=== PATIENT | female | born 1950 | race Caucasian/White ===

== ENCOUNTER → 2016-12-26 | Outpatient (CLI) | payer OTHER, MEDICAID ==
[2016-10-19 11:35] VITALS: BP 131/76
--- NOTE | 2016-12-26 15:43 | VAS ---
HISTORY: Feet skin changing colors Study: Bilateral lower extremity arterial pressure and waveform analysis without exercise Comparison: None Findings: Segmental pressure and waveform analysis of the right and left lower extremity were obtained from th e common femoral artery to tibial vasculature. The right and left lower extremities demonstrate tri phasic waveforms with normal segmental pressures. Normal ABIs are observed. An MISA of 1.19 is obse rved on the right. MISA of 1.13 is observed on the left. IMPRESSION: Normal evaluation of segmental pressure and waveform analysis of the right and left lower extremity. Reported By:
== END ==
LOC: RAD 13:14
PROVIDERS: ATTEND Nurse Practitioner Family
DX: I77.89 Other specified disorders of arteries and arterioles (principal); R23.8 Other skin changes; I73.00 Raynaud's syndrome without gangrene
CPT/HCPCS: 93922

== ENCOUNTER → 2017-01-06 | Outpatient (CLI) | payer OTHER, MEDICAID ==
[2016-10-19 11:35] VITALS: BP 131/76
[2017-01-06 09:03] LABS: ALBUMIN 3.3 g/dL (3.4-5.0); BILIRUBIN,DIRECT 0.08 mg/dL (0-0.2); CHOL/HDL RATIO 2.8 (0.0-5.0); TOTAL PROTEIN 6.8 g/dL (6.4-8.2)
== END ==
LOC: LAB 08:17
PROVIDERS: ATTEND Internal Medicine Cardiovascular Disease
DX: R00.2 Palpitations (principal); E78.2 Mixed hyperlipidemia
CPT/HCPCS: 36415; 80061; 80076

== ENCOUNTER → 2017-02-11 | Outpatient (CLI) | payer OTHER, MEDICAID ==
[2016-10-19 11:35] VITALS: BP 131/76
--- NOTE | 2017-02-11 17:50 | MRI ---
STUDY: MRI OF THE BRAIN WITHOUT GADOLINIUM HISTORY: Amnesia. Blurred vision. Confusion. Unsteady gait. Technique: Multiplanar multi-sequence MRI of the brain was obtained utilizing standard departmental protocol. Sagittal and axial T1, axial T2, FLAIR, diffusion (DWI/ADC) images through the brain were performed. Comparison: Head CT dated October 19, 2016 Findings: The sulci, cisterns and ventricles are prominent consistent with diffuse volume loss. There are conf luent and scattered foci of T2 prolongation in the periventricular and subcortical white matter of b oth hemispheres. This is a nonspecific finding which likely represents microangiopathic change in a patient of this age. There is no evidence of acute territorial infarction, hemorrhage, mass, mass effect, or midline shif t. There are no abnormal intra-axial or extra-axial fluid collections. The major intracranial vascular flow voids appear intact. The vertebral arteries are codominent. The re is bilateral aphakia. IMPRESSION: 1. No evidence of acute intracranial abnormality. 2. Nonspecific white matter change and volume loss. Reported By:
== END ==
LOC: RAD 14:43
PROVIDERS: ATTEND Nurse Practitioner Family
DX: R41.3 Other amnesia (principal)
CPT/HCPCS: 70551

== ENCOUNTER → 2017-03-05 | Outpatient (CLI) | payer OTHER, MEDICAID ==
[2016-10-19 11:35] VITALS: BP 131/76
--- NOTE | 2017-03-05 08:29 | RAD ---
Examination: X-rays of the left hip. Clinical history: Left hip pain, no trauma. Technique: An AP view of the pelvis and an AP view of the left hip were obtained. Comparison: None available. Findings: No acute fracture, dislocation, or destructive bony lesion is noted. No arthropathy is appreciated at the hips bilaterally. Mild degenerative changes are noted in the vi sualized portion of the lumbar spine. Calcific densities are seen overlying the pelvis, likely due to phleboliths. Impression: 1. No acute fracture or dislocation. Reported By:
== END ==
LOC: RAD 08:02
PROVIDERS: ATTEND Nurse Practitioner Family
DX: M25.552 Pain in left hip (principal)
CPT/HCPCS: 73501

== ENCOUNTER 2017-04-21 16:10 | Inpatient (IN) | payer OTHER, MEDICAID ==
[2017-04-21] MEDS ORDERED: SALINE 3% 15 ML NEB TX NEB ONE (18:00)
--- NOTE | 2017-04-21 18:05 | RAD ---
HISTORY: Pneumonia. Study: PA and lateral chest. Comparison: Chest x-ray dated October 19, 2016. Findings: Right chest Port-A-Cath appears unchanged given technique . The cardiac silhouette is unremarkable. No obvious focal consolidation, pleural effusion, or pneumothorax. The bony thorax is unremarkable . IMPRESSION: 1. No acute cardiopulmonary disease. Reported By:
[2017-04-21] MEDS ORDERED: SALINE 3% 15 ML NEB TX ONE (18:23)
[2017-04-21 18:26] LABS: BASOPHILS # (AUTO) 0.1 X10^3/uL (0.0-0.1); BASOPHILS % (AUTO) 1.3 % (0.2-1.0); EOSINOPHILS # (AUTO) 0.2 x10^3/uL (0.0-0.2); EOSINOPHILS % (AUTO) 1.8 % (0.9-2.9); HEMATOCRIT 37.7 % (36.0-47.0); HEMOGLOBIN 12.5 g/dL (12.0-16.0); LYMPHOCYTES # (AUTO) 1.9 X10^3/uL (1.3-2.9); LYMPHOCYTES % (AUTO) 18.5 % (21.0-51.0); MEAN CORPUSCULAR HEMOGLOBIN 28.1 pg (27.0-34.0); MEAN CORPUSCULAR HGB CONC 33.2 g/dL (33.0-35.0); MEAN CORPUSCULAR VOLUME 84.8 fL (80.0-100.0); MEAN PLATELET VOLUME 8.5 fL (7.4-11.0); MONOCYTES # (AUTO) 0.8 x10^3/uL (0.3-0.8); MONOCYTES % (AUTO) 7.7 % (0.0-13.0); NEUTROPHILS # (AUTO) 7.4 x10^3/uL (2.2-4.8); NEUTROPHILS % (AUTO) 70.7 % (42.0-75.0); PLATELET COUNT 248 X10^3/uL (150.0-450.0); RED BLOOD COUNT 4.45 X10^6/uL (3.5-5.4); RED CELL DISTRIBUTION WIDTH 14.6 % (11.6-16.5); WHITE BLOOD COUNT 10.5 X10^3/uL (3.6-10.0)
[2017-04-21 18:37] VITALS: BMI 45.7
[2017-04-21 18:39] LABS: ALANINE AMINOTRANSFERASE 29 Units/L (12-78); ALBUMIN 3.2 g/dL (3.4-5.0); ALKALINE PHOSPHATASE 90 Units/L (46-116); ASPARTATE AMINO TRANSFERASE 22 Units/L (15-37); BLOOD UREA NITROGEN 15 mg/dL (7-18); CALCIUM 9.2 mg/dL (8.5-10.1); CARBON DIOXIDE 30.8 mmol/L (21-32); CHLORIDE 107 mmol/L (98-107); COR CA(FOR HYPOALB) 9.8 mg/dL (8.5-10.1); CREATININE 0.69 mg/dL (0.55-1.02); GLUCOSE 102 mg/dL (65-99); SODIUM 140 mmol/L (136-145); TOTAL PROTEIN 6.4 g/dL (6.4-8.2); eGFR BLACK RACES > 60 (>60); eGFR NON BLACK RACES > 60 (>60)
--- NOTE | 2017-04-21 18:39 | DR.H&P ---
H&P - History & Physical for Day of: H&P Date: 04/21/17 - Chief Complaint Chief Complaint: C/C/C, WHEEZING AND SOB - Allergies Allergies/Adverse Reactions: Allergies Allergy/AdvReac Type Severity Reaction Status Date / Time MS Azithromycin Allergy Intermediate Verified 12/14/15 16:25 [From Zithromax] MS Morphine [Morphine] Allergy Intermediate Verified 12/14/15 16:25 MS Nitrofurantoin Allergy Intermediate Verified 12/14/15 16:25 [From Macrodantin] MS Sulfa Drugs [Sulfa Drugs] Allergy Intermediate Verified 12/14/15 16:25 - History of Present Illness History of Present Illness: mRS. Collazo IS A 67-YEAR-OLD WHITE FEMALE WHO WAS A DIRECT ADMIT FROM dR. Bolaños'S OFFICE AFTER FAILING OUTPATIENT TREATMENT FOR ACUTE BRONCHITIS. pATIENT HAS HAD INCREASED USE SUBJECTIVE MEDS WELL im rOCEPHIN AND STEROIDS WITHOUT IMPROVEMENT. pATIENT HAS A PAST MEDICAL HISTORY OF copd AND IS FOLLOWED BY d[facility]. [facility] LEGAL LIBRARIAN. pLAN TO ADMIT PATIENT FOR iv ANTIBIOTICS, iv STEROIDS, RESPIRATORY THERAPY AND FURTHER EVALUATION OF ACUTE ON CHRONIC ILLNESS. pLAN TO RESUME HOME MEDICATIONS AND REPEAT A.M. LABS - Past Medical History Past Medical History: Angina, Arthritis, Asthma, COPD, Dyslipidemia, Hypertension, Sleep Apnea - Past Surgical History Surgical History: , Cholecystectomy, Ortho Surgery, Other - Family History Family Medical History: Diabetes Mellitus, [place], Hypertension - Social History Does patient currently use any type of tobacco product: No Have you used tobacco products in the last 12 months: No Type of Tobacco Use: None Does any household member use tobacco: No Alcohol Use: None Drug Use: None - Review of Systems Constitutional: Weakness Eyes: No Symptoms Reported ENT: No Symptoms Reported Respiratory: Cough, Shortness of Breath, Pleuritic Pain, Wheezing Cardiovascular: Chest Pain (PLEURITC TYPE CP), Edema Gastrointestinal: Nausea Genitourinary: No Symptoms Reported Musculoskeletal: Back Pain Skin: No Symptoms Reported Neurological: Weakness - Physical Exam Vital Signs: Temperature 97.9 F Pulse Rate [Right Radial] 88 Respiratory Rate 20 Blood Pressure [Left Arm] 142/95 Blood Pressure [Right Arm] 123/59 Blood Pressure 131/76 O2 Sat by Pulse Oximetry 93 Oriented: Normal Eyes: Normal Ear: Normal Nose: Normal Throat: Dry Respiratory: Wheezes Throughout, RLL Diminished, LLL Diminished Cardiovascular: Tachycardia : Normal Auscultation: Bowel Sounds: Normal Palpation: Normal Tenderness: Normal Skin: Normal Musculoskeletal: Back:Thoracic, Back:Lumbar Psychiatric: Anxiety Affect: Anxious Speech Pattern: Clear, Appropriate - Assessment/Plan (1) COPD (chronic obstructive pulmonary disease) Qualifiers: COPD type: COPD with acute exacerbation Chronic bronchitis type: C Emphysema type: E Qualified Code(s): J44.1 - Chronic obstructive pulmonary disease with (acute) exacerbation Status: Chronic Plan: ADMIT, PNEUMONIA PROTOCOL USING iv zOSYN AND lEVAQUIN, GENTLE iv HYDRATION , BLOOD AND SPUTUM CULTURES, RESPIRATORY THERAPY AND SUPPLEMENTAL o2, CHEST X- RAY. pLAN TO REPEAT A.M. LABS, CONTINUE HOME MEDICATION, SUPPORTIVE CARE (2) Acute bronchitis Qualifiers: Bronchitis organism: B Status: Acute Plan: SEE ABOVE (3) Arthritis Status: Chronic (4) Asthma Qualifiers: Asthma severity: A Asthma complication type: A Status: Chronic (5) CAD (coronary artery disease) Qualifiers: Coronary Disease-Associated Artery/Lesion type: C [place] vs. transplanted heart: N Associated angina: A Status: Chronic (6) Hypertension Qualifiers: Hypertension type: H Status: Chronic (7) Raynaud disease Qualifiers: Raynaud?s-associated gangrene presence: R Status: Chronic
[2017-04-21] MEDS ORDERED: ZOFRAN INJ 4 MG VIAL IVP PRN (19:02)
[2017-04-21] MEDS ORDERED: NS 1/2 1000 ML IV 1,000 ML IV ONE (19:26)
[2017-04-21] MEDS: NS 1/2 1000 ML IV 1,000 ML IV SCH (19:34)
[2017-04-21] MEDS: ZOSYN VIAL 4.5 GM 4.5 GM in NS 100 ML IV + SPIKE MINIBAG* 100 ML IV SCH ×2 (19:34→23:57)
[2017-04-21] MEDS: SOLU-Medrol 125 MG VIAL IVP SCH ×2 (19:35→23:57)
[2017-04-21 20:06] LABS: ABG BASE EXCESS 6.3 mmol/L (-2.0-2.0); ABG HCO3 30.6 mmol/L (22-26)
[2017-04-21] MEDS ORDERED: DUONEB 0.5 MG/3 MG ONE (20:56)
[2017-04-21] MEDS: DUONEB 0.5 MG/3 MG NEB SCH (21:11)
[2017-04-21] MEDS: TUSSIONEX PENNKINETIC SUSP PO PRN (21:25)
[2017-04-21] MEDS: ROBITUSSIN DM PO SCH (21:26)
[2017-04-22] MEDS ORDERED: DUONEB 0.5 MG/3 MG ONE (00:47)
[2017-04-22] MEDS: DUONEB 0.5 MG/3 MG NEB SCH ×3 (01:03→07:48)
[2017-04-22] MEDS: SOLU-Medrol 125 MG VIAL IVP SCH ×3 (05:43→22:16)
[2017-04-22] MEDS: ZOSYN VIAL 4.5 GM 4.5 GM in NS 100 ML IV + SPIKE MINIBAG* 100 ML IV SCH ×3 (05:43→22:16)
[2017-04-22] MEDS: ROBITUSSIN DM PO SCH ×4 (09:14→22:15)
[2017-04-22] MEDS: NORCO 5/325 MG TAB PO PRN ×2 (09:14→22:24)
[2017-04-22] MEDS: LEVAQUIN PREMIX IV 750 MG 750 MG/150 ML BAG IV SCH (10:18)
[2017-04-22] MEDS: XOPENEX 1.25 MG/3 ML NEBULE NEB SCH ×2 (11:47→17:02)
[2017-04-22] MEDS ORDERED: MOTRIN TAB 800 MG PO PRN (18:01)
[2017-04-22] MEDS: TUSSIONEX PENNKINETIC SUSP PO PRN (18:16)
[2017-04-22] MEDS: NEURONTIN CAP 100 MG PO SCH (22:14)
[2017-04-22] MEDS: ZOCOR TAB 40 MG PO SCH (22:15)
[2017-04-22] MEDS: VISTARIL PO PRN (22:24)
[2017-04-23] MEDS: XOPENEX 1.25 MG/3 ML NEBULE NEB SCH ×4 (00:58→17:03)
[2017-04-23] MEDS: ZOSYN VIAL 4.5 GM 4.5 GM in NS 100 ML IV + SPIKE MINIBAG* 100 ML IV SCH ×3 (06:27→21:03)
[2017-04-23] MEDS: SOLU-Medrol 125 MG VIAL IVP SCH (06:28)
--- NOTE | 2017-04-23 06:28 | RAD ---
HISTORY: Shortness of breath Study: Chest one view Comparison: April 21, 2017 Findings: There is a port present on the right. The heart is within normal limits in size. The lior are normal . The lungs are free of acute alveolar infiltrates. No pleural effusions are identified. There is a focus of subsegmental atelectasis in the left lung base. The bony thorax is unremarkable. IMPRESSION: Minimal subsegmental atelectasis left lung base Reported By:
[2017-04-23 06:30] LABS: BASOPHILS % (AUTO) 0.1 % (0.2-1.0); HEMATOCRIT 36.4 % (36.0-47.0); LYMPHOCYTES # (AUTO) 0.6 X10^3/uL (1.3-2.9); LYMPHOCYTES % (AUTO) 5.8 % (21.0-51.0); MEAN CORPUSCULAR HEMOGLOBIN 28.1 pg (27.0-34.0); MEAN CORPUSCULAR VOLUME 85.1 fL (80.0-100.0); MONOCYTES # (AUTO) 0.2 x10^3/uL (0.3-0.8); MONOCYTES % (AUTO) 1.7 % (0.0-13.0); NEUTROPHILS # (AUTO) 9.4 x10^3/uL (2.2-4.8); NEUTROPHILS % (AUTO) 92.4 % (42.0-75.0); PLATELET COUNT 252 X10^3/uL (150.0-450.0); RED BLOOD COUNT 4.28 X10^6/uL (3.5-5.4); RED CELL DISTRIBUTION WIDTH 14.5 % (11.6-16.5); WHITE BLOOD COUNT 10.2 X10^3/uL (3.6-10.0)
[2017-04-23 06:33] LABS: ALANINE AMINOTRANSFERASE 49 Units/L (12-78); ALBUMIN 2.7 g/dL (3.4-5.0); ALKALINE PHOSPHATASE 72 Units/L (46-116); ASPARTATE AMINO TRANSFERASE 27 Units/L (15-37); BLOOD UREA NITROGEN 13 mg/dL (7-18); CALCIUM 9.1 mg/dL (8.5-10.1); CARBON DIOXIDE 30.5 mmol/L (21-32); CHLORIDE 107 mmol/L (98-107); COR CA(FOR HYPOALB) 10.1 mg/dL (8.5-10.1); COR NA(FOR HYPERGLY) 144 mmol/L (136-145); CREATININE 0.82 mg/dL (0.55-1.02); GLUCOSE 160 mg/dL (65-99); SODIUM 143 mmol/L (136-145); TOTAL PROTEIN 5.9 g/dL (6.4-8.2); eGFR BLACK RACES > 60 (>60); eGFR NON BLACK RACES > 60 (>60)
[2017-04-23] MEDS: VISTARIL PO PRN (06:35)
[2017-04-23 07:23] LABS: BAND NEUTROPHILS % 1 % (0-10)
[2017-04-23 07:24] LABS: PLATELET MORPHOLOGY COMMENT NORMAL (NORMAL)
[2017-04-23] MEDS ORDERED: DILTIAZEM HCL PO SCH (09:00)
[2017-04-23] MEDS ORDERED: PATIENT'S HOME MEDICATION (Multiple Vitamins W/ Minerals [Multiple Vitamins W/ Minerals] 1 PO SCH (09:00)
[2017-04-23] MEDS ORDERED: PATIENT'S HOME MEDICATION (Lisinopril [Lisinopril] 20 MG) PO SCH (09:00)
[2017-04-23] MEDS ORDERED: SIMVASTATIN 80 MG PO SCH (09:00)
[2017-04-23] MEDS ORDERED: ZESTRIL TAB 20 MG ONE (09:12)
[2017-04-23] MEDS: ROBITUSSIN DM PO SCH ×4 (10:04→20:27)
[2017-04-23] MEDS: LEVAQUIN PREMIX IV 750 MG 750 MG/150 ML BAG IV SCH (10:04)
[2017-04-23] MEDS: ASPIRIN PO SCH (10:05)
[2017-04-23] MEDS: K-DUR TAB 20 MEQ PO SCH (10:05)
[2017-04-23] MEDS: ZESTRIL TAB 20 MG PO SCH (10:05)
[2017-04-23] MEDS: CARDIZEM SR 120 MG PO SCH (10:05)
[2017-04-23] MEDS: COLACE CAP 100 MG PO SCH (10:05)
[2017-04-23] MEDS: TAB-A-VITE PO SCH (10:05)
[2017-04-23] MEDS: LASIX PO SCH (10:06)
[2017-04-23] MEDS: TOPROL XL PO SCH (10:06)
[2017-04-23] MEDS: NS 1/2 1000 ML IV 1,000 ML IV SCH (10:08)
[2017-04-23] MEDS ORDERED: NS 1/2 1000 ML IV 1,000 ML IV ONE (10:50)
[2017-04-23] MEDS: ZOCOR TAB 40 MG PO SCH (20:27)
[2017-04-23] MEDS: NEURONTIN CAP 100 MG PO SCH (20:27)
[2017-04-23] MEDS: NORCO 5/325 MG TAB PO PRN (20:31)
[2017-04-24] MEDS: XOPENEX 1.25 MG/3 ML NEBULE NEB SCH ×4 (00:58→17:12)
[2017-04-24] MEDS: ZOSYN VIAL 4.5 GM 4.5 GM in NS 100 ML IV + SPIKE MINIBAG* 100 ML IV SCH ×3 (05:15→21:11)
[2017-04-24 06:34] LABS: BASOPHILS % (AUTO) 0.1 % (0.2-1.0); HEMATOCRIT 36.4 % (36.0-47.0); HEMOGLOBIN 11.9 g/dL (12.0-16.0); LYMPHOCYTES # (AUTO) 1.5 X10^3/uL (1.3-2.9); LYMPHOCYTES % (AUTO) 16.3 % (21.0-51.0); MEAN CORPUSCULAR HEMOGLOBIN 28.1 pg (27.0-34.0); MEAN CORPUSCULAR HGB CONC 32.7 g/dL (33.0-35.0); MEAN CORPUSCULAR VOLUME 85.9 fL (80.0-100.0); MONOCYTES # (AUTO) 0.6 x10^3/uL (0.3-0.8); MONOCYTES % (AUTO) 6.7 % (0.0-13.0); NEUTROPHILS # (AUTO) 7.2 x10^3/uL (2.2-4.8); NEUTROPHILS % (AUTO) 76.9 % (42.0-75.0); PLATELET COUNT 251 X10^3/uL (150.0-450.0); RED BLOOD COUNT 4.24 X10^6/uL (3.5-5.4); RED CELL DISTRIBUTION WIDTH 14.7 % (11.6-16.5); WHITE BLOOD COUNT 9.4 X10^3/uL (3.6-10.0)
[2017-04-24 06:37] LABS: ALANINE AMINOTRANSFERASE 47 Units/L (12-78); ALBUMIN 2.6 g/dL (3.4-5.0); ALKALINE PHOSPHATASE 65 Units/L (46-116); ASPARTATE AMINO TRANSFERASE 19 Units/L (15-37); BLOOD UREA NITROGEN 18 mg/dL (7-18); CARBON DIOXIDE 32.5 mmol/L (21-32); CHLORIDE 109 mmol/L (98-107); COR CA(FOR HYPOALB) 10.1 mg/dL (8.5-10.1); CREATININE 0.89 mg/dL (0.55-1.02); GLUCOSE 105 mg/dL (65-99); SODIUM 145 mmol/L (136-145); TOTAL PROTEIN 5.7 g/dL (6.4-8.2); eGFR BLACK RACES > 60 (>60); eGFR NON BLACK RACES > 60 (>60)
[2017-04-24] MEDS ORDERED: PATIENT'S HOME MEDICATION PO SCH ×2 (09:00)
[2017-04-24] MEDS ORDERED: NS 1/2 1000 ML IV 1,000 ML IV ONE (10:01)
[2017-04-24] MEDS ORDERED: ZESTRIL TAB 20 MG ONE (10:03)
[2017-04-24] MEDS: NS 1/2 1000 ML IV 1,000 ML IV SCH ×2 (10:07→16:19)
[2017-04-24] MEDS: LEVAQUIN PREMIX IV 750 MG 750 MG/150 ML BAG IV SCH (10:07)
[2017-04-24] MEDS: TOPROL XL PO SCH (10:08)
[2017-04-24] MEDS: ROBITUSSIN DM PO SCH ×4 (10:08→21:12)
[2017-04-24] MEDS: TAB-A-VITE PO SCH (10:08)
[2017-04-24] MEDS: ASPIRIN PO SCH (10:08)
[2017-04-24] MEDS: CARDIZEM SR 120 MG PO SCH (10:08)
[2017-04-24] MEDS: ZESTRIL TAB 20 MG PO SCH (10:08)
[2017-04-24] MEDS: COLACE CAP 100 MG PO SCH (10:08)
[2017-04-24] MEDS: LASIX PO SCH (10:08)
[2017-04-24] MEDS: K-DUR TAB 20 MEQ PO SCH (10:42)
[2017-04-24] MEDS: VISTARIL PO PRN (12:01)
[2017-04-24] MEDS: ZOCOR TAB 40 MG PO SCH (21:12)
[2017-04-24] MEDS: NORCO 5/325 MG TAB PO PRN (21:12)
[2017-04-24] MEDS: NEURONTIN CAP 100 MG PO SCH (21:12)
[2017-04-24] MEDS: TUSSIONEX PENNKINETIC SUSP PO PRN (21:12)
[2017-04-25] MEDS: XOPENEX 1.25 MG/3 ML NEBULE NEB SCH ×4 (01:06→17:39)
[2017-04-25 01:17] LABS: CREATINE KINASE 33 Units/L (26-192); CREATINE KINASE MB < 1.0 ng/mL (0-4.0); TROPONIN I < 0.02 ng/mL (0-1.5)
[2017-04-25] MEDS: ZOSYN VIAL 4.5 GM 4.5 GM in NS 100 ML IV + SPIKE MINIBAG* 100 ML IV SCH ×3 (05:47→21:28)
[2017-04-25 06:18] LABS: BASOPHILS % (AUTO) 0.2 % (0.2-1.0); EOSINOPHILS # (AUTO) 0.2 x10^3/uL (0.0-0.2); EOSINOPHILS % (AUTO) 1.9 % (0.9-2.9); HEMATOCRIT 35.3 % (36.0-47.0); HEMOGLOBIN 11.7 g/dL (12.0-16.0); LYMPHOCYTES # (AUTO) 2.7 X10^3/uL (1.3-2.9); LYMPHOCYTES % (AUTO) 31.2 % (21.0-51.0); MEAN CORPUSCULAR HEMOGLOBIN 28.7 pg (27.0-34.0); MEAN CORPUSCULAR HGB CONC 33.1 g/dL (33.0-35.0); MEAN CORPUSCULAR VOLUME 86.7 fL (80.0-100.0); MEAN PLATELET VOLUME 8.7 fL (7.4-11.0); MONOCYTES # (AUTO) 0.8 x10^3/uL (0.3-0.8); MONOCYTES % (AUTO) 9.5 % (0.0-13.0); NEUTROPHILS # (AUTO) 4.9 x10^3/uL (2.2-4.8); NEUTROPHILS % (AUTO) 57.2 % (42.0-75.0); PLATELET COUNT 224 X10^3/uL (150.0-450.0); RED BLOOD COUNT 4.07 X10^6/uL (3.5-5.4); RED CELL DISTRIBUTION WIDTH 14.8 % (11.6-16.5); WHITE BLOOD COUNT 8.6 X10^3/uL (3.6-10.0)
[2017-04-25 06:31] LABS: ALANINE AMINOTRANSFERASE 38 Units/L (12-78); ALBUMIN 2.4 g/dL (3.4-5.0); ALKALINE PHOSPHATASE 61 Units/L (46-116); ASPARTATE AMINO TRANSFERASE 20 Units/L (15-37); BLOOD UREA NITROGEN 22 mg/dL (7-18); CALCIUM 8.4 mg/dL (8.5-10.1); CARBON DIOXIDE 35.2 mmol/L (21-32); CHLORIDE 107 mmol/L (98-107); COR CA(FOR HYPOALB) 9.7 mg/dL (8.5-10.1); CREATININE 1.02 mg/dL (0.55-1.02); GLUCOSE 81 mg/dL (65-99); SODIUM 144 mmol/L (136-145); TOTAL PROTEIN 5.4 g/dL (6.4-8.2); eGFR BLACK RACES > 60 (>60); eGFR NON BLACK RACES 58 (>60)
--- NOTE | 2017-04-25 06:41 | RAD ---
HISTORY: Shortness of breath Study: Chest one view Comparison: April 23, 2017 Findings: There is a port present on the right. The heart is within normal limits in size. The lungs are free of acute alveolar infiltrates. No pleural effusions are identified. The bony thorax is unremarkable. IMPRESSION: Lungs clear Reported By:
[2017-04-25] MEDS ORDERED: ZESTRIL TAB 20 MG ONE (09:39)
[2017-04-25] MEDS: LASIX PO SCH (09:50)
[2017-04-25] MEDS: ASPIRIN PO SCH (09:50)
[2017-04-25] MEDS: MICRO K EXTEN CAP 10 MEQ PO SCH (09:51)
[2017-04-25] MEDS: TAB-A-VITE PO SCH (09:51)
[2017-04-25] MEDS: COLACE CAP 100 MG PO SCH (09:51)
[2017-04-25] MEDS: ZESTRIL TAB 20 MG PO SCH (09:52)
[2017-04-25] MEDS: CARDIZEM SR 120 MG PO SCH (09:52)
[2017-04-25] MEDS: TOPROL XL PO SCH (09:52)
[2017-04-25] MEDS: LEVAQUIN PREMIX IV 750 MG 750 MG/150 ML BAG IV SCH (09:52)
[2017-04-25] MEDS: ROBITUSSIN DM PO SCH ×4 (09:53→21:30)
[2017-04-25] MEDS ORDERED: NS 1/2 1000 ML IV 1,000 ML IV ONE (21:26)
[2017-04-25] MEDS: NS 1/2 1000 ML IV 1,000 ML IV SCH (21:28)
[2017-04-25] MEDS: ZOCOR TAB 40 MG PO SCH (21:30)
[2017-04-25] MEDS: TUSSIONEX PENNKINETIC SUSP PO PRN (21:30)
[2017-04-25] MEDS: NEURONTIN CAP 100 MG PO SCH (21:31)
[2017-04-25] MEDS: NORCO 5/325 MG TAB PO PRN (21:31)
[2017-04-26] MEDS: XOPENEX 1.25 MG/3 ML NEBULE NEB SCH ×3 (00:47→12:23)
[2017-04-26] MEDS: ZOSYN VIAL 4.5 GM 4.5 GM in NS 100 ML IV + SPIKE MINIBAG* 100 ML IV SCH ×2 (05:19→13:53)
[2017-04-26 06:12] LABS: BASOPHILS % (AUTO) 0.3 % (0.2-1.0); EOSINOPHILS # (AUTO) 0.4 x10^3/uL (0.0-0.2); EOSINOPHILS % (AUTO) 4.3 % (0.9-2.9); HEMATOCRIT 39.3 % (36.0-47.0); HEMOGLOBIN 12.9 g/dL (12.0-16.0); LYMPHOCYTES # (AUTO) 2.3 X10^3/uL (1.3-2.9); LYMPHOCYTES % (AUTO) 26.5 % (21.0-51.0); MEAN CORPUSCULAR HEMOGLOBIN 28.2 pg (27.0-34.0); MEAN CORPUSCULAR HGB CONC 32.9 g/dL (33.0-35.0); MEAN CORPUSCULAR VOLUME 85.7 fL (80.0-100.0); MEAN PLATELET VOLUME 8.8 fL (7.4-11.0); MONOCYTES # (AUTO) 0.5 x10^3/uL (0.3-0.8); MONOCYTES % (AUTO) 6.1 % (0.0-13.0); NEUTROPHILS # (AUTO) 5.5 x10^3/uL (2.2-4.8); NEUTROPHILS % (AUTO) 62.8 % (42.0-75.0); PLATELET COUNT 241 X10^3/uL (150.0-450.0); RED BLOOD COUNT 4.58 X10^6/uL (3.5-5.4); RED CELL DISTRIBUTION WIDTH 14.9 % (11.6-16.5); WHITE BLOOD COUNT 8.8 X10^3/uL (3.6-10.0)
[2017-04-26 06:23] LABS: ALANINE AMINOTRANSFERASE 45 Units/L (12-78); ALBUMIN 2.6 g/dL (3.4-5.0); ALKALINE PHOSPHATASE 80 Units/L (46-116); ASPARTATE AMINO TRANSFERASE 35 Units/L (15-37); BLOOD UREA NITROGEN 17 mg/dL (7-18); CALCIUM 8.6 mg/dL (8.5-10.1); CARBON DIOXIDE 37.2 mmol/L (21-32); CHLORIDE 106 mmol/L (98-107); COR CA(FOR HYPOALB) 9.7 mg/dL (8.5-10.1); CREATININE 1.01 mg/dL (0.55-1.02); GLUCOSE 105 mg/dL (65-99); SODIUM 143 mmol/L (136-145); TOTAL PROTEIN 5.9 g/dL (6.4-8.2); eGFR BLACK RACES > 60 (>60); eGFR NON BLACK RACES 58 (>60)
[2017-04-26 06:53] LABS: PLATELET MORPHOLOGY COMMENT NORMAL (NORMAL)
[2017-04-26] MEDS ORDERED: ZESTRIL TAB 20 MG ONE (09:42)
[2017-04-26] MEDS: ZESTRIL TAB 20 MG PO SCH (09:45)
[2017-04-26] MEDS: ASPIRIN PO SCH (09:45)
[2017-04-26] MEDS: CARDIZEM SR 120 MG PO SCH (09:46)
[2017-04-26] MEDS: LASIX PO SCH (09:46)
[2017-04-26] MEDS: TAB-A-VITE PO SCH (09:46)
[2017-04-26] MEDS: TOPROL XL PO SCH (09:46)
[2017-04-26] MEDS: ROBITUSSIN DM PO SCH ×2 (09:47→12:14)
[2017-04-26] MEDS: COLACE CAP 100 MG PO SCH (09:47)
[2017-04-26] MEDS: LEVAQUIN PREMIX IV 750 MG 750 MG/150 ML BAG IV SCH (09:47)
[2017-04-26] MEDS: MICRO K EXTEN CAP 10 MEQ PO SCH (09:47)
[2017-04-26 15:36] VITALS: BP 141/62
== END 2017-04-26 16:15 | disposition home or self-care (01) | DRG 202 ==
LOC: MED/SURG 16:10
PROVIDERS: ADMIT Internal Medicine; ATTEND Internal Medicine
DX: J20.8 Acute bronchitis due to other specified organisms (principal); J44.1 Chronic obstructive pulmonary disease with (acute) exacerbation; R06.02 Shortness of breath; E78.2 Mixed hyperlipidemia; I10 Essential (primary) hypertension; M13.89 Other specified arthritis, multiple sites; I25.10 Atherosclerotic heart disease of native coronary artery without angina pectoris; I73.00 Raynaud's syndrome without gangrene; J45.998 Other asthma; R60.0 Localized edema; R53.1 Weakness; R26.89 Other abnormalities of gait and mobility
CPT/HCPCS: 36415; 36600; 71010; 71020; 80053; 82550; 82553; 82803; 84484; 85025; 87040; 87070; 87205; 93005; 93010; 94640; 94760; 99238; A4222; Q0177; J1956; J2543; J2930; J7620

== ENCOUNTER 2017-07-31 14:38 | Inpatient (IN) | payer OTHER, MEDICAID ==
--- NOTE | 2017-07-31 15:01 | DR.H&P ---
H&P - History & Physical for Day of: H&P Date: 07/31/17 - Chief Complaint Chief Complaint: sob, ccc - Allergies Allergies/Adverse Reactions: Allergies Allergy/AdvReac Type Severity Reaction Status Date / Time azithromycin [From Zithromax] Allergy Verified 04/22/17 00:54 morphine Allergy Verified 04/22/17 00:54 nitrofurantoin Allergy Verified 04/22/17 00:54 [From Macrodantin] Sulfa (Sulfonamide Allergy Verified 04/22/17 00:54 Antibiotics) [SULFA] - History of Present Illness History of Present Illness: 67 WF DIRECT ADMIT FROM DR YANEZ OFFICE WTIH CO SOB, WHEEZING CCC FOR 4-5 DAYS. PT WAS SEEN IN 'S OFFICE WITH TREATMENT WITH ROCEPHIN 1GM IM AND IM STEROIDS INJECTIONS. PT USING NEBULIZER TREATMENTS WITHOUT IMPROVEMENT. PT HAS HX OF COPD, CAD, CHF, OA, HTN. PLAN TO ADMIT WITH PNEUMONIA PROTOCOL, IV ATBX, RESP THERAPY SUPPLEMENTAL O2, BLOOD AND SPUTUM CULTURES. - Past Medical History Past Medical History: Angina, Arthritis, Asthma, COPD, Dyslipidemia, Hypertension, Sleep Apnea - Past Surgical History Surgical History: , Cholecystectomy, Ortho Surgery, Other - Family History Family Medical History: Diabetes Mellitus, [place], Hypertension - Social History Does patient currently use any type of tobacco product: No Have you used tobacco products in the last 12 months: No Type of Tobacco Use: None Does any household member use tobacco: No Alcohol Use: None Drug Use: None - Review of Systems Constitutional: Chills, Weakness Eyes: No Symptoms Reported ENT: No Symptoms Reported Respiratory: Cough, Shortness of Breath, Wheezing Cardiovascular: No Symptoms Reported Gastrointestinal: No Symptoms Reported Genitourinary: No Symptoms Reported Musculoskeletal: Back Pain Skin: No Symptoms Reported Neurological: No Symptoms Reported - Physical Exam Vital Signs: Blood Pressure [Left Arm] 141/62 Blood Pressure [Right Arm] 122/64 Blood Pressure 141/62 Oriented: Normal Eyes: Normal Ear: Normal Nose: Normal Throat: Normal Respiratory: RLL Diminished, LLL Diminished Cardiovascular: Normal : Normal Auscultation: Bowel Sounds: Normal Palpation: Normal Tenderness: Normal Skin: Normal Musculoskeletal: Back:Lumbar Psychiatric: Normal Mood Description: Calm Speech Pattern: Clear - Assessment/Plan (1) Acute bronchitis Status: Acute Plan: PLAN TO ADMIT, RESP THERAPY, SUPPLEMENTAL O2. IV ATBX, IV SOLU MEDROL. ADMISSION LABS, CBC CMP UA CHEST XRAY. RESUME HOME MEDS (2) CAD (coronary artery disease) Status: Chronic (3) Hyperlipidemia Status: Chronic (4) Hypertension Status: Chronic
[2017-07-31] MEDS ORDERED: TUSSIONEX PENNKINETIC SUSP PO PRN (15:08)
[2017-07-31] MEDS ORDERED: PERCOCET TAB 5/325 MG PO PRN (15:51)
[2017-07-31] MEDS ORDERED: XOPENEX 1.25 MG/3 ML NEBULE NEB ONE (16:04)
[2017-07-31] MEDS ORDERED: SALINE 3% 15 ML NEB TX NEB ONE (16:19)
[2017-07-31] MEDS ORDERED: NS 1/2 1000 ML IV 1,000 ML IV ONE (16:19)
[2017-07-31] MEDS: BROVANA IN SCH ×2 (16:19→20:49)
[2017-07-31 16:21] LABS: BASOPHILS % (AUTO) 0.2 % (0.2-1.0); HEMOGLOBIN 13.4 g/dL (12.0-16.0); LYMPHOCYTES # (AUTO) 1.2 X10^3/uL (1.3-2.9); LYMPHOCYTES % (AUTO) 10.6 % (21.0-51.0); MEAN CORPUSCULAR HEMOGLOBIN 27.8 pg (27.0-34.0); MEAN CORPUSCULAR HGB CONC 32.7 g/dL (33.0-35.0); MEAN PLATELET VOLUME 8.6 fL (7.4-11.0); MONOCYTES # (AUTO) 0.5 x10^3/uL (0.3-0.8); MONOCYTES % (AUTO) 4.5 % (0.0-13.0); NEUTROPHILS # (AUTO) 9.8 x10^3/uL (2.2-4.8); NEUTROPHILS % (AUTO) 84.7 % (42.0-75.0); PLATELET COUNT 264 X10^3/uL (150.0-450.0); RED BLOOD COUNT 4.82 X10^6/uL (3.5-5.4); RED CELL DISTRIBUTION WIDTH 14.8 % (11.6-16.5); WHITE BLOOD COUNT 11.5 X10^3/uL (3.6-10.0)
[2017-07-31] MEDS: XOPENEX 1.25 MG/3 ML NEBULE NEB SCH ×3 (16:21→20:49)
[2017-07-31] MEDS: SOLU-Medrol 125 MG VIAL IVP SCH ×2 (16:26→22:16)
[2017-07-31] MEDS: NS 1/2 1000 ML IV 1,000 ML IV SCH (16:26)
[2017-07-31 16:37] LABS: ALANINE AMINOTRANSFERASE 28 Units/L (12-78); ALBUMIN 3.6 g/dL (3.4-5.0); ALKALINE PHOSPHATASE 106 Units/L (46-116); ASPARTATE AMINO TRANSFERASE 18 Units/L (15-37); BLOOD UREA NITROGEN 14 mg/dL (7-18); CALCIUM 10.4 mg/dL (8.5-10.1); CARBON DIOXIDE 28.5 mmol/L (21-32); CHLORIDE 105 mmol/L (98-107); COR NA(FOR HYPERGLY) 141 mmol/L (136-145); CREATININE 0.85 mg/dL (0.55-1.02); SODIUM 141 mmol/L (136-145); TOTAL PROTEIN 7.5 g/dL (6.4-8.2); eGFR BLACK RACES > 60 (>60); eGFR NON BLACK RACES > 60 (>60)
--- NOTE | 2017-07-31 16:38 | RAD ---
Examination: Chest, PA and lateral views History: Pneumonia, COPD and hypertension Comparison reference: 04/25/2017 Findings: Continued normal heart size with clear lungs and pleural spaces. A right subclavian injecti on port terminates in the SVC. Impression: No interval change demonstrated; no acute disease. Reported By:
[2017-07-31 17:08] VITALS: BMI 49.9
[2017-07-31] MEDS: ROBITUSSIN DM PO SCH ×2 (18:00→22:16)
[2017-07-31] MEDS ORDERED: MOTRIN TAB 800 MG PO PRN (18:16)
[2017-07-31] MEDS: PULMICORT NEB TX 0.5 MG NEB SCH (20:49)
[2017-07-31] MEDS: ZOCOR TAB 40 MG PO SCH (22:16)
[2017-08-01] MEDS: NS 1/2 1000 ML IV 1,000 ML IV SCH ×2 (05:02→18:24)
[2017-08-01] MEDS: SOLU-Medrol 125 MG VIAL IVP SCH ×3 (05:04→21:00)
[2017-08-01 06:04] LABS: BASOPHILS % (AUTO) 0.1 % (0.2-1.0); HEMATOCRIT 38.7 % (36.0-47.0); HEMOGLOBIN 12.6 g/dL (12.0-16.0); LYMPHOCYTES # (AUTO) 0.7 X10^3/uL (1.3-2.9); LYMPHOCYTES % (AUTO) 7.8 % (21.0-51.0); MEAN CORPUSCULAR HGB CONC 32.5 g/dL (33.0-35.0); MEAN CORPUSCULAR VOLUME 86.2 fL (80.0-100.0); MEAN PLATELET VOLUME 9.3 fL (7.4-11.0); MONOCYTES # (AUTO) 0.1 x10^3/uL (0.3-0.8); MONOCYTES % (AUTO) 1.2 % (0.0-13.0); NEUTROPHILS # (AUTO) 8.5 x10^3/uL (2.2-4.8); NEUTROPHILS % (AUTO) 90.9 % (42.0-75.0); PLATELET COUNT 242 X10^3/uL (150.0-450.0); RED BLOOD COUNT 4.49 X10^6/uL (3.5-5.4); WHITE BLOOD COUNT 9.3 X10^3/uL (3.6-10.0)
[2017-08-01 06:44] LABS: PLATELET MORPHOLOGY COMMENT NORMAL (NORMAL)
[2017-08-01 06:46] LABS: ALANINE AMINOTRANSFERASE 27 Units/L (12-78); ALBUMIN 3.2 g/dL (3.4-5.0); ALKALINE PHOSPHATASE 92 Units/L (46-116); ASPARTATE AMINO TRANSFERASE 13 Units/L (15-37); BLOOD UREA NITROGEN 19 mg/dL (7-18); CALCIUM 10.3 mg/dL (8.5-10.1); CARBON DIOXIDE 27.1 mmol/L (21-32); CHLORIDE 107 mmol/L (98-107); COR CA(FOR HYPOALB) 10.9 mg/dL (8.5-10.1); COR NA(FOR HYPERGLY) 143 mmol/L (136-145); CREATININE 0.94 mg/dL (0.55-1.02); SODIUM 142 mmol/L (136-145); TOTAL PROTEIN 6.8 g/dL (6.4-8.2); eGFR BLACK RACES > 60 (>60); eGFR NON BLACK RACES > 60 (>60)
[2017-08-01] MEDS ORDERED: SALINE 3% 15 ML NEB TX NEB ONE (08:00)
[2017-08-01] MEDS: XOPENEX 1.25 MG/3 ML NEBULE NEB SCH ×4 (08:08→21:53)
[2017-08-01] MEDS: BROVANA IN SCH ×2 (08:09→21:53)
[2017-08-01] MEDS: PULMICORT NEB TX 0.5 MG NEB SCH ×2 (08:10→21:53)
[2017-08-01] MEDS ORDERED: PATIENT'S HOME MEDICATION (Cyanocobalamin (Vitamin B-12) [Vitamin B-12] 1,000 MCG) PO SCH (09:00)
[2017-08-01] MEDS: ASPIRIN PO SCH (09:46)
[2017-08-01] MEDS: LEVAQUIN PREMIX IV 750 MG 750 MG/150 ML BAG IV SCH (09:46)
[2017-08-01] MEDS: ROBITUSSIN DM PO SCH ×4 (09:46→20:54)
[2017-08-01] MEDS: COLACE CAP 100 MG PO SCH (09:46)
[2017-08-01] MEDS: VITAMIN B-12 PO SCH (09:47)
[2017-08-01] MEDS: TOPROL XL PO SCH (09:47)
[2017-08-01] MEDS: CARDIZEM SR 120 MG PO SCH (09:47)
[2017-08-01] MEDS: K-DUR TAB 20 MEQ PO SCH (09:47)
[2017-08-01] MEDS: LASIX PO SCH (09:47)
[2017-08-01] MEDS: ZESTRIL TAB 10 MG PO SCH (09:47)
[2017-08-01] MEDS: PERCOCET TAB 5/325 MG PO PRN (09:48)
[2017-08-01] MEDS: NEURONTIN CAP 100 MG PO SCH (09:48)
[2017-08-01] MEDS ORDERED: VISTARIL PO PRN (14:45)
[2017-08-01] MEDS: ATARAX TAB 25 MG PO PRN (14:59)
[2017-08-01] MEDS ORDERED: NS 1/2 1000 ML IV 1,000 ML IV ONE (17:49)
[2017-08-01] MEDS: ZOCOR TAB 40 MG PO SCH (20:54)
[2017-08-02] MEDS: NS 1/2 1000 ML IV 1,000 ML IV SCH ×2 (00:56→10:44)
[2017-08-02 06:40] LABS: BASOPHILS % (AUTO) 0.1 % (0.2-1.0); HEMATOCRIT 37.8 % (36.0-47.0); HEMOGLOBIN 12.5 g/dL (12.0-16.0); LYMPHOCYTES # (AUTO) 0.8 X10^3/uL (1.3-2.9); LYMPHOCYTES % (AUTO) 7.8 % (21.0-51.0); MEAN CORPUSCULAR HEMOGLOBIN 28.3 pg (27.0-34.0); MEAN CORPUSCULAR HGB CONC 33.1 g/dL (33.0-35.0); MEAN CORPUSCULAR VOLUME 85.4 fL (80.0-100.0); MONOCYTES # (AUTO) 0.2 x10^3/uL (0.3-0.8); MONOCYTES % (AUTO) 2.2 % (0.0-13.0); NEUTROPHILS # (AUTO) 9.6 x10^3/uL (2.2-4.8); NEUTROPHILS % (AUTO) 89.9 % (42.0-75.0); PLATELET COUNT 242 X10^3/uL (150.0-450.0); RED BLOOD COUNT 4.43 X10^6/uL (3.5-5.4); RED CELL DISTRIBUTION WIDTH 14.9 % (11.6-16.5); WHITE BLOOD COUNT 10.6 X10^3/uL (3.6-10.0)
[2017-08-02 06:48] LABS: ALANINE AMINOTRANSFERASE 21 Units/L (12-78); ALKALINE PHOSPHATASE 85 Units/L (46-116); ASPARTATE AMINO TRANSFERASE 12 Units/L (15-37); BLOOD UREA NITROGEN 21 mg/dL (7-18); CALCIUM 10.2 mg/dL (8.5-10.1); CARBON DIOXIDE 29.1 mmol/L (21-32); CHLORIDE 106 mmol/L (98-107); COR NA(FOR HYPERGLY) 143 mmol/L (136-145); CREATININE 1.01 mg/dL (0.55-1.02); SODIUM 142 mmol/L (136-145); TOTAL PROTEIN 6.4 g/dL (6.4-8.2); eGFR BLACK RACES > 60 (>60); eGFR NON BLACK RACES 58 (>60)
[2017-08-02] MEDS: PERCOCET TAB 5/325 MG PO PRN ×2 (06:54→21:02)
[2017-08-02] MEDS: K-DUR TAB 20 MEQ PO SCH (08:24)
[2017-08-02] MEDS: ZESTRIL TAB 10 MG PO SCH (08:24)
[2017-08-02] MEDS: TOPROL XL PO SCH (08:24)
[2017-08-02] MEDS: CARDIZEM SR 120 MG PO SCH (08:24)
[2017-08-02] MEDS: ASPIRIN PO SCH (08:24)
[2017-08-02] MEDS: COLACE CAP 100 MG PO SCH (08:26)
[2017-08-02] MEDS: VITAMIN B-12 PO SCH (08:26)
[2017-08-02] MEDS: NEURONTIN CAP 100 MG PO SCH (08:26)
[2017-08-02] MEDS: LASIX PO SCH (08:26)
[2017-08-02] MEDS: ROBITUSSIN DM PO SCH ×4 (08:27→21:04)
[2017-08-02] MEDS: LEVAQUIN PREMIX IV 750 MG 750 MG/150 ML BAG IV SCH (08:27)
[2017-08-02] MEDS: PULMICORT NEB TX 0.5 MG NEB SCH ×2 (09:17→21:18)
[2017-08-02] MEDS: BROVANA IN SCH ×2 (09:17→21:17)
[2017-08-02] MEDS: XOPENEX 1.25 MG/3 ML NEBULE NEB SCH ×4 (09:17→21:17)
[2017-08-02] MEDS: ATARAX TAB 25 MG PO PRN (10:00)
[2017-08-02] MEDS: ZOCOR TAB 40 MG PO SCH (21:03)
[2017-08-03 06:23] LABS: BASOPHILS % (AUTO) 0.1 % (0.2-1.0); HEMATOCRIT 35.7 % (36.0-47.0); HEMOGLOBIN 11.9 g/dL (12.0-16.0); LYMPHOCYTES # (AUTO) 1.3 X10^3/uL (1.3-2.9); LYMPHOCYTES % (AUTO) 14.1 % (21.0-51.0); MEAN CORPUSCULAR HEMOGLOBIN 28.3 pg (27.0-34.0); MEAN CORPUSCULAR HGB CONC 33.2 g/dL (33.0-35.0); MEAN CORPUSCULAR VOLUME 85.2 fL (80.0-100.0); MEAN PLATELET VOLUME 8.8 fL (7.4-11.0); MONOCYTES # (AUTO) 0.7 x10^3/uL (0.3-0.8); MONOCYTES % (AUTO) 7.2 % (0.0-13.0); NEUTROPHILS # (AUTO) 7.2 x10^3/uL (2.2-4.8); NEUTROPHILS % (AUTO) 78.6 % (42.0-75.0); PLATELET COUNT 224 X10^3/uL (150.0-450.0); RED BLOOD COUNT 4.19 X10^6/uL (3.5-5.4); RED CELL DISTRIBUTION WIDTH 14.9 % (11.6-16.5); WHITE BLOOD COUNT 9.2 X10^3/uL (3.6-10.0)
[2017-08-03 06:39] LABS: ALANINE AMINOTRANSFERASE 16 Units/L (12-78); ALBUMIN 2.6 g/dL (3.4-5.0); ALKALINE PHOSPHATASE 71 Units/L (46-116); ASPARTATE AMINO TRANSFERASE 11 Units/L (15-37); BLOOD UREA NITROGEN 27 mg/dL (7-18); CALCIUM 9.5 mg/dL (8.5-10.1); CARBON DIOXIDE 31.9 mmol/L (21-32); CHLORIDE 109 mmol/L (98-107); COR CA(FOR HYPOALB) 10.6 mg/dL (8.5-10.1); CREATININE 1.01 mg/dL (0.55-1.02); SODIUM 145 mmol/L (136-145); TOTAL PROTEIN 5.6 g/dL (6.4-8.2); eGFR BLACK RACES > 60 (>60); eGFR NON BLACK RACES 58 (>60)
[2017-08-03] MEDS ORDERED: MILK OF MAGNESIA PO SCH (08:00)
[2017-08-03] MEDS: XOPENEX 1.25 MG/3 ML NEBULE NEB SCH ×4 (08:52→20:51)
[2017-08-03] MEDS: BROVANA IN SCH ×2 (08:52→20:51)
[2017-08-03] MEDS: PULMICORT NEB TX 0.5 MG NEB SCH ×2 (08:53→20:51)
[2017-08-03] MEDS: ASPIRIN PO SCH (08:54)
[2017-08-03] MEDS: K-DUR TAB 20 MEQ PO SCH (08:54)
[2017-08-03] MEDS: LEVAQUIN PREMIX IV 750 MG 750 MG/150 ML BAG IV SCH (08:54)
[2017-08-03] MEDS: COLACE CAP 100 MG PO SCH ×2 (08:55→21:21)
[2017-08-03] MEDS: ZESTRIL TAB 10 MG PO SCH (08:55)
[2017-08-03] MEDS: ATARAX TAB 25 MG PO PRN (08:55)
[2017-08-03] MEDS: TOPROL XL PO SCH (08:56)
[2017-08-03] MEDS: NEURONTIN CAP 100 MG PO SCH (08:56)
[2017-08-03] MEDS: CARDIZEM SR 120 MG PO SCH (08:56)
[2017-08-03] MEDS: VITAMIN B-12 PO SCH (08:56)
[2017-08-03] MEDS: LASIX PO SCH (08:56)
[2017-08-03] MEDS: ROBITUSSIN DM PO SCH ×4 (08:56→21:08)
[2017-08-03] MEDS ORDERED: NS 1/2 1000 ML IV 1,000 ML IV ONE (08:58)
[2017-08-03] MEDS: NS 1/2 1000 ML IV 1,000 ML IV SCH ×2 (09:01→13:25)
[2017-08-03] MEDS ORDERED: MILK OF MAGNESIA PO PRN (16:25)
[2017-08-03] MEDS: ZOCOR TAB 40 MG PO SCH (21:19)
[2017-08-04 05:18] LABS: ALANINE AMINOTRANSFERASE 14 Units/L (12-78); ALBUMIN 2.5 g/dL (3.4-5.0); ALKALINE PHOSPHATASE 72 Units/L (46-116); ASPARTATE AMINO TRANSFERASE 9 Units/L (15-37); BLOOD UREA NITROGEN 23 mg/dL (7-18); CALCIUM 8.9 mg/dL (8.5-10.1); CARBON DIOXIDE 32.9 mmol/L (21-32); CHLORIDE 107 mmol/L (98-107); COR CA(FOR HYPOALB) 10.1 mg/dL (8.5-10.1); CREATININE 0.96 mg/dL (0.55-1.02); SODIUM 143 mmol/L (136-145); TOTAL PROTEIN 5.4 g/dL (6.4-8.2); eGFR BLACK RACES > 60 (>60); eGFR NON BLACK RACES > 60 (>60)
[2017-08-04] MEDS: NS 1/2 1000 ML IV 1,000 ML IV SCH ×2 (05:22→18:17)
[2017-08-04 05:26] LABS: BASOPHILS % (AUTO) 0.1 % (0.2-1.0); EOSINOPHILS # (AUTO) 0.1 x10^3/uL (0.0-0.2); HEMATOCRIT 36.4 % (36.0-47.0); LYMPHOCYTES # (AUTO) 2.5 X10^3/uL (1.3-2.9); LYMPHOCYTES % (AUTO) 26.9 % (21.0-51.0); MEAN CORPUSCULAR HEMOGLOBIN 28.2 pg (27.0-34.0); MEAN CORPUSCULAR HGB CONC 32.9 g/dL (33.0-35.0); MEAN CORPUSCULAR VOLUME 85.8 fL (80.0-100.0); MEAN PLATELET VOLUME 9.1 fL (7.4-11.0); MONOCYTES # (AUTO) 0.9 x10^3/uL (0.3-0.8); MONOCYTES % (AUTO) 9.6 % (0.0-13.0); NEUTROPHILS # (AUTO) 5.8 x10^3/uL (2.2-4.8); NEUTROPHILS % (AUTO) 62.4 % (42.0-75.0); PLATELET COUNT 211 X10^3/uL (150.0-450.0); RED BLOOD COUNT 4.24 X10^6/uL (3.5-5.4); WHITE BLOOD COUNT 9.3 X10^3/uL (3.6-10.0)
[2017-08-04] MEDS: COLACE CAP 100 MG PO SCH ×2 (09:01→22:13)
[2017-08-04] MEDS: ASPIRIN PO SCH (09:01)
[2017-08-04] MEDS: CARDIZEM SR 120 MG PO SCH (09:02)
[2017-08-04] MEDS: LASIX PO SCH (09:06)
[2017-08-04] MEDS: NEURONTIN CAP 100 MG PO SCH (09:06)
[2017-08-04] MEDS: LEVAQUIN PREMIX IV 750 MG 750 MG/150 ML BAG IV SCH (09:06)
[2017-08-04] MEDS: K-DUR TAB 20 MEQ PO SCH (09:06)
[2017-08-04] MEDS: TOPROL XL PO SCH (09:07)
[2017-08-04] MEDS: VITAMIN B-12 PO SCH (09:07)
[2017-08-04] MEDS: ZESTRIL TAB 10 MG PO SCH (09:07)
[2017-08-04] MEDS: ROBITUSSIN DM PO SCH ×4 (09:07→20:50)
[2017-08-04] MEDS: PULMICORT NEB TX 0.5 MG NEB SCH ×2 (09:24→20:54)
[2017-08-04] MEDS: BROVANA IN SCH ×2 (09:25→20:55)
[2017-08-04] MEDS: XOPENEX 1.25 MG/3 ML NEBULE NEB SCH ×4 (09:27→20:54)
--- NOTE | 2017-08-04 10:49 | RAD ---
Examination: Portable AP chest History: COPD, asthma and hypertension Comparison reference: July 31, 2017 Findings: Continued normal heart size with essentially clear lungs and pleural spaces. Stable positio n of injection port in the SVC. Impression: No interval change or acute abnormality demonstrated. Reported By:
--- NOTE | 2017-08-04 12:43 | PCM.PROG ---
Progress Note - Progress Note for Day of Date: 08/04/17 - Subjective Subjective: CONTINUED CO COUGH AND WHEEZING - Past Medical Family Social History Past Med/Fam/Surg Hx: No changes since H&P Allergies: Allergies azithromycin [From Zithromax] Allergy (Verified 04/22/17 00:54) morphine Allergy (Verified 04/22/17 00:54) nitrofurantoin [From Macrodantin] Allergy (Verified 04/22/17 00:54) Sulfa (Sulfonamide Antibiotics) [SULFA] Allergy (Verified 04/22/17 00:54) - Review of Systems ROS: No change since H&P - Vital Signs and I&O's Vital Signs: Temperature 97.9 F Pulse Rate [Left Brachial] 79 Pulse Rate [Right Brachial] 70 Pulse Rate 86 Respiratory Rate 20 Blood Pressure [Left Arm] 117/71 Blood Pressure [Right Arm] 109/50 Blood Pressure 141/62 O2 Sat by Pulse Oximetry 100 Intake and Output: Intake & Output 08/02/17 08/03/17 08/04/17 08/05/17 12:59 11:59 11:59 11:59 Intake Total 1670 Balance 1670 - Physical Exam Oriented: Normal Eyes: Normal Ear: Normal Nose: Normal Throat: Normal Respiratory: Wheezes (MILD LOWER EXP WHEEZES) Cardiovascular: Normal : Normal Auscultation: Bowel Sounds: Normal Tenderness: Normal Skin: Normal Musculoskeletal: Back:Lumbar Psychiatric: Normal Mood Description: Calm Speech Pattern: Clear, Appropriate - Laboratory and Diagnostics Result Diagrams: 08/04/17 04:30 08/04/17 04:30 Labs: 07/31/17 16:10 Blood Blood Culture - Preliminary 07/31/17 16:00 Blood Blood Culture - Preliminary Laboratory WBC 9.3 X10^3/uL (3.6-10.0) 08/04/17 04:30 RBC 4.24 X10^6/uL (3.5-5.4) 08/04/17 04:30 Hgb 12.0 g/dL (12.0-16.0) 08/04/17 04:30 Hct 36.4 % (36.0-47.0) 08/04/17 04:30 MCV 85.8 fL (80.0-100.0) 08/04/17 04:30 MCH 28.2 pg (27.0-34.0) 08/04/17 04:30 MCHC 32.9 g/dL (33.0-35.0) L 08/04/17 04:30 RDW 15.0 % (11.6-16.5) 08/04/17 04:30 Plt Count 211 X10^3/uL (150.0-450.0) 08/04/17 04:30 Plt Count Comment Adequate (ADEQUATE) 08/01/17 04:32 MPV 9.1 fL (7.4-11.0) 08/04/17 04:30 Neut % 62.4 % (42.0-75.0) 08/04/17 04:30 Lymph % 26.9 % (21.0-51.0) 08/04/17 04:30 [place] % 9.6 % (0.0-13.0) 08/04/17 04:30 Eos % 1.0 % (0.9-2.9) 08/04/17 04:30 Baso % 0.1 % (0.2-1.0) L 08/04/17 04:30 Neut # 5.8 x10^3/uL (2.2-4.8) H 08/04/17 04:30 Lymph # 2.5 X10^3/uL (1.3-2.9) 08/04/17 04:30 [place] # 0.9 x10^3/uL (0.3-0.8) H 08/04/17 04:30 Eos # 0.1 x10^3/uL (0.0-0.2) 08/04/17 04:30 Baso # 0.0 X10^3/uL (0.0-0.1) 08/04/17 04:30 Absolute Nucleated RBC 0.1 /100WBC 08/04/17 04:30 Total Counted 100 08/01/17 04:32 Neutrophils % (Manual) 94 % (39-76) H 08/01/17 04:32 Lymphocytes % (Manual) 5 % (13-43) L 08/01/17 04:32 Monocytes % (Manual) 1 % (4-9) L 08/01/17 04:32 Plt Morphology Comment Normal (NORMAL) 08/01/17 04:32 RBC Morphology Normal (NORMAL) 08/01/17 04:32 Sodium 143 mmol/L (136-145) 08/04/17 04:30 Corrected Sodium TNP 08/04/17 04:30 Potassium 3.8 mmol/L (3.5-5.1) 08/04/17 04:30 Chloride 107 mmol/L (98-107) 08/04/17 04:30 Carbon Dioxide 32.9 mmol/L (21-32) H 08/04/17 04:30 BUN 23 mg/dL (7-18) H 08/04/17 04:30 Creatinine 0.96 mg/dL (0.55-1.02) 08/04/17 04:30 Est GFR (MDRD) Af Amer > 60 (>60) 08/04/17 04:30 Est GFR (MDRD) Non-Af > 60 (>60) 08/04/17 04:30 Glucose 78 mg/dL (65-99) 08/04/17 04:30 Calcium 8.9 mg/dL (8.5-10.1) 08/04/17 04:30 Corrected Calcium 10.1 mg/dL (8.5-10.1) 08/04/17 04:30 Total Bilirubin 0.30 mg/dL (0.2-1.0) 08/04/17 04:30 AST 9 Units/L (15-37) L 08/04/17 04:30 ALT 14 Units/L (12-78) 08/04/17 04:30 Alkaline Phosphatase 72 Units/L (46-116) 08/04/17 04:30 Total Protein 5.4 g/dL (6.4-8.2) L 08/04/17 04:30 Albumin 2.5 g/dL (3.4-5.0) L 08/04/17 04:30 Globulin 2.9 g/dL (2.5-4.5) 08/04/17 04:30 Albumin/Globulin Ratio 0.9 Ratio (1.1-2.1) L 08/04/17 04:30 - Plan (1) Acute bronchitis Status: Acute Plan: RESP THERAPY, SUPPLEMENTAL O2. IV ATBX, REPEAT IV SOLU MEDROL 40MG IV X 3 DOSES. ADMISSION LABS, CBC CMP UA CHEST XRAY. RESUME HOME MEDS (2) CAD (coronary artery disease) Status: Chronic (3) Hyperlipidemia Status: Chronic (4) Hypertension Status: Chronic
[2017-08-04] MEDS ORDERED: SOLU-Medrol 40 MG VIAL IVP SCH (13:00)
[2017-08-04] MEDS: PERCOCET TAB 5/325 MG PO PRN (14:50)
[2017-08-04] MEDS: ZOCOR TAB 40 MG PO SCH (20:50)
[2017-08-04] MEDS: ATARAX TAB 25 MG PO PRN (20:59)
[2017-08-04] MEDS: SOLU-Medrol 40 MG VIAL IVP SCH (22:13)
[2017-08-05] MEDS: SOLU-Medrol 40 MG VIAL IVP SCH ×3 (05:20→21:14)
[2017-08-05 06:18] LABS: BASOPHILS % (AUTO) 0 % (0.2-1.0); HEMATOCRIT 37.7 % (36.0-47.0); HEMOGLOBIN 12.2 g/dL (12.0-16.0); LYMPHOCYTES # (AUTO) 0.7 X10^3/uL (1.3-2.9); MEAN CORPUSCULAR HEMOGLOBIN 27.7 pg (27.0-34.0); MEAN CORPUSCULAR HGB CONC 32.4 g/dL (33.0-35.0); MEAN CORPUSCULAR VOLUME 85.4 fL (80.0-100.0); MEAN PLATELET VOLUME 9.1 fL (7.4-11.0); MONOCYTES # (AUTO) 0.1 x10^3/uL (0.3-0.8); NEUTROPHILS # (AUTO) 10.3 x10^3/uL (2.2-4.8); PLATELET COUNT 226 X10^3/uL (150.0-450.0); RED BLOOD COUNT 4.42 X10^6/uL (3.5-5.4); RED CELL DISTRIBUTION WIDTH 14.9 % (11.6-16.5)
[2017-08-05 06:22] LABS: ALANINE AMINOTRANSFERASE 16 Units/L (12-78); ALBUMIN 2.6 g/dL (3.4-5.0); ALKALINE PHOSPHATASE 79 Units/L (46-116); ASPARTATE AMINO TRANSFERASE 10 Units/L (15-37); BLOOD UREA NITROGEN 22 mg/dL (7-18); CALCIUM 9.3 mg/dL (8.5-10.1); CARBON DIOXIDE 30.6 mmol/L (21-32); CHLORIDE 104 mmol/L (98-107); COR CA(FOR HYPOALB) 10.4 mg/dL (8.5-10.1); COR NA(FOR HYPERGLY) 143 mmol/L (136-145); CREATININE 0.98 mg/dL (0.55-1.02); SODIUM 141 mmol/L (136-145); eGFR BLACK RACES > 60 (>60); eGFR NON BLACK RACES > 60 (>60)
[2017-08-05 06:58] LABS: BAND NEUTROPHILS % 1 % (0-10); PLATELET MORPHOLOGY COMMENT NORMAL (NORMAL)
[2017-08-05] MEDS: COLACE CAP 100 MG PO SCH ×2 (07:26→21:13)
[2017-08-05] MEDS: NS 1/2 1000 ML IV 1,000 ML IV SCH ×2 (07:27→13:41)
[2017-08-05] MEDS: LASIX PO SCH (08:09)
[2017-08-05] MEDS: K-DUR TAB 20 MEQ PO SCH (08:09)
[2017-08-05] MEDS: ASPIRIN PO SCH (08:09)
[2017-08-05] MEDS: LEVAQUIN PREMIX IV 750 MG 750 MG/150 ML BAG IV SCH (08:09)
[2017-08-05] MEDS: CARDIZEM SR 120 MG PO SCH (08:09)
[2017-08-05] MEDS: VITAMIN B-12 PO SCH (08:10)
[2017-08-05] MEDS: NEURONTIN CAP 100 MG PO SCH (08:10)
[2017-08-05] MEDS: ROBITUSSIN DM PO SCH ×4 (08:10→21:13)
[2017-08-05] MEDS: ZESTRIL TAB 10 MG PO SCH (08:10)
[2017-08-05] MEDS: TOPROL XL PO SCH (08:10)
[2017-08-05] MEDS: PULMICORT NEB TX 0.5 MG NEB SCH ×2 (09:35→20:58)
[2017-08-05] MEDS: XOPENEX 1.25 MG/3 ML NEBULE NEB SCH ×4 (09:36→20:59)
[2017-08-05] MEDS: BROVANA IN SCH ×2 (09:36→21:02)
[2017-08-05] MEDS ORDERED: NS 1/2 1000 ML IV 1,000 ML IV ONE (13:38)
[2017-08-05] MEDS: ZOCOR TAB 40 MG PO SCH (21:14)
[2017-08-06] MEDS: NS 1/2 1000 ML IV 1,000 ML IV SCH (02:09)
[2017-08-06 05:12] LABS: ALANINE AMINOTRANSFERASE 17 Units/L (12-78); ALBUMIN 2.6 g/dL (3.4-5.0); ALKALINE PHOSPHATASE 76 Units/L (46-116); ASPARTATE AMINO TRANSFERASE 10 Units/L (15-37); BLOOD UREA NITROGEN 25 mg/dL (7-18); CALCIUM 9.6 mg/dL (8.5-10.1); CHLORIDE 104 mmol/L (98-107); COR CA(FOR HYPOALB) 10.7 mg/dL (8.5-10.1); COR NA(FOR HYPERGLY) 142 mmol/L (136-145); CREATININE 0.97 mg/dL (0.55-1.02); SODIUM 140 mmol/L (136-145); eGFR BLACK RACES > 60 (>60); eGFR NON BLACK RACES > 60 (>60)
[2017-08-06 05:20] LABS: BASOPHILS % (AUTO) 0.1 % (0.2-1.0); HEMATOCRIT 37.4 % (36.0-47.0); HEMOGLOBIN 12.5 g/dL (12.0-16.0); LYMPHOCYTES # (AUTO) 0.7 X10^3/uL (1.3-2.9); LYMPHOCYTES % (AUTO) 5.9 % (21.0-51.0); MEAN CORPUSCULAR HEMOGLOBIN 28.5 pg (27.0-34.0); MEAN CORPUSCULAR HGB CONC 33.4 g/dL (33.0-35.0); MEAN CORPUSCULAR VOLUME 85.4 fL (80.0-100.0); MONOCYTES # (AUTO) 0.2 x10^3/uL (0.3-0.8); MONOCYTES % (AUTO) 1.6 % (0.0-13.0); NEUTROPHILS # (AUTO) 10.8 x10^3/uL (2.2-4.8); NEUTROPHILS % (AUTO) 92.4 % (42.0-75.0); PLATELET COUNT 240 X10^3/uL (150.0-450.0); RED BLOOD COUNT 4.38 X10^6/uL (3.5-5.4); WHITE BLOOD COUNT 11.6 X10^3/uL (3.6-10.0)
[2017-08-06] MEDS: SOLU-Medrol 40 MG VIAL IVP SCH (05:27)
[2017-08-06 05:49] LABS: PLATELET MORPHOLOGY COMMENT NORMAL (NORMAL)
[2017-08-06] MEDS: LEVAQUIN PREMIX IV 750 MG 750 MG/150 ML BAG IV SCH (08:42)
[2017-08-06] MEDS: ASPIRIN PO SCH (08:43)
[2017-08-06] MEDS: K-DUR TAB 20 MEQ PO SCH (08:43)
[2017-08-06] MEDS: COLACE CAP 100 MG PO SCH (08:44)
[2017-08-06] MEDS: VITAMIN B-12 PO SCH (08:44)
[2017-08-06] MEDS: LASIX PO SCH (08:44)
[2017-08-06] MEDS: TOPROL XL PO SCH (08:44)
[2017-08-06] MEDS: ZESTRIL TAB 10 MG PO SCH (08:44)
[2017-08-06] MEDS: CARDIZEM SR 120 MG PO SCH (08:44)
[2017-08-06] MEDS: NEURONTIN CAP 100 MG PO SCH (08:44)
[2017-08-06] MEDS: ROBITUSSIN DM PO SCH (08:45)
[2017-08-06] MEDS: PULMICORT NEB TX 0.5 MG NEB SCH (08:45)
[2017-08-06] MEDS: BROVANA IN SCH (08:46)
[2017-08-06] MEDS: XOPENEX 1.25 MG/3 ML NEBULE NEB SCH ×2 (08:49→08:50)
[2017-08-06] MEDS: ATARAX TAB 25 MG PO PRN (09:28)
[2017-08-06 12:29] VITALS: BP 149/70
== END 2017-08-06 14:00 | disposition home or self-care (01) | DRG 203 ==
LOC: MED/SURG 14:38
PROVIDERS: ADMIT Internal Medicine; ATTEND Internal Medicine
DX: J20.8 Acute bronchitis due to other specified organisms (principal); J44.9 Chronic obstructive pulmonary disease, unspecified; R06.02 Shortness of breath; I25.10 Atherosclerotic heart disease of native coronary artery without angina pectoris; E78.2 Mixed hyperlipidemia; I10 Essential (primary) hypertension; I50.9 Heart failure, unspecified
CPT/HCPCS: 36415; 71010; 71020; 80053; 85025; 87040; 94640; 94760; A4222; J1956; J2920; J2930; J7626

== ENCOUNTER 2017-08-12 09:38 | Inpatient (IN) | payer OTHER, MEDICAID ==
[2017-08-12] MEDS ORDERED: PULMICORT NEB TX 0.5 MG NEB SCH (10:45)
--- NOTE | 2017-08-12 10:45 | DR.H&P ---
H&P - History & Physical for Day of: H&P Date: 08/12/17 - Chief Complaint Chief Complaint: CHEST PAIN, SOB - Allergies Allergies/Adverse Reactions: Allergies Allergy/AdvReac Type Severity Reaction Status Date / Time azithromycin [From Zithromax] Allergy Verified 08/12/17 10:25 morphine Allergy Verified 08/12/17 10:25 nitrofurantoin Allergy Verified 08/12/17 10:25 [From Macrodantin] Sulfa (Sulfonamide Allergy Verified 08/12/17 10:25 Antibiotics) [SULFA] - History of Present Illness History of Present Illness: the patient is a 67-year-old white female who was a direct admit from Dr. Cochran's office after presenting this morning with complaints of chest pain and shortness of breath. Patient has recently been treated inpatient with acute bronchitis with a follow-up last Friday. Patient continued to complain of cough and denied any fever nausea and vomiting. Patient states this a.m. she is weak patient is shaking all over, low-grade fever and office and O2 saturation around 90. Patient does have a history of coronary artery disease and is under the care at [facility]. Plan to admit patient for further evaluation of chest pain and shortness of breath, will consult respiratory, ABG on admission, serial cardiac enzymes and EKGs. - Past Medical History Past Medical History: Angina, Arthritis, Asthma, COPD, Dyslipidemia, Hypertension, Sleep Apnea - Past Surgical History Surgical History: , Cholecystectomy, Ortho Surgery, Other - Family History Family Medical History: Diabetes Mellitus, [place], Hypertension - Social History Does patient currently use any type of tobacco product: No Have you used tobacco products in the last 12 months: No Type of Tobacco Use: None Does any household member use tobacco: No Alcohol Use: None Drug Use: None - Review of Systems Constitutional: Fever, Chills, Weakness, Malaise Eyes: No Symptoms Reported ENT: No Symptoms Reported Respiratory: Cough, Shortness of Breath, Wheezing Cardiovascular: Chest Pain Gastrointestinal: Nausea Genitourinary: No Symptoms Reported Musculoskeletal: Back Pain, Leg Pain Skin: No Symptoms Reported Neurological: Weakness - Physical Exam Vital Signs: Blood Pressure [Left Arm] 149/70 Blood Pressure [Right Arm] 115/55 Blood Pressure 149/70 Oriented: Normal Eyes: Normal Nose: Normal Throat: Red Respiratory: Wheezes Throughout, RLL Diminished, LLL Diminished Cardiovascular: Tachycardia : Normal Auscultation: Bowel Sounds: Normal Palpation: Normal Tenderness: Normal Skin: Decreased [place] Musculoskeletal: Knee, Back:Thoracic, Back:Lumbar Psychiatric: Anxiety Affect: Anxious Speech Pattern: Clear - Assessment/Plan (1) Chest pain Status: Acute Plan: admit patient, serial cardiac enzymes and EKGs, chest x-ray on admission an ABG, respiratory consult, start on IV steroids as well as IV antibiotics, respiratory therapy and supplemental O2, blood pressure and cardiac monitoring (2) SOB (shortness of breath) Status: Acute (3) Acute bronchitis with chronic obstructive pulmonary disease (COPD) Status: Acute (4) CAD (coronary artery disease) Status: Chronic (5) COPD (chronic obstructive pulmonary disease) Qualifiers: Status: Chronic (6) Hypertension Status: Chronic
--- NOTE | 2017-08-12 11:37 | RAD ---
History: Chest pain Study: Portable upright AP chest Comparison: August 04 Findings: There is new focal subsegmental density at the right lung base. The left lung is grossly cl ear and the heart size is prominent. There is unchanged right subclavian Port-A-Cath. There is no obv ious pleural effusion. Impression: New subsegmental atelectasis or pneumonia at the right lung base Reported By:
[2017-08-12 11:54] LABS: ABG BASE EXCESS 8.5 mmol/L (-2.0-2.0); ABG HCO3 32.8 mmol/L (22-26)
[2017-08-12 12:07] LABS: BASOPHILS # (AUTO) 0.1 X10^3/uL (0.0-0.1); BASOPHILS % (AUTO) 0.3 % (0.2-1.0); EOSINOPHILS % (AUTO) 0.2 % (0.9-2.9); HEMATOCRIT 41.4 % (36.0-47.0); HEMOGLOBIN 13.5 g/dL (12.0-16.0); LYMPHOCYTES # (AUTO) 1.3 X10^3/uL (1.3-2.9); LYMPHOCYTES % (AUTO) 7.1 % (21.0-51.0); MEAN CORPUSCULAR HEMOGLOBIN 27.8 pg (27.0-34.0); MEAN CORPUSCULAR HGB CONC 32.5 g/dL (33.0-35.0); MEAN CORPUSCULAR VOLUME 85.3 fL (80.0-100.0); MEAN PLATELET VOLUME 8.7 fL (7.4-11.0); MONOCYTES # (AUTO) 0.8 x10^3/uL (0.3-0.8); MONOCYTES % (AUTO) 4.2 % (0.0-13.0); NEUTROPHILS # (AUTO) 15.8 x10^3/uL (2.2-4.8); NEUTROPHILS % (AUTO) 88.2 % (42.0-75.0); PLATELET COUNT 210 X10^3/uL (150.0-450.0); RED BLOOD COUNT 4.85 X10^6/uL (3.5-5.4); RED CELL DISTRIBUTION WIDTH 15.4 % (11.6-16.5); WHITE BLOOD COUNT 17.9 X10^3/uL (3.6-10.0)
[2017-08-12 12:20] LABS: ALANINE AMINOTRANSFERASE 20 Units/L (12-78); ALBUMIN 2.9 g/dL (3.4-5.0); ALKALINE PHOSPHATASE 73 Units/L (46-116); ASPARTATE AMINO TRANSFERASE 13 Units/L (15-37); BLOOD UREA NITROGEN 19 mg/dL (7-18); CALCIUM 9.1 mg/dL (8.5-10.1); CARBON DIOXIDE 30.2 mmol/L (21-32); CHLORIDE 101 mmol/L (98-107); CREATININE 0.91 mg/dL (0.55-1.02); MAGNESIUM 1.8 mg/dL (1.7-2.9); SODIUM 139 mmol/L (136-145); TOTAL PROTEIN 6.2 g/dL (6.4-8.2); eGFR BLACK RACES > 60 (>60); eGFR NON BLACK RACES > 60 (>60)
[2017-08-12 12:32] VITALS: BMI 49.4
[2017-08-12 12:38] LABS: CKMB % 3.5 % (<4); CREATINE KINASE 29 Units/L (26-192); CREATINE KINASE MB < 1.0 ng/mL (0-4.0); TROPONIN I < 0.02 ng/mL (0-1.5)
[2017-08-12] MEDS ORDERED: NS 500 ML IV 500 ML IV ONE (14:38)
[2017-08-12] MEDS: ZOSYN VIAL 4.5 GM 4.5 GM in NS 100 ML IV + SPIKE MINIBAG* 100 ML IV SCH ×2 (14:45→21:01)
[2017-08-12] MEDS: ZOFRAN INJ 4 MG VIAL IVP PRN (14:46)
[2017-08-12] MEDS: NS 500 ML IV 500 ML IV PRN (14:47)
[2017-08-12] MEDS: SOLU-Medrol 125 MG VIAL IVP SCH ×2 (14:47→21:02)
[2017-08-12] MEDS: TUSSIONEX PENNKINETIC SUSP PO SCH (14:53)
[2017-08-12] MEDS: PERCOCET TAB 5/325 MG PO PRN (14:55)
[2017-08-12 15:00] LABS: BILIRUBIN,URINE NEGATIVE (NEGATIVE); BLOOD/HEMOGLOBIN,URINE 1+ (NEGATIVE); GLUCOSE, URINE NEGATIVE (NEGATIVE); KETONES,URINE NEGATIVE (NEGATIVE); LEUKOCYTE ESTERASE ,URINE NEGATIVE (NEGATIVE); NITRITES,URINE NEGATIVE (NEGATIVE); PROTEIN,URINE NEGATIVE (NEGATIVE); UROBILINOGEN,URINE NORMAL (NORMAL)
[2017-08-12 15:02] LABS: COLOR,URINE YELLOW (YELLOW)
[2017-08-12 15:03] LABS: APPEARANCE,URINE CLEAR (CLEAR)
[2017-08-12 15:06] LABS: BACTERIA,URINE NEGATIVE /HPF (NEGATIVE); RBC,URINE RARE /HPF (NEGATIVE); SQUAMOUS EPITHELIAL CELL,UR RARE /HPF (NEGATIVE)
[2017-08-12] MEDS: XOPENEX 1.25 MG/3 ML NEBULE NEB SCH ×2 (16:08→20:59)
[2017-08-12 17:47] LABS: CREATINE KINASE 25 Units/L (26-192); CREATINE KINASE MB < 1.0 ng/mL (0-4.0); TROPONIN I < 0.02 ng/mL (0-1.5)
[2017-08-12] MEDS: PULMICORT NEB TX 0.5 MG NEB SCH (20:59)
[2017-08-12] MEDS: BROVANA IN SCH (21:00)
[2017-08-12 23:18] LABS: CKMB % 2.1 % (<4); CREATINE KINASE 48 Units/L (26-192); CREATINE KINASE MB < 1.0 ng/mL (0-4.0); TROPONIN I < 0.02 ng/mL (0-1.5)
[2017-08-13] MEDS: ATARAX TAB 25 MG PO PRN ×2 (00:08→12:19)
[2017-08-13] MEDS: TUSSIONEX PENNKINETIC SUSP PO SCH ×2 (00:08→12:32)
[2017-08-13] MEDS: SOLU-Medrol 125 MG VIAL IVP SCH ×3 (05:55→21:01)
[2017-08-13] MEDS: ZOSYN VIAL 4.5 GM 4.5 GM in NS 100 ML IV + SPIKE MINIBAG* 100 ML IV SCH ×3 (05:56→21:17)
[2017-08-13 06:06] LABS: BASOPHILS % (AUTO) 0.2 % (0.2-1.0); HEMATOCRIT 38.3 % (36.0-47.0); HEMOGLOBIN 12.5 g/dL (12.0-16.0); LYMPHOCYTES # (AUTO) 0.6 X10^3/uL (1.3-2.9); LYMPHOCYTES % (AUTO) 2.5 % (21.0-51.0); MEAN CORPUSCULAR HEMOGLOBIN 27.7 pg (27.0-34.0); MEAN CORPUSCULAR HGB CONC 32.6 g/dL (33.0-35.0); MEAN CORPUSCULAR VOLUME 85.1 fL (80.0-100.0); MEAN PLATELET VOLUME 8.6 fL (7.4-11.0); MONOCYTES # (AUTO) 0.4 x10^3/uL (0.3-0.8); MONOCYTES % (AUTO) 1.5 % (0.0-13.0); NEUTROPHILS # (AUTO) 23.2 x10^3/uL (2.2-4.8); NEUTROPHILS % (AUTO) 95.8 % (42.0-75.0); PLATELET COUNT 184 X10^3/uL (150.0-450.0); RED CELL DISTRIBUTION WIDTH 15.3 % (11.6-16.5); WHITE BLOOD COUNT 24.2 X10^3/uL (3.6-10.0)
[2017-08-13 06:14] LABS: ALBUMIN 2.4 g/dL (3.4-5.0); CALCIUM 9.2 mg/dL (8.5-10.1); CARBON DIOXIDE 31.7 mmol/L (21-32); COR CA(FOR HYPOALB) 10.5 mg/dL (8.5-10.1); CREATININE 1.26 mg/dL (0.55-1.02)
[2017-08-13 06:57] LABS: BAND NEUTROPHILS % 5 % (0-10); PLATELET MORPHOLOGY COMMENT NORMAL (NORMAL)
[2017-08-13] MEDS: XOPENEX 1.25 MG/3 ML NEBULE NEB SCH ×4 (08:58→20:28)
[2017-08-13] MEDS: PULMICORT NEB TX 0.5 MG NEB SCH ×2 (09:00→20:28)
[2017-08-13] MEDS: BROVANA IN SCH ×2 (09:00→20:27)
[2017-08-13] MEDS ORDERED: OXYCODONE HCL PO PRN (12:23)
[2017-08-13] MEDS ORDERED: ACETAMINOPHEN PO PRN (12:23)
[2017-08-13] MEDS ORDERED: [UNRECOGNIZED DRUG - OTHER] PO PRN (12:23)
[2017-08-13] MEDS ORDERED: MUCOMYST (RESPIRATORY USE ONLY) NEB SCH (12:45)
--- NOTE | 2017-08-13 13:46 | PCM.PROG ---
Progress Note - Progress Note for Day of Date: 08/13/17 - Subjective Subjective: patient is a 67-year-old white female who was admitted 1 day ago with complaints of chest pain cough cold and congestion. Patient was previously treated inpatient for COPD exacerbation with acute bronchitis. Post hospital discharge patient had complaints of chest pain. Patient had serial cardiac enzymes and EKGs which were stable this morning on exam patient has diffuse rhonchi as well as productive cough. We will continue IV antibiotic therapy as well as respiratory care. We'll order repeat blood and sputum cultures on admission which are currently pending. - Past Medical Family Social History Past Med/Fam/Surg Hx: No changes since H&P Allergies: Allergies azithromycin [From Zithromax] Allergy (Verified 08/12/17 10:25) morphine Allergy (Verified 08/12/17 10:25) nitrofurantoin [From Macrodantin] Allergy (Verified 08/12/17 10:25) Sulfa (Sulfonamide Antibiotics) [SULFA] Allergy (Verified 08/12/17 10:25) - Review of Systems ROS: No change since H&P - Vital Signs and I&O's Vital Signs: Temperature 97.3 F Pulse Rate [Left Brachial] 77 Pulse Rate [Right Brachial] 92 Pulse Rate 96 Respiratory Rate 20 Blood Pressure [Left Arm] 133/64 Blood Pressure [Right Arm] 136/61 Blood Pressure 149/70 O2 Sat by Pulse Oximetry 97 Intake and Output: Intake & Output 08/11/17 08/12/17 08/13/17 08/14/17 11:59 11:59 11:59 11:59 Intake Total 1262 Balance 1262 - Physical Exam Oriented: Normal Eyes: Normal Nose: Normal Throat: Red Respiratory: Wheezes, Rhonchi Cardiovascular: Tachycardia : Normal Auscultation: Bowel Sounds: Normal Tenderness: Normal Skin: Decreased [place]urgur Musculoskeletal: Knee, Back:Thoracic, Back:Lumbar Psychiatric: Anxiety Affect: Anxious Speech Pattern: Clear, Appropriate - Laboratory and Diagnostics Result Diagrams: 08/13/17 05:20 08/13/17 05:20 Labs: 08/12/17 15:10 Sputum - Expectorated Sputum Sputum Culture - Preliminary 08/12/17 15:10 Sputum - Expectorated Sputum - Final Laboratory WBC 24.2 X10^3/uL (3.6-10.0) H 08/13/17 05:20 RBC 4.50 X10^6/uL (3.5-5.4) 08/13/17 05:20 Hgb 12.5 g/dL (12.0-16.0) 08/13/17 05:20 Hct 38.3 % (36.0-47.0) 08/13/17 05:20 MCV 85.1 fL (80.0-100.0) 08/13/17 05:20 MCH 27.7 pg (27.0-34.0) 08/13/17 05:20 MCHC 32.6 g/dL (33.0-35.0) L 08/13/17 05:20 RDW 15.3 % (11.6-16.5) 08/13/17 05:20 Plt Count 184 X10^3/uL (150.0-450.0) 08/13/17 05:20 Plt Count Comment Adequate (ADEQUATE) 08/13/17 05:20 MPV 8.6 fL (7.4-11.0) 08/13/17 05:20 Neut % 95.8 % (42.0-75.0) H 08/13/17 05:20 Lymph % 2.5 % (21.0-51.0) L 08/13/17 05:20 [place] % 1.5 % (0.0-13.0) 08/13/17 05:20 Eos % 0.0 % (0.9-2.9) L 08/13/17 05:20 Baso % 0.2 % (0.2-1.0) 08/13/17 05:20 Neut # 23.2 x10^3/uL (2.2-4.8) H 08/13/17 05:20 Lymph # 0.6 X10^3/uL (1.3-2.9) L 08/13/17 05:20 [place] # 0.4 x10^3/uL (0.3-0.8) 08/13/17 05:20 Eos # 0.0 x10^3/uL (0.0-0.2) 08/13/17 05:20 Baso # 0.0 X10^3/uL (0.0-0.1) 08/13/17 05:20 Absolute Nucleated RBC 0.0 /100WBC 08/13/17 05:20 Total Counted 100 08/13/17 05:20 Neutrophils % (Manual) 89 % (39-76) H 08/13/17 05:20 Band Neutrophils % 5 % (0-10) 08/13/17 05:20 Lymphocytes % (Manual) 4 % (13-43) L 08/13/17 05:20 Monocytes % (Manual) 2 % (4-9) L 08/13/17 05:20 Plt Morphology Comment Normal (NORMAL) 08/13/17 05:20 RBC Morphology Normal (NORMAL) 08/13/17 05:20 INR Target Range - 08/12/17 11:40 INR 0.90 (0.8-1.3) 08/12/17 11:40 PTT 21.3 SECONDS (22.9-36.5) L 08/12/17 11:40 PTT Comment - 08/12/17 11:40 Sample Site Left brachial 08/12/17 11:38 ABG pH 7.490 (7.35-7.45) H 08/12/17 11:38 ABG pCO2 43.0 mmHg (35.0-45.0) 08/12/17 11:38 ABG pO2 66.0 mmHg (80.0-100.0) L 08/12/17 11:38 ABG HCO3 32.8 mmol/L (22-26) H* 08/12/17 11:38 ABG O2 Saturation 94.0 % (90-100) 08/12/17 11:38 ABG Base Excess 8.5 mmol/L (-2.0-2.0) H 08/12/17 11:38 Pete Test Na 08/12/17 11:38 A-a Gradient 94.0 mmHg 08/12/17 11:38 FiO2 30.000 08/12/17 11:38 Blood Gas Comments [place] well aw 08/12/17 11:38 Sodium 141 mmol/L (136-145) 08/13/17 05:20 Corrected Sodium 142 mmol/L (136-145) 08/13/17 05:20 Potassium 4.1 mmol/L (3.5-5.1) 08/13/17 05:20 Chloride 103 mmol/L (98-107) 08/13/17 05:20 Carbon Dioxide 31.7 mmol/L (21-32) 08/13/17 05:20 BUN 24 mg/dL (7-18) H 08/13/17 05:20 Creatinine 1.26 mg/dL (0.55-1.02) H 08/13/17 05:20 Est GFR (MDRD) Af Amer 55 (>60) L 08/13/17 05:20 Est GFR (MDRD) Non-Af 45 (>60) L 08/13/17 05:20 Glucose 158 mg/dL (65-99) H 08/13/17 05:20 Calcium 9.2 mg/dL (8.5-10.1) 08/13/17 05:20 Corrected Calcium 10.5 mg/dL (8.5-10.1) H 08/13/17 05:20 Magnesium 1.8 mg/dL (1.7-2.9) 08/12/17 11:35 Total Bilirubin 0.80 mg/dL (0.2-1.0) 08/13/17 05:20 AST 20 Units/L (15-37) 08/13/17 05:20 ALT 32 Units/L (12-78) 08/13/17 05:20 Alkaline Phosphatase 69 Units/L (46-116) 08/13/17 05:20 Creatine Kinase 48 Units/L (26-192) 08/12/17 22:45 CK-MB (CK-2) < 1.0 ng/mL (0-4.0) 08/12/17 22:45 CK/CKMB % Calc 2.1 % (<4) 08/12/17 22:45 Troponin I < 0.02 ng/mL (0-1.5) 08/12/17 22:45 Total Protein 6.0 g/dL (6.4-8.2) L 08/13/17 05:20 Albumin 2.4 g/dL (3.4-5.0) L 08/13/17 05:20 Globulin 3.6 g/dL (2.5-4.5) 08/13/17 05:20 Albumin/Globulin Ratio 0.7 Ratio (1.1-2.1) L 08/13/17 05:20 Triglycerides 61 mg/dL (0-150) 08/13/17 05:20 Cholesterol 164 mg/dL (0-200) 08/13/17 05:20 LDL Cholesterol, Calc 70 mg/dL (0-100) 08/13/17 05:20 HDL Cholesterol 82 mg/dL (40-60) H 08/13/17 05:20 Cholesterol/HDL Ratio 2.0 (0.0-5.0) 08/13/17 05:20 Specimen Type Clean catch urine 08/12/17 14:48 Urine Color Yellow (YELLOW) 08/12/17 14:48 Urine Appearance Clear (CLEAR) 08/12/17 14:48 Urine pH 7.0 (5.0 - 8.0) 08/12/17 14:48 Ur Specific [place] 1.015 (1.000-1.030) 08/12/17 14:48 Urine Protein Negative (NEGATIVE) 08/12/17 14:48 Urine Glucose (UA) Negative (NEGATIVE) 08/12/17 14:48 Urine Ketones Negative (NEGATIVE) 08/12/17 14:48 Urine Occult Blood 1+ (NEGATIVE) 08/12/17 14:48 Urine Nitrite Negative (NEGATIVE) 08/12/17 14:48 Urine Bilirubin Negative (NEGATIVE) 08/12/17 14:48 Urine Urobilinogen Normal (NORMAL) 08/12/17 14:48 Ur Leukocyte Esterase Negative (NEGATIVE) 08/12/17 14:48 Urine RBC Rare /HPF (NEGATIVE) 08/12/17 14:48 Urine WBC Rare /HPF (NEGATIVE) 08/12/17 14:48 Ur Squamous Epith Cells Rare /HPF (NEGATIVE) 08/12/17 14:48 Urine Bacteria Negative /HPF (NEGATIVE) 08/12/17 14:48 Ur Culture Indicated? No/not indicated 08/12/17 14:48 Influenza Type A (PCR) Negative (NEGATIVE) 08/12/17 14:20 Influenza Type B (PCR) Negative (NEGATIVE) 08/12/17 14:20 - Plan (1) Chest pain Status: Acute Plan: chest x-ray and ABG collected on admission. Continue respiratory therapy , supplemental O2. Reviewed cardiac enzymes and EKG finding with patient and family. Continue blood pressure monitoring (2) SOB (shortness of breath) Status: Acute (3) Acute bronchitis with chronic obstructive pulmonary disease (COPD) Status: Acute Plan: continue IV antibiotics, respiratory therapy, supplemental O2 (4) CAD (coronary artery disease) Status: Chronic (5) Hypertension Status: Chronic
[2017-08-13] MEDS: MUCINEX DM PO SCH ×2 (14:49→20:56)
[2017-08-13] MEDS: MUCOMYST 20% 200 MG/ML NEB SCH (20:27)
[2017-08-13] MEDS: ZOCOR TAB 40 MG PO SCH (20:55)
[2017-08-13] MEDS ORDERED: SIMVASTATIN 80 MG PO SCH (21:00)
[2017-08-13] MEDS ORDERED: ZOSYN VIAL 4.5 GM IV ONE (21:08)
[2017-08-14] MEDS: TUSSIONEX PENNKINETIC SUSP PO SCH ×2 (01:29→13:35)
[2017-08-14 05:25] LABS: BASOPHILS % (AUTO) 0.2 % (0.2-1.0); HEMATOCRIT 34.9 % (36.0-47.0); HEMOGLOBIN 11.5 g/dL (12.0-16.0); LYMPHOCYTES # (AUTO) 0.6 X10^3/uL (1.3-2.9); MEAN CORPUSCULAR HEMOGLOBIN 27.9 pg (27.0-34.0); MEAN CORPUSCULAR HGB CONC 32.9 g/dL (33.0-35.0); MEAN CORPUSCULAR VOLUME 85.1 fL (80.0-100.0); MEAN PLATELET VOLUME 8.5 fL (7.4-11.0); MONOCYTES # (AUTO) 0.3 x10^3/uL (0.3-0.8); MONOCYTES % (AUTO) 1.6 % (0.0-13.0); NEUTROPHILS # (AUTO) 17.4 x10^3/uL (2.2-4.8); NEUTROPHILS % (AUTO) 95.2 % (42.0-75.0); PLATELET COUNT 189 X10^3/uL (150.0-450.0); RED BLOOD COUNT 4.11 X10^6/uL (3.5-5.4); RED CELL DISTRIBUTION WIDTH 15.4 % (11.6-16.5); WHITE BLOOD COUNT 18.3 X10^3/uL (3.6-10.0)
[2017-08-14] MEDS: SOLU-Medrol 125 MG VIAL IVP SCH ×4 (05:38→22:00)
[2017-08-14] MEDS: ZOSYN VIAL 4.5 GM 4.5 GM in NS 100 ML IV + SPIKE MINIBAG* 100 ML IV SCH ×3 (05:38→22:00)
[2017-08-14 05:50] LABS: ALANINE AMINOTRANSFERASE 26 Units/L (12-78); ALBUMIN 2.2 g/dL (3.4-5.0); ALKALINE PHOSPHATASE 59 Units/L (46-116); ASPARTATE AMINO TRANSFERASE 13 Units/L (15-37); BLOOD UREA NITROGEN 19 mg/dL (7-18); CALCIUM 9.5 mg/dL (8.5-10.1); CARBON DIOXIDE 31.6 mmol/L (21-32); CHLORIDE 106 mmol/L (98-107); COR CA(FOR HYPOALB) 10.9 mg/dL (8.5-10.1); COR NA(FOR HYPERGLY) 144 mmol/L (136-145); CREATININE 0.96 mg/dL (0.55-1.02); SODIUM 142 mmol/L (136-145); TOTAL PROTEIN 5.7 g/dL (6.4-8.2); eGFR BLACK RACES > 60 (>60); eGFR NON BLACK RACES > 60 (>60)
[2017-08-14 06:15] LABS: PLATELET MORPHOLOGY COMMENT NORMAL (NORMAL)
[2017-08-14] MEDS ORDERED: COLACE CAP 100 MG PO PRN (08:07)
[2017-08-14] MEDS: ASPIRIN PO SCH (08:35)
[2017-08-14] MEDS: CARDIZEM SR 120 MG PO SCH (08:35)
[2017-08-14] MEDS: NEURONTIN CAP 100 MG PO SCH (08:35)
[2017-08-14] MEDS: COLACE CAP 100 MG PO SCH (08:35)
[2017-08-14] MEDS: K-DUR TAB 20 MEQ PO SCH (08:36)
[2017-08-14] MEDS: MUCINEX DM PO SCH ×2 (08:36→20:34)
[2017-08-14] MEDS: LASIX PO SCH (08:36)
[2017-08-14] MEDS: VITAMIN B-12 PO SCH (08:36)
[2017-08-14] MEDS: TOPROL XL PO SCH (08:36)
[2017-08-14] MEDS ORDERED: PATIENT'S HOME MEDICATION (Cyanocobalamin (Vitamin B-12) [Vitamin B-12] 1,000 MCG) PO SCH (09:00)
[2017-08-14] MEDS ORDERED: DILTIAZEM HCL 120 MG PO SCH (09:00)
[2017-08-14] MEDS: BROVANA IN SCH ×2 (09:14→20:47)
[2017-08-14] MEDS: PULMICORT NEB TX 0.5 MG NEB SCH ×2 (09:14→20:47)
[2017-08-14] MEDS: XOPENEX 1.25 MG/3 ML NEBULE NEB SCH ×5 (09:14→20:47)
[2017-08-14] MEDS: MUCOMYST 20% 200 MG/ML NEB SCH ×2 (09:15→20:48)
[2017-08-14] MEDS: ATARAX TAB 25 MG PO PRN ×2 (10:00→20:33)
[2017-08-14] MEDS: MILK OF MAGNESIA PO PRN (10:00)
--- NOTE | 2017-08-14 13:46 | PCM.PROG ---
Progress Note - Progress Note for Day of Date: 08/14/17 - Subjective Subjective: patient is a 67-year-old white female who was admitted ON 2016 with complaints of chest pain cough cold and congestion. Patient was previously treated inpatient for COPD exacerbation with acute bronchitis. Post hospital discharge patient had complaints of chest pain. Patient had serial cardiac enzymes and EKGs which were stable. on exam patient has diffuse rhonchi as well as productive cough. We will continue IV antibiotic therapy as well as respiratory care. Ct chest ordered for q am. - Past Medical Family Social History Past Med/Fam/Surg Hx: No changes since H&P Allergies: Allergies azithromycin [From Zithromax] Allergy (Verified 08/12/17 10:25) morphine Allergy (Verified 08/12/17 10:25) nitrofurantoin [From Macrodantin] Allergy (Verified 08/12/17 10:25) Sulfa (Sulfonamide Antibiotics) [SULFA] Allergy (Verified 08/12/17 10:25) - Review of Systems ROS: No change since H&P - Vital Signs and I&O's Vital Signs: Temperature 97.5 F Pulse Rate [Left Brachial] 72 Pulse Rate [Right Brachial] 92 Pulse Rate 102 Respiratory Rate 20 Blood Pressure [Left Arm] 134/73 Blood Pressure [Right Arm] 136/61 Blood Pressure 149/70 O2 Sat by Pulse Oximetry 97 Intake and Output: Intake & Output 08/12/17 08/13/17 08/14/17 08/15/17 11:59 11:59 11:59 11:59 Intake Total 1262 2991 Balance 1262 2991 - Physical Exam Oriented: Normal Eyes: Normal Nose: Normal Throat: Red Respiratory: Wheezes, Rhonchi Cardiovascular: Tachycardia : Normal Auscultation: Bowel Sounds: Normal Tenderness: Normal Skin: Decreased [place] Musculoskeletal: Knee, Back:Thoracic, Back:Lumbar Psychiatric: Anxiety Affect: Anxious Speech Pattern: Clear, Appropriate - Laboratory and Diagnostics Result Diagrams: 08/14/17 05:05 08/14/17 05:05 Labs: 08/12/17 11:35 Blood Blood Culture - Preliminary 08/12/17 11:40 Blood Blood Culture - Preliminary 08/12/17 15:10 Sputum - Expectorated Sputum Sputum Culture - Final 08/12/17 15:10 Sputum - Expectorated Sputum - Final Laboratory WBC 18.3 X10^3/uL (3.6-10.0) H 08/14/17 05:05 RBC 4.11 X10^6/uL (3.5-5.4) 08/14/17 05:05 Hgb 11.5 g/dL (12.0-16.0) L 08/14/17 05:05 Hct 34.9 % (36.0-47.0) L 08/14/17 05:05 MCV 85.1 fL (80.0-100.0) 08/14/17 05:05 MCH 27.9 pg (27.0-34.0) 08/14/17 05:05 MCHC 32.9 g/dL (33.0-35.0) L 08/14/17 05:05 RDW 15.4 % (11.6-16.5) 08/14/17 05:05 Plt Count 189 X10^3/uL (150.0-450.0) 08/14/17 05:05 Plt Count Comment Adequate (ADEQUATE) 08/14/17 05:05 MPV 8.5 fL (7.4-11.0) 08/14/17 05:05 Neut % 95.2 % (42.0-75.0) H 08/14/17 05:05 Lymph % 3.0 % (21.0-51.0) L 08/14/17 05:05 [place] % 1.6 % (0.0-13.0) 08/14/17 05:05 Eos % 0.0 % (0.9-2.9) L 08/14/17 05:05 Baso % 0.2 % (0.2-1.0) 08/14/17 05:05 Neut # 17.4 x10^3/uL (2.2-4.8) H 08/14/17 05:05 Lymph # 0.6 X10^3/uL (1.3-2.9) L 08/14/17 05:05 [place] # 0.3 x10^3/uL (0.3-0.8) 08/14/17 05:05 Eos # 0.0 x10^3/uL (0.0-0.2) 08/14/17 05:05 Baso # 0.0 X10^3/uL (0.0-0.1) 08/14/17 05:05 Absolute Nucleated RBC 0.0 /100WBC 08/14/17 05:05 Total Counted 100 08/14/17 05:05 Neutrophils % (Manual) 93 % (39-76) H 08/14/17 05:05 Band Neutrophils % 5 % (0-10) 08/13/17 05:20 Lymphocytes % (Manual) 6 % (13-43) L 08/14/17 05:05 Monocytes % (Manual) 1 % (4-9) L 08/14/17 05:05 Plt Morphology Comment Normal (NORMAL) 08/14/17 05:05 RBC Morphology Normal (NORMAL) 08/14/17 05:05 INR Target Range - 08/12/17 11:40 INR 0.90 (0.8-1.3) 08/12/17 11:40 PTT 21.3 SECONDS (22.9-36.5) L 08/12/17 11:40 PTT Comment - 08/12/17 11:40 Sample Site Left brachial 08/12/17 11:38 ABG pH 7.490 (7.35-7.45) H 08/12/17 11:38 ABG pCO2 43.0 mmHg (35.0-45.0) 08/12/17 11:38 ABG pO2 66.0 mmHg (80.0-100.0) L 08/12/17 11:38 ABG HCO3 32.8 mmol/L (22-26) H* 08/12/17 11:38 ABG O2 Saturation 94.0 % (90-100) 08/12/17 11:38 ABG Base Excess 8.5 mmol/L (-2.0-2.0) H 08/12/17 11:38 Pete Test Na 08/12/17 11:38 A-a Gradient 94.0 mmHg 08/12/17 11:38 FiO2 30.000 08/12/17 11:38 Blood Gas Comments [place] well aw 08/12/17 11:38 Sodium 142 mmol/L (136-145) 08/14/17 05:05 Corrected Sodium 144 mmol/L (136-145) 08/14/17 05:05 Potassium 4.0 mmol/L (3.5-5.1) 08/14/17 05:05 Chloride 106 mmol/L (98-107) 08/14/17 05:05 Carbon Dioxide 31.6 mmol/L (21-32) 08/14/17 05:05 BUN 19 mg/dL (7-18) H 08/14/17 05:05 Creatinine 0.96 mg/dL (0.55-1.02) 08/14/17 05:05 Est GFR (MDRD) Af Amer > 60 (>60) 08/14/17 05:05 Est GFR (MDRD) Non-Af > 60 (>60) 08/14/17 05:05 Glucose 172 mg/dL (65-99) H 08/14/17 05:05 Calcium 9.5 mg/dL (8.5-10.1) 08/14/17 05:05 Corrected Calcium 10.9 mg/dL (8.5-10.1) H 08/14/17 05:05 Magnesium 1.8 mg/dL (1.7-2.9) 08/12/17 11:35 Total Bilirubin 0.40 mg/dL (0.2-1.0) 08/14/17 05:05 AST 13 Units/L (15-37) L 08/14/17 05:05 ALT 26 Units/L (12-78) 08/14/17 05:05 Alkaline Phosphatase 59 Units/L (46-116) 08/14/17 05:05 Creatine Kinase 48 Units/L (26-192) 08/12/17 22:45 CK-MB (CK-2) < 1.0 ng/mL (0-4.0) 08/12/17 22:45 CK/CKMB % Calc 2.1 % (<4) 08/12/17 22:45 Troponin I < 0.02 ng/mL (0-1.5) 08/12/17 22:45 Total Protein 5.7 g/dL (6.4-8.2) L 08/14/17 05:05 Albumin 2.2 g/dL (3.4-5.0) L 08/14/17 05:05 Globulin 3.5 g/dL (2.5-4.5) 08/14/17 05:05 Albumin/Globulin Ratio 0.6 Ratio (1.1-2.1) L 08/14/17 05:05 Triglycerides 61 mg/dL (0-150) 08/13/17 05:20 Cholesterol 164 mg/dL (0-200) 08/13/17 05:20 LDL Cholesterol, Calc 70 mg/dL (0-100) 08/13/17 05:20 HDL Cholesterol 82 mg/dL (40-60) H 08/13/17 05:20 Cholesterol/HDL Ratio 2.0 (0.0-5.0) 08/13/17 05:20 Specimen Type Clean catch urine 08/12/17 14:48 Urine Color Yellow (YELLOW) 08/12/17 14:48 Urine Appearance Clear (CLEAR) 08/12/17 14:48 Urine pH 7.0 (5.0 - 8.0) 08/12/17 14:48 Ur Specific [place] 1.015 (1.000-1.030) 08/12/17 14:48 Urine Protein Negative (NEGATIVE) 08/12/17 14:48 Urine Glucose (UA) Negative (NEGATIVE) 08/12/17 14:48 Urine Ketones Negative (NEGATIVE) 08/12/17 14:48 Urine Occult Blood 1+ (NEGATIVE) 08/12/17 14:48 Urine Nitrite Negative (NEGATIVE) 08/12/17 14:48 Urine Bilirubin Negative (NEGATIVE) 08/12/17 14:48 Urine Urobilinogen Normal (NORMAL) 08/12/17 14:48 Ur Leukocyte Esterase Negative (NEGATIVE) 08/12/17 14:48 Urine RBC Rare /HPF (NEGATIVE) 08/12/17 14:48 Urine WBC Rare /HPF (NEGATIVE) 08/12/17 14:48 Ur Squamous Epith Cells Rare /HPF (NEGATIVE) 08/12/17 14:48 Urine Bacteria Negative /HPF (NEGATIVE) 08/12/17 14:48 Ur Culture Indicated? No/not indicated 08/12/17 14:48 Influenza Type A (PCR) Negative (NEGATIVE) 08/12/17 14:20 Influenza Type B (PCR) Negative (NEGATIVE) 08/12/17 14:20 - Plan (1) Chest pain Status: Acute Plan: chest x-ray and ABG collected on admission. Continue respiratory therapy , supplemental O2. Reviewed cardiac enzymes and EKG finding with patient and family. Continue blood pressure monitoring (2) SOB (shortness of breath) Status: Acute (3) Acute bronchitis with chronic obstructive pulmonary disease (COPD) Status: Acute Plan: continue IV antibiotics, respiratory therapy, supplemental O2. CT CHEST WITH CONTRAST IN THE AM (4) CAD (coronary artery disease) Status: Chronic (5) Hypertension Status: Chronic
[2017-08-14] MEDS: PERCOCET TAB 5/325 MG PO PRN (20:33)
[2017-08-14] MEDS: ZOCOR TAB 40 MG PO SCH (20:34)
[2017-08-15] MEDS: TUSSIONEX PENNKINETIC SUSP PO SCH ×2 (02:16→12:32)
[2017-08-15 05:34] LABS: BASOPHILS % (AUTO) 0.3 % (0.2-1.0); HEMATOCRIT 34.6 % (36.0-47.0); HEMOGLOBIN 11.1 g/dL (12.0-16.0); LYMPHOCYTES # (AUTO) 0.5 X10^3/uL (1.3-2.9); LYMPHOCYTES % (AUTO) 4.2 % (21.0-51.0); MEAN CORPUSCULAR HEMOGLOBIN 27.8 pg (27.0-34.0); MEAN CORPUSCULAR HGB CONC 32.2 g/dL (33.0-35.0); MEAN CORPUSCULAR VOLUME 86.2 fL (80.0-100.0); MONOCYTES # (AUTO) 0.3 x10^3/uL (0.3-0.8); MONOCYTES % (AUTO) 2.6 % (0.0-13.0); NEUTROPHILS # (AUTO) 12.2 x10^3/uL (2.2-4.8); NEUTROPHILS % (AUTO) 92.9 % (42.0-75.0); PLATELET COUNT 192 X10^3/uL (150.0-450.0); RED BLOOD COUNT 4.01 X10^6/uL (3.5-5.4); RED CELL DISTRIBUTION WIDTH 15.3 % (11.6-16.5); WHITE BLOOD COUNT 13.2 X10^3/uL (3.6-10.0)
[2017-08-15] MEDS: SOLU-Medrol 125 MG VIAL IVP SCH (05:34)
[2017-08-15] MEDS: ZOSYN VIAL 4.5 GM 4.5 GM in NS 100 ML IV + SPIKE MINIBAG* 100 ML IV SCH ×2 (05:35→13:03)
[2017-08-15 06:04] LABS: ALANINE AMINOTRANSFERASE 18 Units/L (12-78); ALBUMIN 2.2 g/dL (3.4-5.0); ALKALINE PHOSPHATASE 53 Units/L (46-116); ASPARTATE AMINO TRANSFERASE 12 Units/L (15-37); BLOOD UREA NITROGEN 24 mg/dL (7-18); CALCIUM 9.3 mg/dL (8.5-10.1); CARBON DIOXIDE 32.1 mmol/L (21-32); CHLORIDE 106 mmol/L (98-107); COR CA(FOR HYPOALB) 10.7 mg/dL (8.5-10.1); COR NA(FOR HYPERGLY) 143 mmol/L (136-145); CREATININE 0.97 mg/dL (0.55-1.02); SODIUM 142 mmol/L (136-145); TOTAL PROTEIN 5.5 g/dL (6.4-8.2); eGFR BLACK RACES > 60 (>60); eGFR NON BLACK RACES > 60 (>60)
[2017-08-15 07:02] LABS: PLATELET MORPHOLOGY COMMENT NORMAL (NORMAL)
--- NOTE | 2017-08-15 07:57 | CT ---
History: Shortness of breath and chest pain Study: CT chest without contrast Findings: There is mild subsegmental atelectasis in the posterior basilar segment of the right lower lobe. There is ill-defined density peripherally in the lingula. There is no pleural effusion. There i s no obvious adenopathy. The visualized upper abdomen is unremarkable status post cholecystectomy. Impression: 1. Subsegmental atelectasis in the posterior basilar segment of the right lower lobe 2. Nonspecific density in the lingula peripherally likely representing some scarring. Reported By:
[2017-08-15] MEDS: MUCINEX DM PO SCH ×2 (08:35→21:16)
[2017-08-15] MEDS: VITAMIN B-12 PO SCH (08:35)
[2017-08-15] MEDS: K-DUR TAB 20 MEQ PO SCH (08:35)
[2017-08-15] MEDS: COLACE CAP 100 MG PO SCH (08:35)
[2017-08-15] MEDS: ASPIRIN PO SCH (08:35)
[2017-08-15] MEDS: CARDIZEM SR 120 MG PO SCH (08:36)
[2017-08-15] MEDS: TOPROL XL PO SCH (08:36)
[2017-08-15] MEDS: NEURONTIN CAP 100 MG PO SCH (08:36)
[2017-08-15] MEDS: LASIX PO SCH (08:36)
[2017-08-15] MEDS: BROVANA IN SCH ×2 (08:58→20:51)
[2017-08-15] MEDS: PULMICORT NEB TX 0.5 MG NEB SCH ×2 (08:58→20:51)
[2017-08-15] MEDS: XOPENEX 1.25 MG/3 ML NEBULE NEB SCH ×4 (08:59→20:51)
[2017-08-15] MEDS: MUCOMYST 20% 200 MG/ML NEB SCH (08:59)
[2017-08-15] MEDS: LEVAQUIN PREMIX IV 750 MG 750 MG/150 ML BAG IV SCH (09:48)
[2017-08-15] MEDS: ATARAX TAB 25 MG PO PRN ×2 (09:49→21:16)
[2017-08-15] MEDS: NYSTATIN SUSP MT SCH ×4 (09:49→21:16)
[2017-08-15] MEDS ORDERED: CONSULT PHARMACY - ANTIBIOTIC XX SCH (10:00)
[2017-08-15] MEDS: ZOSYN VIAL 4.5 GM 4.5 GM in NS 100 ML IV 100 ML IV SCH ×2 (13:52→21:17)
[2017-08-15] MEDS: ZOCOR TAB 40 MG PO SCH (21:16)
[2017-08-16] MEDS: TUSSIONEX PENNKINETIC SUSP PO SCH ×2 (00:50→13:30)
[2017-08-16] MEDS: MILK OF MAGNESIA PO PRN (03:24)
[2017-08-16] MEDS: ZOSYN VIAL 4.5 GM 4.5 GM in NS 100 ML IV 100 ML IV SCH (05:53)
[2017-08-16 06:08] LABS: BASOPHILS % (AUTO) 0.2 % (0.2-1.0); HEMATOCRIT 35.5 % (36.0-47.0); HEMOGLOBIN 11.5 g/dL (12.0-16.0); LYMPHOCYTES # (AUTO) 0.9 X10^3/uL (1.3-2.9); LYMPHOCYTES % (AUTO) 7.3 % (21.0-51.0); MEAN CORPUSCULAR HEMOGLOBIN 27.7 pg (27.0-34.0); MEAN CORPUSCULAR HGB CONC 32.4 g/dL (33.0-35.0); MEAN CORPUSCULAR VOLUME 85.6 fL (80.0-100.0); MEAN PLATELET VOLUME 8.8 fL (7.4-11.0); MONOCYTES # (AUTO) 0.5 x10^3/uL (0.3-0.8); NEUTROPHILS # (AUTO) 10.5 x10^3/uL (2.2-4.8); NEUTROPHILS % (AUTO) 88.5 % (42.0-75.0); PLATELET COUNT 198 X10^3/uL (150.0-450.0); RED BLOOD COUNT 4.15 X10^6/uL (3.5-5.4); RED CELL DISTRIBUTION WIDTH 15.2 % (11.6-16.5); WHITE BLOOD COUNT 11.9 X10^3/uL (3.6-10.0)
[2017-08-16 06:23] LABS: ALANINE AMINOTRANSFERASE 20 Units/L (12-78); ALBUMIN 2.4 g/dL (3.4-5.0); ALKALINE PHOSPHATASE 56 Units/L (46-116); ASPARTATE AMINO TRANSFERASE 14 Units/L (15-37); BLOOD UREA NITROGEN 21 mg/dL (7-18); CALCIUM 9.3 mg/dL (8.5-10.1); CARBON DIOXIDE 33.3 mmol/L (21-32); CHLORIDE 104 mmol/L (98-107); COR CA(FOR HYPOALB) 10.6 mg/dL (8.5-10.1); COR NA(FOR HYPERGLY) 143 mmol/L (136-145); CREATININE 1.03 mg/dL (0.55-1.02); SODIUM 142 mmol/L (136-145); TOTAL PROTEIN 5.8 g/dL (6.4-8.2); eGFR BLACK RACES > 60 (>60); eGFR NON BLACK RACES 57 (>60)
--- NOTE | 2017-08-16 06:42 | RAD ---
Chest, one-view Indication: COPD, CHF Comparison: 08/12/2017 Findings: Heart size is normal for AP technique. Right subclavian port catheter appears well position without pneumothorax. There is mild bibasilar atelectasis. No focal consolidation or significant eff usion identified. No acute osseous abnormality is seen. Impression: No acute cardiopulmonary abnormality. Reported By:
[2017-08-16] MEDS: XOPENEX 1.25 MG/3 ML NEBULE NEB SCH ×4 (08:52→20:31)
[2017-08-16] MEDS: BROVANA IN SCH ×2 (08:53→20:31)
[2017-08-16] MEDS: PULMICORT NEB TX 0.5 MG NEB SCH ×2 (08:53→20:31)
[2017-08-16] MEDS: MUCOMYST 20% 200 MG/ML NEB SCH ×2 (08:53→20:31)
[2017-08-16] MEDS: LEVAQUIN PREMIX IV 750 MG 750 MG/150 ML BAG IV SCH (09:18)
[2017-08-16] MEDS: LASIX PO SCH (09:20)
[2017-08-16] MEDS: K-DUR TAB 20 MEQ PO SCH (09:20)
[2017-08-16] MEDS: MUCINEX DM PO SCH ×2 (09:20→21:26)
[2017-08-16] MEDS: NEURONTIN CAP 100 MG PO SCH (09:20)
[2017-08-16] MEDS: ASPIRIN PO SCH (09:20)
[2017-08-16] MEDS: COLACE CAP 100 MG PO SCH (09:21)
[2017-08-16] MEDS: TOPROL XL PO SCH (09:21)
[2017-08-16] MEDS: CARDIZEM SR 120 MG PO SCH (09:21)
[2017-08-16] MEDS: VITAMIN B-12 PO SCH (09:21)
[2017-08-16] MEDS: ATARAX TAB 25 MG PO PRN ×2 (09:27→21:26)
[2017-08-16] MEDS: NYSTATIN SUSP MT SCH ×4 (09:29→21:26)
[2017-08-16] MEDS: ZYVOX 600MG IV 600 MG/300 ML BAG IV SCH (21:20)
[2017-08-16] MEDS: TESSALON PERLES PO PRN (21:26)
[2017-08-16] MEDS: ZOCOR TAB 40 MG PO SCH (21:26)
[2017-08-17] MEDS: TUSSIONEX PENNKINETIC SUSP PO SCH ×2 (01:57→13:26)
[2017-08-17 05:42] LABS: BASOPHILS % (AUTO) 0.7 % (0.2-1.0); EOSINOPHILS % (AUTO) 0.3 % (0.9-2.9); HEMATOCRIT 33.9 % (36.0-47.0); HEMOGLOBIN 11.1 g/dL (12.0-16.0); LYMPHOCYTES # (AUTO) 1.9 X10^3/uL (1.3-2.9); LYMPHOCYTES % (AUTO) 25.8 % (21.0-51.0); MEAN CORPUSCULAR HGB CONC 32.7 g/dL (33.0-35.0); MEAN CORPUSCULAR VOLUME 85.4 fL (80.0-100.0); MEAN PLATELET VOLUME 8.8 fL (7.4-11.0); MONOCYTES # (AUTO) 0.4 x10^3/uL (0.3-0.8); MONOCYTES % (AUTO) 5.8 % (0.0-13.0); NEUTROPHILS % (AUTO) 67.4 % (42.0-75.0); PLATELET COUNT 174 X10^3/uL (150.0-450.0); RED BLOOD COUNT 3.97 X10^6/uL (3.5-5.4); RED CELL DISTRIBUTION WIDTH 15.3 % (11.6-16.5); WHITE BLOOD COUNT 7.4 X10^3/uL (3.6-10.0)
[2017-08-17 06:01] LABS: ALANINE AMINOTRANSFERASE 21 Units/L (12-78); ALBUMIN 2.1 g/dL (3.4-5.0); ALKALINE PHOSPHATASE 55 Units/L (46-116); ASPARTATE AMINO TRANSFERASE 14 Units/L (15-37); BLOOD UREA NITROGEN 17 mg/dL (7-18); CARBON DIOXIDE 34.8 mmol/L (21-32); CHLORIDE 104 mmol/L (98-107); COR CA(FOR HYPOALB) 10.5 mg/dL (8.5-10.1); CREATININE 0.91 mg/dL (0.55-1.02); SODIUM 143 mmol/L (136-145); TOTAL PROTEIN 5.2 g/dL (6.4-8.2); eGFR BLACK RACES > 60 (>60); eGFR NON BLACK RACES > 60 (>60)
[2017-08-17] MEDS: XOPENEX 1.25 MG/3 ML NEBULE NEB SCH ×4 (09:02→20:30)
[2017-08-17] MEDS: BROVANA IN SCH ×2 (09:02→20:31)
[2017-08-17] MEDS: PULMICORT NEB TX 0.5 MG NEB SCH ×2 (09:02→20:31)
[2017-08-17] MEDS: MUCOMYST 20% 200 MG/ML NEB SCH ×2 (09:03→20:31)
[2017-08-17] MEDS: ZYVOX 600MG IV 600 MG/300 ML BAG IV SCH ×2 (09:11→21:19)
[2017-08-17] MEDS: LEVAQUIN PREMIX IV 750 MG 750 MG/150 ML BAG IV SCH (09:12)
[2017-08-17] MEDS: NYSTATIN SUSP MT SCH ×4 (09:13→21:20)
[2017-08-17] MEDS: CARDIZEM SR 120 MG PO SCH (09:13)
[2017-08-17] MEDS: ASPIRIN PO SCH (09:13)
[2017-08-17] MEDS: NEURONTIN CAP 100 MG PO SCH (09:14)
[2017-08-17] MEDS: LASIX PO SCH (09:14)
[2017-08-17] MEDS: VITAMIN B-12 PO SCH (09:14)
[2017-08-17] MEDS: TOPROL XL PO SCH (09:14)
[2017-08-17] MEDS: COLACE CAP 100 MG PO SCH (09:14)
[2017-08-17] MEDS: MUCINEX DM PO SCH ×2 (09:15→21:19)
[2017-08-17] MEDS: K-DUR TAB 20 MEQ PO SCH (09:15)
[2017-08-17] MEDS: ATARAX TAB 25 MG PO PRN ×2 (09:20→21:19)
[2017-08-17] MEDS ORDERED: ASTELIN NASAL SPRAY ENOSTRIL ONE (12:26)
[2017-08-17] MEDS: ASTELIN NASAL SPRAY ENOSTRIL SCH ×2 (13:22→21:19)
[2017-08-17] MEDS: ZOCOR TAB 40 MG PO SCH (21:19)
[2017-08-17] MEDS: TESSALON PERLES PO PRN (21:20)
[2017-08-18] MEDS: TUSSIONEX PENNKINETIC SUSP PO SCH ×2 (01:40→12:34)
[2017-08-18 05:17] LABS: BASOPHILS % (AUTO) 0.1 % (0.2-1.0); EOSINOPHILS # (AUTO) 0.3 x10^3/uL (0.0-0.2); HEMATOCRIT 34.2 % (36.0-47.0); HEMOGLOBIN 11.3 g/dL (12.0-16.0); LYMPHOCYTES # (AUTO) 1.8 X10^3/uL (1.3-2.9); LYMPHOCYTES % (AUTO) 27.2 % (21.0-51.0); MEAN CORPUSCULAR HEMOGLOBIN 28.3 pg (27.0-34.0); MEAN CORPUSCULAR VOLUME 85.7 fL (80.0-100.0); MEAN PLATELET VOLUME 8.6 fL (7.4-11.0); MONOCYTES # (AUTO) 0.4 x10^3/uL (0.3-0.8); MONOCYTES % (AUTO) 5.3 % (0.0-13.0); NEUTROPHILS # (AUTO) 4.3 x10^3/uL (2.2-4.8); NEUTROPHILS % (AUTO) 63.4 % (42.0-75.0); PLATELET COUNT 175 X10^3/uL (150.0-450.0); RED BLOOD COUNT 3.99 X10^6/uL (3.5-5.4); RED CELL DISTRIBUTION WIDTH 15.1 % (11.6-16.5); WHITE BLOOD COUNT 6.7 X10^3/uL (3.6-10.0)
[2017-08-18 05:23] LABS: ALANINE AMINOTRANSFERASE 18 Units/L (12-78); ALBUMIN 2.1 g/dL (3.4-5.0); ALKALINE PHOSPHATASE 53 Units/L (46-116); ASPARTATE AMINO TRANSFERASE 13 Units/L (15-37); BLOOD UREA NITROGEN 11 mg/dL (7-18); CALCIUM 8.7 mg/dL (8.5-10.1); CHLORIDE 104 mmol/L (98-107); COR CA(FOR HYPOALB) 10.2 mg/dL (8.5-10.1); CREATININE 0.87 mg/dL (0.55-1.02); SODIUM 142 mmol/L (136-145); TOTAL PROTEIN 5.1 g/dL (6.4-8.2); eGFR BLACK RACES > 60 (>60); eGFR NON BLACK RACES > 60 (>60)
[2017-08-18 05:45] LABS: PLATELET MORPHOLOGY COMMENT NORMAL (NORMAL)
[2017-08-18] MEDS: BROVANA IN SCH ×2 (08:07→20:31)
[2017-08-18] MEDS: MUCOMYST 20% 200 MG/ML NEB SCH ×2 (08:08→20:32)
[2017-08-18] MEDS: PULMICORT NEB TX 0.5 MG NEB SCH ×2 (08:08→20:31)
[2017-08-18] MEDS: XOPENEX 1.25 MG/3 ML NEBULE NEB SCH ×4 (08:08→20:31)
[2017-08-18] MEDS: CARDIZEM SR 120 MG PO SCH (08:30)
[2017-08-18] MEDS: ASPIRIN PO SCH (08:30)
[2017-08-18] MEDS: LASIX PO SCH (08:30)
[2017-08-18] MEDS: NYSTATIN SUSP MT SCH ×4 (08:30→20:53)
[2017-08-18] MEDS: VITAMIN B-12 PO SCH (08:31)
[2017-08-18] MEDS: K-DUR TAB 20 MEQ PO SCH (08:31)
[2017-08-18] MEDS: ATARAX TAB 25 MG PO PRN ×2 (08:33→20:53)
[2017-08-18] MEDS: MUCINEX DM PO SCH ×2 (08:33→20:53)
[2017-08-18] MEDS: NEURONTIN CAP 100 MG PO SCH (08:33)
[2017-08-18] MEDS: TOPROL XL PO SCH (08:33)
[2017-08-18] MEDS: COLACE CAP 100 MG PO SCH (08:33)
[2017-08-18] MEDS: ZYVOX 600MG IV 600 MG/300 ML BAG IV SCH ×2 (08:34→20:52)
[2017-08-18] MEDS: LEVAQUIN PREMIX IV 750 MG 750 MG/150 ML BAG IV SCH (08:35)
[2017-08-18] MEDS: ASTELIN NASAL SPRAY ENOSTRIL SCH ×2 (08:39→20:54)
[2017-08-18] MEDS ORDERED: PHARMACY CONSULT - DOSE _____ XX SCH (10:00)
[2017-08-18] MEDS: DIFLUCAN 200 MG IV PREMIX* 200 MG/100 ML BAG IV SCH (12:34)
[2017-08-18] MEDS: NS 500 ML IV 500 ML IV PRN (20:52)
[2017-08-18] MEDS: TESSALON PERLES PO PRN (20:53)
[2017-08-18] MEDS: ZOCOR TAB 40 MG PO SCH (20:53)
[2017-08-18] MEDS: PERCOCET TAB 5/325 MG PO PRN (21:01)
[2017-08-19] MEDS: TUSSIONEX PENNKINETIC SUSP PO SCH ×2 (00:38→14:11)
[2017-08-19 05:23] LABS: ALANINE AMINOTRANSFERASE 29 Units/L (12-78); ALBUMIN 2.3 g/dL (3.4-5.0); ALKALINE PHOSPHATASE 65 Units/L (46-116); ASPARTATE AMINO TRANSFERASE 27 Units/L (15-37); BLOOD UREA NITROGEN 12 mg/dL (7-18); CARBON DIOXIDE 32.7 mmol/L (21-32); CHLORIDE 100 mmol/L (98-107); COR CA(FOR HYPOALB) 10.4 mg/dL (8.5-10.1); CREATININE 1.06 mg/dL (0.55-1.02); SODIUM 138 mmol/L (136-145); TOTAL PROTEIN 5.5 g/dL (6.4-8.2); eGFR BLACK RACES > 60 (>60); eGFR NON BLACK RACES 55 (>60)
[2017-08-19 05:38] LABS: BASOPHILS % (AUTO) 0.2 % (0.2-1.0); EOSINOPHILS # (AUTO) 0.4 x10^3/uL (0.0-0.2); EOSINOPHILS % (AUTO) 4.9 % (0.9-2.9); HEMATOCRIT 35.2 % (36.0-47.0); HEMOGLOBIN 11.5 g/dL (12.0-16.0); LYMPHOCYTES # (AUTO) 1.7 X10^3/uL (1.3-2.9); LYMPHOCYTES % (AUTO) 23.5 % (21.0-51.0); MEAN CORPUSCULAR HEMOGLOBIN 28.4 pg (27.0-34.0); MEAN CORPUSCULAR HGB CONC 32.7 g/dL (33.0-35.0); MEAN CORPUSCULAR VOLUME 86.6 fL (80.0-100.0); MEAN PLATELET VOLUME 8.6 fL (7.4-11.0); MONOCYTES # (AUTO) 0.4 x10^3/uL (0.3-0.8); MONOCYTES % (AUTO) 5.9 % (0.0-13.0); NEUTROPHILS # (AUTO) 4.8 x10^3/uL (2.2-4.8); NEUTROPHILS % (AUTO) 65.5 % (42.0-75.0); PLATELET COUNT 181 X10^3/uL (150.0-450.0); RED BLOOD COUNT 4.07 X10^6/uL (3.5-5.4); RED CELL DISTRIBUTION WIDTH 15.5 % (11.6-16.5); WHITE BLOOD COUNT 7.4 X10^3/uL (3.6-10.0)
[2017-08-19 05:56] LABS: BAND NEUTROPHILS % 3 % (0-10)
[2017-08-19 05:57] LABS: PLATELET MORPHOLOGY COMMENT NORMAL (NORMAL)
[2017-08-19] MEDS: PULMICORT NEB TX 0.5 MG NEB SCH ×2 (09:10→20:50)
[2017-08-19] MEDS: BROVANA IN SCH ×2 (09:10→20:49)
[2017-08-19] MEDS: XOPENEX 1.25 MG/3 ML NEBULE NEB SCH ×4 (09:10→20:49)
[2017-08-19] MEDS: MUCOMYST 20% 200 MG/ML NEB SCH ×2 (09:11→20:50)
[2017-08-19] MEDS: LEVAQUIN PREMIX IV 750 MG 750 MG/150 ML BAG IV SCH (09:20)
[2017-08-19] MEDS: ASPIRIN PO SCH (09:20)
[2017-08-19] MEDS: NYSTATIN SUSP MT SCH ×4 (09:20→20:36)
[2017-08-19] MEDS: LASIX PO SCH (09:20)
[2017-08-19] MEDS: MUCINEX DM PO SCH ×2 (09:21→20:36)
[2017-08-19] MEDS: COLACE CAP 100 MG PO SCH (09:21)
[2017-08-19] MEDS: TOPROL XL PO SCH (09:21)
[2017-08-19] MEDS: NEURONTIN CAP 100 MG PO SCH (09:22)
[2017-08-19] MEDS: VITAMIN B-12 PO SCH (09:22)
[2017-08-19] MEDS: CARDIZEM SR 120 MG PO SCH (09:22)
[2017-08-19] MEDS: K-DUR TAB 20 MEQ PO SCH (09:24)
[2017-08-19] MEDS: MILK OF MAGNESIA PO PRN (09:26)
[2017-08-19] MEDS ORDERED: RESTORIL CAP 15 MG PO PRN (09:26)
[2017-08-19] MEDS: ATARAX TAB 25 MG PO PRN ×2 (09:27→20:10)
[2017-08-19] MEDS: ASTELIN NASAL SPRAY ENOSTRIL SCH ×2 (09:28→20:38)
[2017-08-19] MEDS: LASIX IVP SCH ×2 (10:23→20:37)
[2017-08-19] MEDS: DIFLUCAN 200 MG IV PREMIX* 200 MG/100 ML BAG IV SCH (10:23)
[2017-08-19] MEDS: ZYVOX 600MG IV 600 MG/300 ML BAG IV SCH ×2 (10:23→20:37)
[2017-08-19] MEDS: ZOFRAN INJ 4 MG VIAL IVP PRN (12:05)
[2017-08-19] MEDS: ZOCOR TAB 40 MG PO SCH (20:37)
[2017-08-20] MEDS: PERCOCET TAB 5/325 MG PO PRN (00:20)
[2017-08-20] MEDS: TUSSIONEX PENNKINETIC SUSP PO SCH ×2 (00:21→13:22)
[2017-08-20 05:00] LABS: BASOPHILS % (AUTO) 0.4 % (0.2-1.0); EOSINOPHILS # (AUTO) 0.3 x10^3/uL (0.0-0.2); EOSINOPHILS % (AUTO) 3.8 % (0.9-2.9); HEMATOCRIT 35.8 % (36.0-47.0); HEMOGLOBIN 11.8 g/dL (12.0-16.0); LYMPHOCYTES # (AUTO) 1.6 X10^3/uL (1.3-2.9); LYMPHOCYTES % (AUTO) 21.2 % (21.0-51.0); MEAN CORPUSCULAR HEMOGLOBIN 28.1 pg (27.0-34.0); MEAN CORPUSCULAR HGB CONC 32.9 g/dL (33.0-35.0); MEAN CORPUSCULAR VOLUME 85.3 fL (80.0-100.0); MEAN PLATELET VOLUME 8.3 fL (7.4-11.0); MONOCYTES # (AUTO) 0.5 x10^3/uL (0.3-0.8); MONOCYTES % (AUTO) 7.2 % (0.0-13.0); NEUTROPHILS # (AUTO) 5.1 x10^3/uL (2.2-4.8); NEUTROPHILS % (AUTO) 67.4 % (42.0-75.0); PLATELET COUNT 202 X10^3/uL (150.0-450.0); RED BLOOD COUNT 4.19 X10^6/uL (3.5-5.4); RED CELL DISTRIBUTION WIDTH 15.7 % (11.6-16.5); WHITE BLOOD COUNT 7.5 X10^3/uL (3.6-10.0)
[2017-08-20 06:39] LABS: ALANINE AMINOTRANSFERASE 35 Units/L (12-78); ALBUMIN 2.9 g/dL (3.4-5.0); ALKALINE PHOSPHATASE 76 Units/L (46-116); ASPARTATE AMINO TRANSFERASE 28 Units/L (15-37); BLOOD UREA NITROGEN 9 mg/dL (7-18); CALCIUM 9.3 mg/dL (8.5-10.1); CARBON DIOXIDE 33.8 mmol/L (21-32); CHLORIDE 96 mmol/L (98-107); COR CA(FOR HYPOALB) 10.2 mg/dL (8.5-10.1); CREATININE 1.19 mg/dL (0.55-1.02); SODIUM 136 mmol/L (136-145); eGFR BLACK RACES 58 (>60); eGFR NON BLACK RACES 48 (>60)
[2017-08-20] MEDS: TOPROL XL PO SCH (09:12)
[2017-08-20] MEDS: COLACE CAP 100 MG PO SCH (09:12)
[2017-08-20] MEDS: K-DUR TAB 20 MEQ PO SCH (09:12)
[2017-08-20] MEDS: ASPIRIN PO SCH (09:12)
[2017-08-20] MEDS: MUCOMYST 20% 200 MG/ML NEB SCH (09:13)
[2017-08-20] MEDS: DIFLUCAN 200 MG IV PREMIX* 200 MG/100 ML BAG IV SCH (09:13)
[2017-08-20] MEDS: MUCINEX DM PO SCH (09:13)
[2017-08-20] MEDS: BROVANA IN SCH (09:13)
[2017-08-20] MEDS: VITAMIN B-12 PO SCH (09:13)
[2017-08-20] MEDS: NEURONTIN CAP 100 MG PO SCH (09:13)
[2017-08-20] MEDS: PULMICORT NEB TX 0.5 MG NEB SCH (09:13)
[2017-08-20] MEDS: LASIX PO SCH (09:13)
[2017-08-20] MEDS: XOPENEX 1.25 MG/3 ML NEBULE NEB SCH ×2 (09:13→12:15)
[2017-08-20] MEDS: NYSTATIN SUSP MT SCH ×2 (09:13→13:22)
[2017-08-20] MEDS: CARDIZEM SR 120 MG PO SCH (09:13)
[2017-08-20] MEDS: ZYVOX 600MG IV 600 MG/300 ML BAG IV SCH (09:14)
[2017-08-20] MEDS: ASTELIN NASAL SPRAY ENOSTRIL SCH (09:15)
[2017-08-20] MEDS: ATARAX TAB 25 MG PO PRN (09:58)
--- NOTE | 2017-08-20 10:28 | RAD ---
Examination: Left knee, two views History: Lobe impact fall Findings: Two views of the left knee demonstrate arthroplasty components related anatomically. There is no evidence for fracture, dislocation, hardware abnormality or patellar displacement. No synovial effusion is noted. Impression: Status post left TKA, no fracture demonstrated. Reported By:
--- NOTE | 2017-08-20 10:29 | RAD ---
Examination: Right knee, two views History: Low impact fall Findings: Arthroplasty components are anatomically related. There is no evidence for fracture or disl ocation. The patella is in normal position. There is a nonacute bone fragment at the medial margin of the joint space. No synovial effusion is demonstrated. Impression: Status post right TKA; no acute injury identified. Reported By:
[2017-08-20] MEDS: MILK OF MAGNESIA PO PRN (10:40)
[2017-08-20] MEDS: KENALOG CREAM TOP SCH ×2 (10:40→13:22)
[2017-08-20 13:11] VITALS: BP 111/46
== END 2017-08-20 15:00 | disposition home health service (06) | DRG 313 ==
LOC: MED/SURG 09:38 → UNDOADMOB 09:38 → MED/SURG 10:06 → OBSVTOIN 08-14 09:00
PROVIDERS: ADMIT Internal Medicine; ATTEND Internal Medicine
DX: R07.89 Other chest pain (principal); J20.8 Acute bronchitis due to other specified organisms; R06.02 Shortness of breath; I25.10 Atherosclerotic heart disease of native coronary artery without angina pectoris; J44.9 Chronic obstructive pulmonary disease, unspecified; E78.2 Mixed hyperlipidemia; I10 Essential (primary) hypertension; M54.5 Low back pain; R60.0 Localized edema; W06.XXXA Fall from bed, initial encounter; Y92.230 Patient room in hospital as the place of occurrence of the external cause; B95.2 Enterococcus as the cause of diseases classified elsewhere; B95.3 Streptococcus pneumoniae as the cause of diseases classified elsewhere
CPT/HCPCS: 36415; 36600; 71010; 71250; 73560; 80053; 80061; 81001; 82550; 82553; 82803; 83605; 83735; 84484; 85025; 85610; 85730; 87040; 87070; 87077; 87186; 87205; 87502; 93005; 93010; 94640; 94760; A4222; G0378; J1450; J1940; J1956; J2020; J2405; J2543; J2930; J7608; J7626

== ENCOUNTER → 2017-09-03 | Outpatient (CLI) | payer OTHER, MEDICAID ==
[2017-08-20 13:11] VITALS: BP 111/46
== END ==
LOC: LAB 08:30
PROVIDERS: ATTEND Nurse Practitioner Family
DX: R78.81 Bacteremia (principal)
CPT/HCPCS: 36415; 87040

== ENCOUNTER 2017-10-30 12:26 | Inpatient (IN) | payer OTHER, MEDICAID ==
--- NOTE | 2017-10-30 12:55 | DR.H&P ---
H&P - History & Physical for Day of: H&P Date: 10/30/17 - Chief Complaint Chief Complaint: COUGH, WHEEZING, SOB - Allergies Allergies/Adverse Reactions: Allergies Allergy/AdvReac Type Severity Reaction Status Date / Time azithromycin [From Zithromax] Allergy Verified 08/12/17 10:25 morphine Allergy Verified 08/12/17 10:25 nitrofurantoin Allergy Verified 08/12/17 10:25 [From Macrodantin] Sulfa (Sulfonamide Allergy Verified 08/12/17 10:25 Antibiotics) [SULFA] - History of Present Illness History of Present Illness: patient is a 67-year-old white female who was admitted direct admit from Dr. Cochran's office after failing to improve with outpatient therapy for symptoms of acute bronchitis/pneumonia. Patient had a positive swab for RSV. Patient has been on by mouth Levaquin as well as oral steroids and received 3 IM injections of Rocephin prior to admission. Patient continues to have diffuse wheezing and chest congestion and shortness of breath. Patient has a past medical history of COPD, CHF, hypertension, CAD, arthritis and GERD. Plan admit patient for pneumonia protocol, IV antibiotics and IV steroids. - Past Medical History Past Medical History: Angina, Arthritis, Asthma, COPD, Dyslipidemia, Hypertension, Sleep Apnea - Past Surgical History Surgical History: , Cholecystectomy, Joint Replacement, Ortho Surgery, Other - Family History Family Medical History: Diabetes Mellitus, [place], Hypertension - Social History Does patient currently use any type of tobacco product: No Have you used tobacco products in the last 12 months: No Type of Tobacco Use: None Does any household member use tobacco: No Alcohol Use: None Drug Use: None - Review of Systems Constitutional: Fever, Weakness Eyes: No Symptoms Reported ENT: Nose Discharge, Nose Congestion, Throat Pain Respiratory: Cough, Shortness of Breath, Wheezing Gastrointestinal: Nausea Genitourinary: No Symptoms Reported Musculoskeletal: Back Pain, Leg Pain Skin: No Symptoms Reported Neurological: No Symptoms Reported - Physical Exam Vital Signs: Blood Pressure [Left Arm] 111/46 Blood Pressure [Right Arm] 128/63 Blood Pressure 111/46 Eyes: Normal Ear: Normal Nose: Normal Throat: Normal Respiratory: Wheezes Throughout, RLL Diminished, LLL Diminished Cardiovascular: Normal : Normal Auscultation: Bowel Sounds: Normal Palpation: Normal Tenderness: Normal Skin: Normal Musculoskeletal: Back:Lumbar Psychiatric: Anxiety Mood Description: Calm Speech Pattern: Clear, Appropriate - Assessment/Plan (1) Acute bronchitis with chronic obstructive pulmonary disease (COPD) Status: Acute Plan: ADMIT, PNEUMONIA PATHWAY. BLOOD AND SPUTUM CULTURES, IV ATBX, RESP THERAPY. SUPPLEMENTAL O2, IV HYDRATION. RESUME HOME MEDS (2) RSV (respiratory syncytial virus infection) Status: Acute (3) SOB (shortness of breath) Status: Acute (4) Arthritis Status: Chronic (5) CAD (coronary artery disease) Status: Chronic (6) Hypertension Status: Chronic
[2017-10-30] MEDS ORDERED: NS 1/2 1000 ML IV 1,000 ML IV ONE (14:47)
[2017-10-30 14:55] LABS: BASOPHILS % (AUTO) 0.4 % (0.2-1.0); HEMATOCRIT 36.6 % (36.0-47.0); HEMOGLOBIN 12.1 g/dL (12.0-16.0); LYMPHOCYTES # (AUTO) 1.2 X10^3/uL (1.3-2.9); LYMPHOCYTES % (AUTO) 27.4 % (21.0-51.0); MEAN CORPUSCULAR HEMOGLOBIN 27.6 pg (27.0-34.0); MEAN CORPUSCULAR VOLUME 83.6 fL (80.0-100.0); MEAN PLATELET VOLUME 8.1 fL (7.4-11.0); MONOCYTES # (AUTO) 0.5 x10^3/uL (0.3-0.8); NEUTROPHILS # (AUTO) 2.6 x10^3/uL (2.2-4.8); NEUTROPHILS % (AUTO) 61.2 % (42.0-75.0); PLATELET COUNT 264 X10^3/uL (150.0-450.0); RED BLOOD COUNT 4.37 X10^6/uL (3.5-5.4); RED CELL DISTRIBUTION WIDTH 15.7 % (11.6-16.5); WHITE BLOOD COUNT 4.2 X10^3/uL (3.6-10.0)
[2017-10-30 14:56] VITALS: BMI 48.4
[2017-10-30 15:08] LABS: ALANINE AMINOTRANSFERASE 21 Units/L (12-78); ALBUMIN 3.2 g/dL (3.4-5.0); ALKALINE PHOSPHATASE 91 Units/L (46-116); ASPARTATE AMINO TRANSFERASE 22 Units/L (15-37); BLOOD UREA NITROGEN 15 mg/dL (7-18); CALCIUM 8.6 mg/dL (8.5-10.1); CARBON DIOXIDE 30.8 mmol/L (21-32); CHLORIDE 103 mmol/L (98-107); COR CA(FOR HYPOALB) 9.2 mg/dL (8.5-10.1); COR NA(FOR HYPERGLY) 142 mmol/L (136-145); CREATININE 0.92 mg/dL (0.55-1.02); SODIUM 141 mmol/L (136-145); TOTAL PROTEIN 6.8 g/dL (6.4-8.2); eGFR BLACK RACES > 60 (>60); eGFR NON BLACK RACES > 60 (>60)
[2017-10-30] MEDS: LEVAQUIN PREMIX IV 750 MG 750 MG/150 ML BAG IV SCH (15:14)
[2017-10-30] MEDS: SOLU-Medrol 125 MG VIAL IVP SCH ×2 (15:15→21:00)
[2017-10-30] MEDS: NS 1/2 1000 ML IV 1,000 ML IV SCH (15:15)
[2017-10-30] MEDS ORDERED: SALINE 3% 15 ML NEB TX ONE (15:16)
[2017-10-30] MEDS ORDERED: SALINE 3% 15 ML NEB TX NEB ONE (15:19)
[2017-10-30] MEDS ORDERED: XOPENEX 1.25 MG/3 ML NEBULE NEB PRN (15:21)
--- NOTE | 2017-10-30 15:25 | RAD ---
HISTORY: Pneumonia, COPD, and shortness of breath. Study: PA and lateral chest. Comparison: Chest x-ray dated August 16, 2017. Findings: The trachea is midline. The cardiac silhouette is unremarkable. Stable appearance of a right chest P ort-A-Cath. Chronic emphysematous changes. No obvious focal consolidation, pleural effusion, or pneu mothorax.. The bony thorax is unremarkable. IMPRESSION: No acute cardiopulmonary disease. Reported By:
[2017-10-30] MEDS ORDERED: XOPENEX 1.25 MG/3 ML NEBULE NEB SCH (15:30)
[2017-10-30] MEDS: XOPENEX 1.25 MG/3 ML NEBULE NEB SCH ×2 (16:18→20:15)
[2017-10-30] MEDS: ROBITUSSIN DM PO SCH ×2 (18:54→20:54)
[2017-10-30] MEDS: PULMICORT NEB TX 0.5 MG NEB SCH (20:16)
[2017-10-30] MEDS: BROVANA NEB SCH (20:16)
[2017-10-30] MEDS: NORCO 5/325 MG TAB PO PRN (20:54)
[2017-10-30] MEDS: TUSSIONEX PENNKINETIC SUSP PO PRN (20:58)
[2017-10-31] MEDS ORDERED: NS 1/2 1000 ML IV 1,000 ML IV ONE (05:26)
[2017-10-31] MEDS: NORCO 5/325 MG TAB PO PRN (05:43)
[2017-10-31] MEDS: SOLU-Medrol 125 MG VIAL IVP SCH (05:43)
[2017-10-31] MEDS: NS 1/2 1000 ML IV 1,000 ML IV SCH ×2 (05:44→20:33)
[2017-10-31 06:20] LABS: ALANINE AMINOTRANSFERASE 22 Units/L (12-78); ALBUMIN 2.9 g/dL (3.4-5.0); ALKALINE PHOSPHATASE 86 Units/L (46-116); ASPARTATE AMINO TRANSFERASE 19 Units/L (15-37); BLOOD UREA NITROGEN 20 mg/dL (7-18); CALCIUM 8.5 mg/dL (8.5-10.1); CARBON DIOXIDE 30.2 mmol/L (21-32); CHLORIDE 103 mmol/L (98-107); COR CA(FOR HYPOALB) 9.4 mg/dL (8.5-10.1); COR NA(FOR HYPERGLY) 141 mmol/L (136-145); SODIUM 140 mmol/L (136-145); TOTAL PROTEIN 6.3 g/dL (6.4-8.2); eGFR BLACK RACES > 60 (>60); eGFR NON BLACK RACES > 60 (>60)
[2017-10-31 06:42] LABS: BASOPHILS % (AUTO) 0.1 % (0.2-1.0); HEMATOCRIT 35.8 % (36.0-47.0); HEMOGLOBIN 11.7 g/dL (12.0-16.0); LYMPHOCYTES # (AUTO) 0.8 X10^3/uL (1.3-2.9); LYMPHOCYTES % (AUTO) 28.9 % (21.0-51.0); MEAN CORPUSCULAR HEMOGLOBIN 27.5 pg (27.0-34.0); MEAN CORPUSCULAR HGB CONC 32.8 g/dL (33.0-35.0); MEAN CORPUSCULAR VOLUME 83.6 fL (80.0-100.0); MEAN PLATELET VOLUME 8.5 fL (7.4-11.0); MONOCYTES # (AUTO) 0.1 x10^3/uL (0.3-0.8); MONOCYTES % (AUTO) 3.6 % (0.0-13.0); NEUTROPHILS # (AUTO) 1.8 x10^3/uL (2.2-4.8); NEUTROPHILS % (AUTO) 67.4 % (42.0-75.0); PLATELET COUNT 243 X10^3/uL (150.0-450.0); RED BLOOD COUNT 4.27 X10^6/uL (3.5-5.4); RED CELL DISTRIBUTION WIDTH 15.4 % (11.6-16.5); WHITE BLOOD COUNT 2.6 X10^3/uL (3.6-10.0)
[2017-10-31] MEDS ORDERED: XOPENEX 1.25 MG/3 ML NEBULE NEB PRN (08:14)
[2017-10-31] MEDS ORDERED: [UNRECOGNIZED DRUG - OTHER] PO PRN (08:14)
[2017-10-31] MEDS ORDERED: ACETAMINOPHEN PO PRN (08:14)
[2017-10-31] MEDS ORDERED: OXYCODONE HCL PO PRN (08:14)
[2017-10-31] MEDS: XOPENEX 1.25 MG/3 ML NEBULE NEB SCH ×4 (08:38→20:41)
[2017-10-31] MEDS: BROVANA NEB SCH ×2 (08:38→20:41)
[2017-10-31] MEDS: PULMICORT NEB TX 0.5 MG NEB SCH ×2 (08:38→20:41)
[2017-10-31] MEDS ORDERED: DILTIAZEM HCL PO SCH (09:00)
[2017-10-31] MEDS: LEVAQUIN PREMIX IV 750 MG 750 MG/150 ML BAG IV SCH (10:38)
[2017-10-31] MEDS: COLACE CAP 100 MG PO SCH (10:38)
[2017-10-31] MEDS: LASIX PO SCH (10:38)
[2017-10-31] MEDS: ASPIRIN PO SCH (10:38)
[2017-10-31] MEDS: K-DUR TAB 20 MEQ PO SCH (10:38)
[2017-10-31] MEDS: NEURONTIN CAP 100 MG PO SCH (10:39)
[2017-10-31] MEDS: ROBITUSSIN DM PO SCH ×4 (10:39→20:25)
[2017-10-31] MEDS: ZESTRIL TAB 10 MG PO SCH (10:39)
[2017-10-31] MEDS: TOPROL XL PO SCH (10:39)
[2017-10-31] MEDS: CARDIZEM SR 120 MG PO SCH (10:42)
[2017-10-31] MEDS: ATARAX TAB 25 MG PO PRN ×2 (14:36→20:26)
[2017-10-31] MEDS: PERCOCET TAB 5/325 MG PO PRN ×2 (14:36→20:26)
--- NOTE | 2017-10-31 14:52 | PCM.PROG ---
Progress Note - Progress Note for Day of Date: 10/31/17 - Subjective Subjective: patient is a 67-year-old white female who was admitted one day ago with acute bronchitis with COPD failed outpatient treatment. Patient complains of restless last night and feels like it is related to IV steroids. Patient continues with diffuse expiratory wheezing and mild inspiratory wheezing with persistent cough. Plan to continue IV antibiotics respiratory therapy blood cultures collected on admission pending we'll repeat a.m. labs and a chest x- ray. - Past Medical Family Social History Past Med/Fam/Surg Hx: No changes since H&P Allergies: Allergies azithromycin [From Zithromax] Allergy (Verified 10/30/17 14:21) morphine Allergy (Verified 10/30/17 14:21) nitrofurantoin [From Macrodantin] Allergy (Verified 10/30/17 14:21) Sulfa (Sulfonamide Antibiotics) [SULFA] Allergy (Verified 10/30/17 14:21) - Vital Signs and I&O's Vital Signs: Temperature 97.9 F Pulse Rate [Right Brachial] 76 Pulse Rate [Left Brachial] 20 Pulse Rate 71 Respiratory Rate 22 Blood Pressure [Left Arm] 168/79 Blood Pressure [Right Arm] 135/69 Blood Pressure 111/46 O2 Sat by Pulse Oximetry 96 Intake and Output: Intake & Output 10/29/17 10/30/17 10/31/17 11/01/17 11:59 11:59 11:59 11:59 Intake Total 2660 Balance 2660 - Physical Exam Eyes: Normal Ear: Normal Nose: Normal Throat: Normal Respiratory: Wheezes, Rhonchi Cardiovascular: Normal : Normal Auscultation: Bowel Sounds: Normal Tenderness: Normal Skin: Normal Musculoskeletal: Back:Lumbar Psychiatric: Anxiety Mood Description: Calm Speech Pattern: Clear, Appropriate - Laboratory and Diagnostics Result Diagrams: 10/31/17 05:16 10/31/17 05:16 Labs: 10/30/17 20:42 Sputum - Expectorated Sputum - Final Laboratory WBC 2.6 X10^3/uL (3.6-10.0) L 10/31/17 05:16 RBC 4.27 X10^6/uL (3.5-5.4) 10/31/17 05:16 Hgb 11.7 g/dL (12.0-16.0) L 10/31/17 05:16 Hct 35.8 % (36.0-47.0) L 10/31/17 05:16 MCV 83.6 fL (80.0-100.0) 10/31/17 05:16 MCH 27.5 pg (27.0-34.0) 10/31/17 05:16 MCHC 32.8 g/dL (33.0-35.0) L 10/31/17 05:16 RDW 15.4 % (11.6-16.5) 10/31/17 05:16 Plt Count 243 X10^3/uL (150.0-450.0) 10/31/17 05:16 MPV 8.5 fL (7.4-11.0) 10/31/17 05:16 Neut % 67.4 % (42.0-75.0) 10/31/17 05:16 Lymph % 28.9 % (21.0-51.0) 10/31/17 05:16 [place] % 3.6 % (0.0-13.0) 10/31/17 05:16 Eos % 0.0 % (0.9-2.9) L 10/31/17 05:16 Baso % 0.1 % (0.2-1.0) L 10/31/17 05:16 Neut # 1.8 x10^3/uL (2.2-4.8) L 10/31/17 05:16 Lymph # 0.8 X10^3/uL (1.3-2.9) L 10/31/17 05:16 [place] # 0.1 x10^3/uL (0.3-0.8) L 10/31/17 05:16 Eos # 0.0 x10^3/uL (0.0-0.2) 10/31/17 05:16 Baso # 0.0 X10^3/uL (0.0-0.1) 10/31/17 05:16 Absolute Nucleated RBC 0.1 /100WBC 10/31/17 05:16 Sodium 140 mmol/L (136-145) 10/31/17 05:16 Corrected Sodium 141 mmol/L (136-145) 10/31/17 05:16 Potassium 3.9 mmol/L (3.5-5.1) 10/31/17 05:16 Chloride 103 mmol/L (98-107) 10/31/17 05:16 Carbon Dioxide 30.2 mmol/L (21-32) 10/31/17 05:16 BUN 20 mg/dL (7-18) H 10/31/17 05:16 Creatinine 0.90 mg/dL (0.55-1.02) 10/31/17 05:16 Est GFR (MDRD) Af Amer > 60 (>60) 10/31/17 05:16 Est GFR (MDRD) Non-Af > 60 (>60) 10/31/17 05:16 Glucose 162 mg/dL (65-99) H 10/31/17 05:16 Calcium 8.5 mg/dL (8.5-10.1) 10/31/17 05:16 Corrected Calcium 9.4 mg/dL (8.5-10.1) 10/31/17 05:16 Total Bilirubin 0.20 mg/dL (0.2-1.0) 10/31/17 05:16 AST 19 Units/L (15-37) 10/31/17 05:16 ALT 22 Units/L (12-78) 10/31/17 05:16 Alkaline Phosphatase 86 Units/L (46-116) 10/31/17 05:16 Total Protein 6.3 g/dL (6.4-8.2) L 10/31/17 05:16 Albumin 2.9 g/dL (3.4-5.0) L 10/31/17 05:16 Globulin 3.4 g/dL (2.5-4.5) 10/31/17 05:16 Albumin/Globulin Ratio 0.9 Ratio (1.1-2.1) L 10/31/17 05:16 - Plan (1) Acute bronchitis with chronic obstructive pulmonary disease (COPD) Status: Acute Plan: CONTINUE PNEUMONIA PATHWAY. BLOOD AND SPUTUM CULTURES COLLECTED ON ADMISSION, IV ATBX, RESP THERAPY. SUPPLEMENTAL O2, IV HYDRATION. CONTINUE BP MONITORING, ENCOURAGE PULMONARY TOILETING (2) RSV (respiratory syncytial virus infection) Status: Acute (3) SOB (shortness of breath) Status: Acute (4) Arthritis Status: Chronic (5) CAD (coronary artery disease) Status: Chronic (6) Hypertension Status: Chronic
[2017-10-31] MEDS: TUSSIONEX PENNKINETIC SUSP PO PRN (16:22)
[2017-10-31] MEDS: PROTONIX INJ 40 MG VIAL IVP SCH (16:22)
[2017-10-31] MEDS: ZOCOR TAB 40 MG PO SCH (20:26)
[2017-10-31] MEDS ORDERED: SIMVASTATIN 80 MG PO SCH (21:00)
[2017-10-31] MEDS: ZOFRAN INJ 4 MG VIAL IVP PRN (22:35)
[2017-11-01] MEDS ORDERED: NS 1/2 1000 ML IV 1,000 ML IV ONE ×2 (05:48→21:14)
[2017-11-01 06:06] LABS: ALANINE AMINOTRANSFERASE 21 Units/L (12-78); ALBUMIN 2.7 g/dL (3.4-5.0); ALKALINE PHOSPHATASE 78 Units/L (46-116); ASPARTATE AMINO TRANSFERASE 15 Units/L (15-37); BASOPHILS % (AUTO) 0.1 % (0.2-1.0); BLOOD UREA NITROGEN 19 mg/dL (7-18); CALCIUM 8.7 mg/dL (8.5-10.1); CARBON DIOXIDE 31.4 mmol/L (21-32); CHLORIDE 104 mmol/L (98-107); COR CA(FOR HYPOALB) 9.7 mg/dL (8.5-10.1); COR NA(FOR HYPERGLY) 143 mmol/L (136-145); CREATININE 0.91 mg/dL (0.55-1.02); HEMATOCRIT 35.5 % (36.0-47.0); HEMOGLOBIN 11.6 g/dL (12.0-16.0); LYMPHOCYTES # (AUTO) 1.1 X10^3/uL (1.3-2.9); LYMPHOCYTES % (AUTO) 20.2 % (21.0-51.0); MEAN CORPUSCULAR HEMOGLOBIN 27.4 pg (27.0-34.0); MEAN CORPUSCULAR HGB CONC 32.7 g/dL (33.0-35.0); MEAN CORPUSCULAR VOLUME 83.8 fL (80.0-100.0); MEAN PLATELET VOLUME 8.5 fL (7.4-11.0); MONOCYTES # (AUTO) 0.5 x10^3/uL (0.3-0.8); MONOCYTES % (AUTO) 9.9 % (0.0-13.0); NEUTROPHILS # (AUTO) 3.9 x10^3/uL (2.2-4.8); NEUTROPHILS % (AUTO) 69.8 % (42.0-75.0); PLATELET COUNT 245 X10^3/uL (150.0-450.0); RED BLOOD COUNT 4.24 X10^6/uL (3.5-5.4); RED CELL DISTRIBUTION WIDTH 15.8 % (11.6-16.5); SODIUM 142 mmol/L (136-145); TOTAL PROTEIN 6.1 g/dL (6.4-8.2); WHITE BLOOD COUNT 5.5 X10^3/uL (3.6-10.0); eGFR BLACK RACES > 60 (>60); eGFR NON BLACK RACES > 60 (>60)
[2017-11-01] MEDS: TUSSIONEX PENNKINETIC SUSP PO PRN ×2 (06:15→21:08)
[2017-11-01] MEDS: PERCOCET TAB 5/325 MG PO PRN ×3 (06:15→21:51)
[2017-11-01] MEDS: LEVAQUIN PREMIX IV 750 MG 750 MG/150 ML BAG IV SCH (08:54)
[2017-11-01] MEDS: CARDIZEM SR 120 MG PO SCH (08:55)
[2017-11-01] MEDS: PROTONIX INJ 40 MG VIAL IVP SCH (08:55)
[2017-11-01] MEDS: TOPROL XL PO SCH (08:55)
[2017-11-01] MEDS: K-DUR TAB 20 MEQ PO SCH (08:55)
[2017-11-01] MEDS: ROBITUSSIN DM PO SCH ×4 (08:55→21:07)
[2017-11-01] MEDS: COLACE CAP 100 MG PO SCH (08:55)
[2017-11-01] MEDS: NEURONTIN CAP 100 MG PO SCH (08:56)
[2017-11-01] MEDS: ASPIRIN PO SCH (08:56)
[2017-11-01] MEDS: ZESTRIL TAB 10 MG PO SCH (08:56)
[2017-11-01] MEDS: LASIX PO SCH (08:56)
[2017-11-01] MEDS: BROVANA NEB SCH (09:56)
[2017-11-01] MEDS: XOPENEX 1.25 MG/3 ML NEBULE NEB SCH ×3 (09:56→16:33)
[2017-11-01] MEDS: PULMICORT NEB TX 0.5 MG NEB SCH (09:56)
[2017-11-01] MEDS: ATARAX TAB 25 MG PO PRN ×2 (10:44→21:07)
[2017-11-01] MEDS: NS 1/2 1000 ML IV 1,000 ML IV SCH ×3 (12:15→23:25)
--- NOTE | 2017-11-01 12:29 | RAD ---
HISTORY: Shortness of breath Study: Chest AP portable Comparison: 10/30/2017 Findings: There is a port present on the right. The heart is enlarged. No congestive heart failure is noted. No acute alveolar infiltrates or pleural effusions are identified. The bony thorax is unremarkable. IMPRESSION: Mild cardiomegaly without congestive heart failure No infiltrates Reported By:
[2017-11-01] MEDS ORDERED: XOPENEX 1.25 MG/3 ML NEBULE NEB SCH (21:00)
[2017-11-01] MEDS: LASIX IVP SCH (21:04)
[2017-11-01] MEDS: ZOCOR TAB 40 MG PO SCH (21:07)
[2017-11-01 21:49] LABS: RSV AG DETECTION NEGATIVE (NEGATIVE)
[2017-11-02] MEDS: BROVANA NEB SCH ×3 (00:19→20:36)
[2017-11-02] MEDS: XOPENEX 1.25 MG/3 ML NEBULE NEB SCH ×6 (00:19→20:36)
[2017-11-02] MEDS: PULMICORT NEB TX 0.5 MG NEB SCH ×3 (00:20→20:37)
[2017-11-02] MEDS ORDERED: ROBITUSSIN DM PO ONE (02:30)
[2017-11-02 06:52] LABS: BASOPHILS % (AUTO) 0.1 % (0.2-1.0); HEMATOCRIT 35.2 % (36.0-47.0); HEMOGLOBIN 11.4 g/dL (12.0-16.0); LYMPHOCYTES # (AUTO) 3.1 X10^3/uL (1.3-2.9); LYMPHOCYTES % (AUTO) 35.3 % (21.0-51.0); MEAN CORPUSCULAR HEMOGLOBIN 27.4 pg (27.0-34.0); MEAN CORPUSCULAR HGB CONC 32.5 g/dL (33.0-35.0); MEAN CORPUSCULAR VOLUME 84.4 fL (80.0-100.0); MEAN PLATELET VOLUME 8.2 fL (7.4-11.0); MONOCYTES # (AUTO) 0.9 x10^3/uL (0.3-0.8); MONOCYTES % (AUTO) 9.8 % (0.0-13.0); NEUTROPHILS # (AUTO) 4.8 x10^3/uL (2.2-4.8); NEUTROPHILS % (AUTO) 54.8 % (42.0-75.0); PLATELET COUNT 233 X10^3/uL (150.0-450.0); RED BLOOD COUNT 4.17 X10^6/uL (3.5-5.4); RED CELL DISTRIBUTION WIDTH 15.5 % (11.6-16.5); WHITE BLOOD COUNT 8.7 X10^3/uL (3.6-10.0)
[2017-11-02 07:13] LABS: ALANINE AMINOTRANSFERASE 22 Units/L (12-78); ALBUMIN 2.6 g/dL (3.4-5.0); ALKALINE PHOSPHATASE 71 Units/L (46-116); ASPARTATE AMINO TRANSFERASE 16 Units/L (15-37); BLOOD UREA NITROGEN 21 mg/dL (7-18); CALCIUM 7.9 mg/dL (8.5-10.1); CARBON DIOXIDE 33.6 mmol/L (21-32); CHLORIDE 105 mmol/L (98-107); CREATININE 0.92 mg/dL (0.55-1.02); SODIUM 144 mmol/L (136-145); TOTAL PROTEIN 5.7 g/dL (6.4-8.2); eGFR BLACK RACES > 60 (>60); eGFR NON BLACK RACES > 60 (>60)
[2017-11-02] MEDS: ASPIRIN PO SCH (08:45)
[2017-11-02] MEDS: K-DUR TAB 20 MEQ PO SCH (08:46)
[2017-11-02] MEDS: TOPROL XL PO SCH (08:46)
[2017-11-02] MEDS: CARDIZEM SR 120 MG PO SCH (08:47)
[2017-11-02] MEDS: PERCOCET TAB 5/325 MG PO PRN ×2 (08:47→21:20)
[2017-11-02] MEDS: ZESTRIL TAB 10 MG PO SCH (08:47)
[2017-11-02] MEDS: LEVAQUIN PREMIX IV 750 MG 750 MG/150 ML BAG IV SCH (08:47)
[2017-11-02] MEDS: NEURONTIN CAP 100 MG PO SCH (08:47)
[2017-11-02] MEDS: PROTONIX INJ 40 MG VIAL IVP SCH (08:48)
[2017-11-02] MEDS: COLACE CAP 100 MG PO SCH (08:48)
[2017-11-02] MEDS: LASIX IVP SCH (08:48)
[2017-11-02] MEDS: ROBITUSSIN DM PO SCH ×4 (08:48→21:14)
[2017-11-02] MEDS: LASIX PO SCH (08:49)
--- NOTE | 2017-11-02 09:36 | RAD ---
HISTORY: Congestion and cough. Dyspnea. Single-view of the chest. Comparison: 11/01/2017. Findings: The trachea is midline. The cardiac silhouette is unremarkable. There are increased perihilar inter stitial opacities seen, compatible with central bronchitis. The lungs are otherwise clear without foc al infiltrate or effusion. The bony thorax is unremarkable. Stable CVL. IMPRESSION: Radiographic findings suggesting bronchitis. No lobar pneumonia or effusion seen. Reported By:
[2017-11-02] MEDS ORDERED: LIBRAX PO PRN (12:02)
[2017-11-02] MEDS ORDERED: PREPARATION H OINT RECTAL PRN (12:02)
[2017-11-02] MEDS: TAMIFLU PO SCH ×2 (13:26→21:14)
[2017-11-02] MEDS: NS 1/2 1000 ML IV 1,000 ML IV SCH ×2 (13:30→17:25)
[2017-11-02] MEDS: ZOFRAN INJ 4 MG VIAL IVP PRN (14:48)
[2017-11-02] MEDS ORDERED: NS 1/2 1000 ML IV 1,000 ML IV ONE (17:18)
[2017-11-02] MEDS: ZOCOR TAB 40 MG PO SCH (21:15)
[2017-11-02] MEDS: ATARAX TAB 25 MG PO PRN (21:20)
[2017-11-03] MEDS ORDERED: NS 1/2 1000 ML IV 1,000 ML IV ONE (04:42)
[2017-11-03] MEDS: NS 1/2 1000 ML IV 1,000 ML IV SCH ×2 (04:53→17:08)
[2017-11-03 06:16] LABS: BASOPHILS % (AUTO) 0.2 % (0.2-1.0); EOSINOPHILS % (AUTO) 0.3 % (0.9-2.9); HEMATOCRIT 33.2 % (36.0-47.0); HEMOGLOBIN 10.9 g/dL (12.0-16.0); LYMPHOCYTES # (AUTO) 3.4 X10^3/uL (1.3-2.9); LYMPHOCYTES % (AUTO) 33.8 % (21.0-51.0); MEAN CORPUSCULAR HEMOGLOBIN 27.7 pg (27.0-34.0); MEAN CORPUSCULAR VOLUME 83.9 fL (80.0-100.0); MEAN PLATELET VOLUME 8.7 fL (7.4-11.0); MONOCYTES # (AUTO) 0.7 x10^3/uL (0.3-0.8); MONOCYTES % (AUTO) 7.2 % (0.0-13.0); NEUTROPHILS # (AUTO) 5.8 x10^3/uL (2.2-4.8); NEUTROPHILS % (AUTO) 58.5 % (42.0-75.0); PLATELET COUNT 221 X10^3/uL (150.0-450.0); RED BLOOD COUNT 3.95 X10^6/uL (3.5-5.4); RED CELL DISTRIBUTION WIDTH 15.7 % (11.6-16.5)
[2017-11-03 07:09] LABS: ALANINE AMINOTRANSFERASE 16 Units/L (12-78); ALBUMIN 2.2 g/dL (3.4-5.0); ALKALINE PHOSPHATASE 67 Units/L (46-116); ASPARTATE AMINO TRANSFERASE 14 Units/L (15-37); BLOOD UREA NITROGEN 17 mg/dL (7-18); CALCIUM 7.8 mg/dL (8.5-10.1); CARBON DIOXIDE 32.4 mmol/L (21-32); CHLORIDE 103 mmol/L (98-107); COR CA(FOR HYPOALB) 9.2 mg/dL (8.5-10.1); CREATININE 0.91 mg/dL (0.55-1.02); SODIUM 142 mmol/L (136-145); TOTAL PROTEIN 5.2 g/dL (6.4-8.2); eGFR BLACK RACES > 60 (>60); eGFR NON BLACK RACES > 60 (>60)
--- NOTE | 2017-11-03 07:21 | RAD ---
The examination: AP chest History: Cough Comparison 11/02/2017 Findings: Continued normal heart size with clear right chest. Increasing density in the retrocardiac left lower lung with obscuration of diaphragm. No pneumothorax seen. Impression: Findings suggest a developing infiltrate or atelectasis in the left lower lobe. Reported By:
[2017-11-03] MEDS: ASPIRIN PO SCH (08:56)
[2017-11-03] MEDS: LEVAQUIN PREMIX IV 750 MG 750 MG/150 ML BAG IV SCH (08:57)
[2017-11-03] MEDS: COLACE CAP 100 MG PO SCH (08:57)
[2017-11-03] MEDS: NEURONTIN CAP 100 MG PO SCH (08:57)
[2017-11-03] MEDS: LASIX PO SCH (08:57)
[2017-11-03] MEDS: PROTONIX INJ 40 MG VIAL IVP SCH (08:57)
[2017-11-03] MEDS: CARDIZEM SR 120 MG PO SCH (08:57)
[2017-11-03] MEDS: K-DUR TAB 20 MEQ PO SCH (08:57)
[2017-11-03] MEDS: TAMIFLU PO SCH ×2 (08:58→21:04)
[2017-11-03] MEDS: ROBITUSSIN DM PO SCH ×4 (08:58→21:04)
[2017-11-03] MEDS: TOPROL XL PO SCH (08:58)
[2017-11-03] MEDS ORDERED: TUCKS MEDICATED PAD EXT PRN (08:58)
[2017-11-03] MEDS: ZESTRIL TAB 10 MG PO SCH (08:58)
[2017-11-03] MEDS ORDERED: EMLA CREAM TOP PRN (09:08)
[2017-11-03] MEDS: PULMICORT NEB TX 0.5 MG NEB SCH ×2 (09:10→20:55)
[2017-11-03] MEDS: BROVANA NEB SCH ×2 (09:10→20:54)
[2017-11-03] MEDS: XOPENEX 1.25 MG/3 ML NEBULE NEB SCH ×4 (09:10→20:54)
[2017-11-03] MEDS: ATARAX TAB 25 MG PO PRN ×2 (09:37→21:09)
[2017-11-03] MEDS: PERCOCET TAB 5/325 MG PO PRN ×2 (14:20→21:05)
[2017-11-03] MEDS ORDERED: POTASSIUM CHL 60 MEQ/NS 0.45% 500 ML IV PRN (15:27)
[2017-11-03] MEDS ORDERED: K-LYTE EFFERVESCENT PO PRN (15:27)
[2017-11-03] MEDS ORDERED: POTASSIUM CHLORIDE LIQ 20 MEQ UDC PO PRN (15:27)
[2017-11-03] MEDS ORDERED: POTASSIUM CHL 40 MEQ/NS 0.45% 500 ML IV PRN (15:27)
[2017-11-03] MEDS ORDERED: K-RIDER 10 MEQ/NS 100 ML 10 MEQ/100 ML BAG IV PRN (15:27)
[2017-11-03] MEDS: BENTYL CAP 10 MG PO PRN (17:59)
[2017-11-03] MEDS: ZOCOR TAB 40 MG PO SCH (21:05)
[2017-11-04] MEDS: PERCOCET TAB 5/325 MG PO PRN ×2 (03:01→20:22)
[2017-11-04] MEDS: BENTYL CAP 10 MG PO PRN ×2 (03:02→08:47)
[2017-11-04] MEDS: ZOFRAN INJ 4 MG VIAL IVP PRN ×2 (04:59→22:35)
[2017-11-04 05:26] LABS: BASOPHILS % (AUTO) 0.1 % (0.2-1.0); EOSINOPHILS # (AUTO) 0.1 x10^3/uL (0.0-0.2); EOSINOPHILS % (AUTO) 1.2 % (0.9-2.9); HEMATOCRIT 30.8 % (36.0-47.0); HEMOGLOBIN 10.2 g/dL (12.0-16.0); LYMPHOCYTES # (AUTO) 3.1 X10^3/uL (1.3-2.9); LYMPHOCYTES % (AUTO) 31.9 % (21.0-51.0); MEAN CORPUSCULAR HEMOGLOBIN 27.6 pg (27.0-34.0); MEAN CORPUSCULAR VOLUME 83.5 fL (80.0-100.0); MEAN PLATELET VOLUME 8.5 fL (7.4-11.0); MONOCYTES # (AUTO) 0.7 x10^3/uL (0.3-0.8); MONOCYTES % (AUTO) 6.9 % (0.0-13.0); NEUTROPHILS # (AUTO) 5.8 x10^3/uL (2.2-4.8); NEUTROPHILS % (AUTO) 59.9 % (42.0-75.0); PLATELET COUNT 195 X10^3/uL (150.0-450.0); RED BLOOD COUNT 3.69 X10^6/uL (3.5-5.4); RED CELL DISTRIBUTION WIDTH 15.9 % (11.6-16.5); WHITE BLOOD COUNT 9.6 X10^3/uL (3.6-10.0)
[2017-11-04 05:40] LABS: ALANINE AMINOTRANSFERASE 15 Units/L (12-78); ALBUMIN 2.1 g/dL (3.4-5.0); ALKALINE PHOSPHATASE 64 Units/L (46-116); ASPARTATE AMINO TRANSFERASE 11 Units/L (15-37); BLOOD UREA NITROGEN 13 mg/dL (7-18); CALCIUM 7.8 mg/dL (8.5-10.1); CARBON DIOXIDE 33.3 mmol/L (21-32); CHLORIDE 103 mmol/L (98-107); COR CA(FOR HYPOALB) 9.3 mg/dL (8.5-10.1); CREATININE 0.87 mg/dL (0.55-1.02); MAGNESIUM 1.8 mg/dL (1.7-2.9); SODIUM 139 mmol/L (136-145); TOTAL PROTEIN 5.1 g/dL (6.4-8.2); eGFR BLACK RACES > 60 (>60); eGFR NON BLACK RACES > 60 (>60)
--- NOTE | 2017-11-04 07:21 | RAD ---
History: Cough Study: Portable AP chest Comparison: Yesterday Findings: The heart size is normal and there is a Port-A-Cath via the right subclavian vein. The righ t lung remains grossly clear. There are linear oblique densities at the left lower lobe. There is no obvious effusion. Impression: Subsegmental atelectasis in the left lower lobe and/or lingula Reported By:
[2017-11-04] MEDS: LEVAQUIN PREMIX IV 750 MG 750 MG/150 ML BAG IV SCH (08:46)
[2017-11-04] MEDS: ZESTRIL TAB 10 MG PO SCH (08:47)
[2017-11-04] MEDS: TAMIFLU PO SCH ×2 (08:47→20:21)
[2017-11-04] MEDS: K-DUR TAB 20 MEQ PO SCH (08:47)
[2017-11-04] MEDS: CARDIZEM SR 120 MG PO SCH (08:47)
[2017-11-04] MEDS: ASPIRIN PO SCH (08:47)
[2017-11-04] MEDS: TOPROL XL PO SCH (08:47)
[2017-11-04] MEDS: COLACE CAP 100 MG PO SCH (08:47)
[2017-11-04] MEDS: NEURONTIN CAP 100 MG PO SCH (08:47)
[2017-11-04] MEDS: LASIX PO SCH (08:48)
[2017-11-04] MEDS: ROBITUSSIN DM PO SCH ×4 (08:50→20:23)
[2017-11-04] MEDS: PROTONIX INJ 40 MG VIAL IVP SCH (08:50)
[2017-11-04] MEDS: PULMICORT NEB TX 0.5 MG NEB SCH ×2 (09:00→20:42)
[2017-11-04] MEDS: XOPENEX 1.25 MG/3 ML NEBULE NEB SCH ×4 (09:00→20:42)
[2017-11-04] MEDS: BROVANA NEB SCH ×2 (09:00→20:42)
[2017-11-04] MEDS: BENTYL CAP 10 MG PO SCH ×3 (12:11→20:23)
[2017-11-04 13:02] LABS: BILIRUBIN,URINE NEGATIVE (NEGATIVE); BLOOD/HEMOGLOBIN,URINE NEGATIVE (NEGATIVE); GLUCOSE, URINE NEGATIVE (NEGATIVE); KETONES,URINE NEGATIVE (NEGATIVE); LEUKOCYTE ESTERASE ,URINE NEGATIVE (NEGATIVE); NITRITES,URINE NEGATIVE (NEGATIVE); PROTEIN,URINE NEGATIVE (NEGATIVE); UROBILINOGEN,URINE NORMAL (NORMAL)
[2017-11-04 13:08] LABS: APPEARANCE,URINE CLEAR (CLEAR); COLOR,URINE YELLOW (YELLOW); RBC,URINE 0 /HPF (NEGATIVE)
[2017-11-04 13:09] LABS: BACTERIA,URINE NEGATIVE /HPF (NEGATIVE); SQUAMOUS EPITHELIAL CELL,UR NEGATIVE /HPF (NEGATIVE)
[2017-11-04] MEDS: TUSSIONEX PENNKINETIC SUSP PO PRN (13:12)
[2017-11-04] MEDS ORDERED: NS 1/2 1000 ML IV 1,000 ML IV ONE (19:46)
[2017-11-04] MEDS: NS 1/2 1000 ML IV 1,000 ML IV SCH (20:20)
[2017-11-04] MEDS: ATARAX TAB 25 MG PO PRN (20:21)
[2017-11-04] MEDS: ZOCOR TAB 40 MG PO SCH (20:23)
[2017-11-05] MEDS: NS 1/2 1000 ML IV 1,000 ML IV SCH ×3 (03:44→20:41)
[2017-11-05] MEDS: PERCOCET TAB 5/325 MG PO PRN ×2 (05:15→20:30)
[2017-11-05 06:12] LABS: BASOPHILS % (AUTO) 0.1 % (0.2-1.0); EOSINOPHILS # (AUTO) 0.2 x10^3/uL (0.0-0.2); EOSINOPHILS % (AUTO) 2.5 % (0.9-2.9); HEMATOCRIT 29.2 % (36.0-47.0); HEMOGLOBIN 9.6 g/dL (12.0-16.0); LYMPHOCYTES # (AUTO) 2.8 X10^3/uL (1.3-2.9); LYMPHOCYTES % (AUTO) 37.2 % (21.0-51.0); MEAN CORPUSCULAR HEMOGLOBIN 27.5 pg (27.0-34.0); MEAN CORPUSCULAR VOLUME 83.3 fL (80.0-100.0); MEAN PLATELET VOLUME 8.7 fL (7.4-11.0); MONOCYTES # (AUTO) 0.7 x10^3/uL (0.3-0.8); MONOCYTES % (AUTO) 8.7 % (0.0-13.0); NEUTROPHILS # (AUTO) 3.9 x10^3/uL (2.2-4.8); NEUTROPHILS % (AUTO) 51.5 % (42.0-75.0); PLATELET COUNT 207 X10^3/uL (150.0-450.0); RED CELL DISTRIBUTION WIDTH 15.8 % (11.6-16.5); WHITE BLOOD COUNT 7.6 X10^3/uL (3.6-10.0)
[2017-11-05 06:27] LABS: ALANINE AMINOTRANSFERASE 13 Units/L (12-78); ALBUMIN 2.1 g/dL (3.4-5.0); ALKALINE PHOSPHATASE 62 Units/L (46-116); ASPARTATE AMINO TRANSFERASE 14 Units/L (15-37); BLOOD UREA NITROGEN 8 mg/dL (7-18); CALCIUM 8.2 mg/dL (8.5-10.1); CARBON DIOXIDE 32.7 mmol/L (21-32); CHLORIDE 103 mmol/L (98-107); COR CA(FOR HYPOALB) 9.7 mg/dL (8.5-10.1); CREATININE 0.86 mg/dL (0.55-1.02); SODIUM 139 mmol/L (136-145); TOTAL PROTEIN 5.3 g/dL (6.4-8.2); eGFR BLACK RACES > 60 (>60); eGFR NON BLACK RACES > 60 (>60)
--- NOTE | 2017-11-05 07:20 | RAD ---
History: Cough Study: Portable AP chest Comparison: Yesterday Findings: The heart size is normal. There is a Port-A-Cath from the right subclavian vein. The right lung remains clear. There is persistent subsegmental atelectasis at the left lung base. There is no o bvious effusion. Impression: Persistent subsegmental atelectasis at the left lung base Reported By:
[2017-11-05] MEDS: BENTYL CAP 10 MG PO SCH ×4 (08:15→20:32)
[2017-11-05] MEDS: TOPROL XL PO SCH (08:16)
[2017-11-05] MEDS: K-DUR TAB 20 MEQ PO SCH (08:16)
[2017-11-05] MEDS: ZESTRIL TAB 10 MG PO SCH (08:16)
[2017-11-05] MEDS: COLACE CAP 100 MG PO SCH (08:16)
[2017-11-05] MEDS: LASIX PO SCH (08:16)
[2017-11-05] MEDS: ASPIRIN PO SCH (08:16)
[2017-11-05] MEDS: TAMIFLU PO SCH ×2 (08:16→20:32)
[2017-11-05] MEDS: LEVAQUIN PREMIX IV 750 MG 750 MG/150 ML BAG IV SCH (08:17)
[2017-11-05] MEDS: PROTONIX INJ 40 MG VIAL IVP SCH (08:17)
[2017-11-05] MEDS: CARDIZEM SR 120 MG PO SCH (08:17)
[2017-11-05] MEDS: NEURONTIN CAP 100 MG PO SCH (08:17)
[2017-11-05] MEDS: ROBITUSSIN DM PO SCH ×4 (08:17→21:46)
[2017-11-05] MEDS: PULMICORT NEB TX 0.5 MG NEB SCH ×2 (08:58→21:38)
[2017-11-05] MEDS: XOPENEX 1.25 MG/3 ML NEBULE NEB SCH ×4 (08:58→21:38)
[2017-11-05] MEDS: BROVANA NEB SCH ×2 (09:40→21:38)
--- NOTE | 2017-11-05 13:20 | PCM.PROG ---
Progress Note - Progress Note for Day of Date: 11/04/17 - Subjective Subjective: patient is a 67-year-old white female who was admitted one day ago with acute bronchitis with COPD failed outpatient treatment. Patient complains of restless last night and feels like it is related to IV steroids. Patient continues with mild expiratory wheezing. Pt has had co diarrhea. pt currently on bentyl prn cramps. pt states cramping is controlled with medicaiton. pt is also on tamiflu, pt states she feels some improvement overall - Past Medical Family Social History Past Med/Fam/Surg Hx: No changes since H&P Allergies: Allergies azithromycin [From Zithromax] Allergy (Verified 10/30/17 14:21) morphine Allergy (Verified 10/30/17 14:21) nitrofurantoin [From Macrodantin] Allergy (Verified 10/30/17 14:21) Sulfa (Sulfonamide Antibiotics) [SULFA] Allergy (Verified 10/30/17 14:21) - Vital Signs and I&O's Vital Signs: Temperature 98.3 F Pulse Rate [Right Brachial] 74 Pulse Rate [Left Brachial] 20 Pulse Rate 86 Respiratory Rate 20 Blood Pressure [Left Arm] 108/56 Blood Pressure [Right Arm] 117/59 Blood Pressure 111/46 O2 Sat by Pulse Oximetry 96 Intake and Output: Intake & Output 11/03/17 11/04/17 11/05/17 11/06/17 11:59 11:59 11:59 11:59 Intake Total 2089 2029 3079 Balance 2089 2029 3079 - Physical Exam Eyes: Normal Ear: Normal Nose: Normal Throat: Normal Respiratory: Wheezes Cardiovascular: Normal : Normal Auscultation: Bowel Sounds: Normal Tenderness: Normal Skin: Normal Musculoskeletal: Right, Left, Knee, Back:Lumbar Psychiatric: Anxiety Mood Description: Calm Speech Pattern: Clear, Appropriate - Laboratory and Diagnostics Result Diagrams: 11/05/17 04:05 11/05/17 04:05 Labs: 11/04/17 12:47 Urine,Clean Catch Urine Culture - Final 10/30/17 20:42 Sputum - Expectorated Sputum Sputum Culture - Final 10/30/17 20:42 Sputum - Expectorated Sputum - Final 10/30/17 14:42 Blood Blood Culture - Preliminary 10/30/17 14:38 Blood Blood Culture - Preliminary Laboratory WBC 7.6 X10^3/uL (3.6-10.0) 11/05/17 04:05 RBC 3.50 X10^6/uL (3.5-5.4) 11/05/17 04:05 Hgb 9.6 g/dL (12.0-16.0) L 11/05/17 04:05 Hct 29.2 % (36.0-47.0) L 11/05/17 04:05 MCV 83.3 fL (80.0-100.0) 11/05/17 04:05 MCH 27.5 pg (27.0-34.0) 11/05/17 04:05 MCHC 33.0 g/dL (33.0-35.0) 11/05/17 04:05 RDW 15.8 % (11.6-16.5) 11/05/17 04:05 Plt Count 207 X10^3/uL (150.0-450.0) 11/05/17 04:05 MPV 8.7 fL (7.4-11.0) 11/05/17 04:05 Neut % 51.5 % (42.0-75.0) 11/05/17 04:05 Lymph % 37.2 % (21.0-51.0) 11/05/17 04:05 [place] % 8.7 % (0.0-13.0) 11/05/17 04:05 Eos % 2.5 % (0.9-2.9) 11/05/17 04:05 Baso % 0.1 % (0.2-1.0) L 11/05/17 04:05 Neut # 3.9 x10^3/uL (2.2-4.8) 11/05/17 04:05 Lymph # 2.8 X10^3/uL (1.3-2.9) 11/05/17 04:05 [place] # 0.7 x10^3/uL (0.3-0.8) 11/05/17 04:05 Eos # 0.2 x10^3/uL (0.0-0.2) 11/05/17 04:05 Baso # 0.0 X10^3/uL (0.0-0.1) 11/05/17 04:05 Absolute Nucleated RBC 0.1 /100WBC 11/05/17 04:05 Sodium 139 mmol/L (136-145) 11/05/17 04:05 Corrected Sodium TNP 11/05/17 04:05 Potassium 3.6 mmol/L (3.5-5.1) 11/05/17 04:05 Chloride 103 mmol/L (98-107) 11/05/17 04:05 Carbon Dioxide 32.7 mmol/L (21-32) H 11/05/17 04:05 BUN 8 mg/dL (7-18) 11/05/17 04:05 Creatinine 0.86 mg/dL (0.55-1.02) 11/05/17 04:05 Est GFR (MDRD) Af Amer > 60 (>60) 11/05/17 04:05 Est GFR (MDRD) Non-Af > 60 (>60) 11/05/17 04:05 Glucose 83 mg/dL (65-99) 11/05/17 04:05 Calcium 8.2 mg/dL (8.5-10.1) L 11/05/17 04:05 Corrected Calcium 9.7 mg/dL (8.5-10.1) 11/05/17 04:05 Magnesium 1.8 mg/dL (1.7-2.9) 11/04/17 04:25 Total Bilirubin 0.40 mg/dL (0.2-1.0) 11/05/17 04:05 AST 14 Units/L (15-37) L 11/05/17 04:05 ALT 13 Units/L (12-78) 11/05/17 04:05 Alkaline Phosphatase 62 Units/L (46-116) 11/05/17 04:05 Total Protein 5.3 g/dL (6.4-8.2) L 11/05/17 04:05 Albumin 2.1 g/dL (3.4-5.0) L 11/05/17 04:05 Globulin 3.2 g/dL (2.5-4.5) 11/05/17 04:05 Albumin/Globulin Ratio 0.7 Ratio (1.1-2.1) L 11/05/17 04:05 Specimen Type Clean catch urine 11/04/17 12:47 Urine Color Yellow (YELLOW) 11/04/17 12:47 Urine Appearance Clear (CLEAR) 11/04/17 12:47 Urine pH 5.0 (5.0 - 8.0) 11/04/17 12:47 Ur Specific [place] 1.005 (1.000-1.030) 11/04/17 12:47 Urine Protein Negative (NEGATIVE) 11/04/17 12:47 Urine Glucose (UA) Negative (NEGATIVE) 11/04/17 12:47 Urine Ketones Negative (NEGATIVE) 11/04/17 12:47 Urine Occult Blood Negative (NEGATIVE) 11/04/17 12:47 Urine Nitrite Negative (NEGATIVE) 11/04/17 12:47 Urine Bilirubin Negative (NEGATIVE) 11/04/17 12:47 Urine Urobilinogen Normal (NORMAL) 11/04/17 12:47 Ur Leukocyte Esterase Negative (NEGATIVE) 11/04/17 12:47 Urine RBC 0 /HPF (NEGATIVE) 11/04/17 12:47 Urine WBC 0 /HPF (NEGATIVE) 11/04/17 12:47 Ur Squamous Epith Cells Negative /HPF (NEGATIVE) 11/04/17 12:47 Urine Bacteria Negative /HPF (NEGATIVE) 11/04/17 12:47 Ur Culture Indicated? No/not indicated 11/04/17 12:47 RSV Nasal Swab Negative (NEGATIVE) 11/01/17 21:10 Influenza Type A (PCR) Negative (NEGATIVE) 11/01/17 21:10 Influenza Type B (PCR) Positive (NEGATIVE) A 11/01/17 21:10 - Plan (1) Acute bronchitis with chronic obstructive pulmonary disease (COPD) Status: Acute Plan: CONTINUE PNEUMONIA PATHWAY. BLOOD AND SPUTUM CULTURES COLLECTED ON ADMISSION, IV ATBX, RESP THERAPY. SUPPLEMENTAL O2, IV HYDRATION. CONTINUE BP MONITORING, ENCOURAGE PULMONARY TOILETING (2) RSV (respiratory syncytial virus infection) Status: Acute (3) SOB (shortness of breath) Status: Acute (4) Arthritis Status: Chronic (5) CAD (coronary artery disease) Status: Chronic (6) Hypertension Status: Chronic (7) Influenza B Status: Acute Plan: with gi symptoms. continue tamiflu and bentyl po prn
--- NOTE | 2017-11-05 13:24 | PCM.PROG ---
Progress Note - Progress Note for Day of Date: 11/05/17 - Subjective Subjective: patient is a 67-year-old white female who was admitted on 2 ago with acute bronchitis with COPD failed outpatient treatment. Patient continues with mild expiratory wheezing. Pt has had co diarrhea. pt currently on bentyl prn cramps. pt states cramping is controlled with medicaiton. pt is also on tamiflu, pt states she feels some improvement overall. PT ordered, pt encouraged to ambulate - Past Medical Family Social History Past Med/Fam/Surg Hx: No changes since H&P Allergies: Allergies azithromycin [From Zithromax] Allergy (Verified 10/30/17 14:21) morphine Allergy (Verified 10/30/17 14:21) nitrofurantoin [From Macrodantin] Allergy (Verified 10/30/17 14:21) Sulfa (Sulfonamide Antibiotics) [SULFA] Allergy (Verified 10/30/17 14:21) - Vital Signs and I&O's Vital Signs: Temperature 98.3 F Pulse Rate [Right Brachial] 74 Pulse Rate [Left Brachial] 20 Pulse Rate 86 Respiratory Rate 20 Blood Pressure [Left Arm] 108/56 Blood Pressure [Right Arm] 117/59 Blood Pressure 111/46 O2 Sat by Pulse Oximetry 96 Intake and Output: Intake & Output 11/03/17 11/04/17 11/05/17 11/06/17 11:59 11:59 11:59 11:59 Intake Total 2089 2029 3079 Balance 2089 2029 3079 - Physical Exam Eyes: Normal Ear: Normal Nose: Normal Throat: Normal Respiratory: Wheezes Cardiovascular: Normal : Normal Auscultation: Bowel Sounds: Normal Tenderness: Normal Skin: Normal Musculoskeletal: Right, Left, Knee, Back:Lumbar Psychiatric: Anxiety Mood Description: Calm Speech Pattern: Clear, Appropriate - Laboratory and Diagnostics Result Diagrams: 11/05/17 04:05 11/05/17 04:05 Labs: 11/04/17 12:47 Urine,Clean Catch Urine Culture - Final 10/30/17 20:42 Sputum - Expectorated Sputum Sputum Culture - Final 10/30/17 20:42 Sputum - Expectorated Sputum - Final 10/30/17 14:42 Blood Blood Culture - Preliminary 10/30/17 14:38 Blood Blood Culture - Preliminary Laboratory WBC 7.6 X10^3/uL (3.6-10.0) 11/05/17 04:05 RBC 3.50 X10^6/uL (3.5-5.4) 11/05/17 04:05 Hgb 9.6 g/dL (12.0-16.0) L 11/05/17 04:05 Hct 29.2 % (36.0-47.0) L 11/05/17 04:05 MCV 83.3 fL (80.0-100.0) 11/05/17 04:05 MCH 27.5 pg (27.0-34.0) 11/05/17 04:05 MCHC 33.0 g/dL (33.0-35.0) 11/05/17 04:05 RDW 15.8 % (11.6-16.5) 11/05/17 04:05 Plt Count 207 X10^3/uL (150.0-450.0) 11/05/17 04:05 MPV 8.7 fL (7.4-11.0) 11/05/17 04:05 Neut % 51.5 % (42.0-75.0) 11/05/17 04:05 Lymph % 37.2 % (21.0-51.0) 11/05/17 04:05 [place] % 8.7 % (0.0-13.0) 11/05/17 04:05 Eos % 2.5 % (0.9-2.9) 11/05/17 04:05 Baso % 0.1 % (0.2-1.0) L 11/05/17 04:05 Neut # 3.9 x10^3/uL (2.2-4.8) 11/05/17 04:05 Lymph # 2.8 X10^3/uL (1.3-2.9) 11/05/17 04:05 [place] # 0.7 x10^3/uL (0.3-0.8) 11/05/17 04:05 Eos # 0.2 x10^3/uL (0.0-0.2) 11/05/17 04:05 Baso # 0.0 X10^3/uL (0.0-0.1) 11/05/17 04:05 Absolute Nucleated RBC 0.1 /100WBC 11/05/17 04:05 Sodium 139 mmol/L (136-145) 11/05/17 04:05 Corrected Sodium TNP 11/05/17 04:05 Potassium 3.6 mmol/L (3.5-5.1) 11/05/17 04:05 Chloride 103 mmol/L (98-107) 11/05/17 04:05 Carbon Dioxide 32.7 mmol/L (21-32) H 11/05/17 04:05 BUN 8 mg/dL (7-18) 11/05/17 04:05 Creatinine 0.86 mg/dL (0.55-1.02) 11/05/17 04:05 Est GFR (MDRD) Af Amer > 60 (>60) 11/05/17 04:05 Est GFR (MDRD) Non-Af > 60 (>60) 11/05/17 04:05 Glucose 83 mg/dL (65-99) 11/05/17 04:05 Calcium 8.2 mg/dL (8.5-10.1) L 11/05/17 04:05 Corrected Calcium 9.7 mg/dL (8.5-10.1) 11/05/17 04:05 Magnesium 1.8 mg/dL (1.7-2.9) 11/04/17 04:25 Total Bilirubin 0.40 mg/dL (0.2-1.0) 11/05/17 04:05 AST 14 Units/L (15-37) L 11/05/17 04:05 ALT 13 Units/L (12-78) 11/05/17 04:05 Alkaline Phosphatase 62 Units/L (46-116) 11/05/17 04:05 Total Protein 5.3 g/dL (6.4-8.2) L 11/05/17 04:05 Albumin 2.1 g/dL (3.4-5.0) L 11/05/17 04:05 Globulin 3.2 g/dL (2.5-4.5) 11/05/17 04:05 Albumin/Globulin Ratio 0.7 Ratio (1.1-2.1) L 11/05/17 04:05 Specimen Type Clean catch urine 11/04/17 12:47 Urine Color Yellow (YELLOW) 11/04/17 12:47 Urine Appearance Clear (CLEAR) 11/04/17 12:47 Urine pH 5.0 (5.0 - 8.0) 11/04/17 12:47 Ur Specific [place] 1.005 (1.000-1.030) 11/04/17 12:47 Urine Protein Negative (NEGATIVE) 11/04/17 12:47 Urine Glucose (UA) Negative (NEGATIVE) 11/04/17 12:47 Urine Ketones Negative (NEGATIVE) 11/04/17 12:47 Urine Occult Blood Negative (NEGATIVE) 11/04/17 12:47 Urine Nitrite Negative (NEGATIVE) 11/04/17 12:47 Urine Bilirubin Negative (NEGATIVE) 11/04/17 12:47 Urine Urobilinogen Normal (NORMAL) 11/04/17 12:47 Ur Leukocyte Esterase Negative (NEGATIVE) 11/04/17 12:47 Urine RBC 0 /HPF (NEGATIVE) 11/04/17 12:47 Urine WBC 0 /HPF (NEGATIVE) 11/04/17 12:47 Ur Squamous Epith Cells Negative /HPF (NEGATIVE) 11/04/17 12:47 Urine Bacteria Negative /HPF (NEGATIVE) 11/04/17 12:47 Ur Culture Indicated? No/not indicated 11/04/17 12:47 RSV Nasal Swab Negative (NEGATIVE) 11/01/17 21:10 Influenza Type A (PCR) Negative (NEGATIVE) 11/01/17 21:10 Influenza Type B (PCR) Positive (NEGATIVE) A 11/01/17 21:10 - Plan (1) Acute bronchitis with chronic obstructive pulmonary disease (COPD) Status: Acute Plan: CONTINUE PNEUMONIA PATHWAY. BLOOD AND SPUTUM CULTURES COLLECTED ON ADMISSION, IV ATBX, RESP THERAPY. SUPPLEMENTAL O2, IV HYDRATION. CONTINUE BP MONITORING, ENCOURAGE PULMONARY TOILETING (2) RSV (respiratory syncytial virus infection) Status: Acute (3) SOB (shortness of breath) Status: Acute (4) Arthritis Status: Chronic (5) CAD (coronary artery disease) Status: Chronic (6) Hypertension Status: Chronic (7) Influenza B Status: Acute Plan: with gi symptoms. continue tamiflu and bentyl po prn
[2017-11-05] MEDS ORDERED: NS 1/2 1000 ML IV 1,000 ML IV ONE (19:58)
[2017-11-05] MEDS: ZOCOR TAB 40 MG PO SCH (20:31)
[2017-11-05] MEDS: ZOFRAN INJ 4 MG VIAL IVP PRN (20:32)
[2017-11-05] MEDS: ATARAX TAB 25 MG PO PRN (20:32)
[2017-11-06] MEDS: NS 1/2 1000 ML IV 1,000 ML IV SCH
[2017-11-06] MEDS: PERCOCET TAB 5/325 MG PO PRN (04:25)
[2017-11-06 05:18] LABS: BASOPHILS # (AUTO) 0.1 X10^3/uL (0.0-0.1); BASOPHILS % (AUTO) 0.9 % (0.2-1.0); EOSINOPHILS # (AUTO) 0.2 x10^3/uL (0.0-0.2); EOSINOPHILS % (AUTO) 3.8 % (0.9-2.9); HEMATOCRIT 29.9 % (36.0-47.0); HEMOGLOBIN 9.8 g/dL (12.0-16.0); LYMPHOCYTES # (AUTO) 2.2 X10^3/uL (1.3-2.9); LYMPHOCYTES % (AUTO) 34.6 % (21.0-51.0); MEAN CORPUSCULAR HEMOGLOBIN 27.6 pg (27.0-34.0); MEAN CORPUSCULAR HGB CONC 32.9 g/dL (33.0-35.0); MEAN CORPUSCULAR VOLUME 83.9 fL (80.0-100.0); MEAN PLATELET VOLUME 7.9 fL (7.4-11.0); MONOCYTES # (AUTO) 0.6 x10^3/uL (0.3-0.8); MONOCYTES % (AUTO) 9.7 % (0.0-13.0); NEUTROPHILS # (AUTO) 3.3 x10^3/uL (2.2-4.8); PLATELET COUNT 216 X10^3/uL (150.0-450.0); RED BLOOD COUNT 3.56 X10^6/uL (3.5-5.4); RED CELL DISTRIBUTION WIDTH 15.6 % (11.6-16.5); WHITE BLOOD COUNT 6.5 X10^3/uL (3.6-10.0)
[2017-11-06 05:21] LABS: ALANINE AMINOTRANSFERASE 14 Units/L (12-78); ALBUMIN 2.2 g/dL (3.4-5.0); ALKALINE PHOSPHATASE 61 Units/L (46-116); ASPARTATE AMINO TRANSFERASE 13 Units/L (15-37); BLOOD UREA NITROGEN 8 mg/dL (7-18); CALCIUM 8.5 mg/dL (8.5-10.1); CARBON DIOXIDE 35.6 mmol/L (21-32); CHLORIDE 104 mmol/L (98-107); COR CA(FOR HYPOALB) 9.9 mg/dL (8.5-10.1); CREATININE 0.89 mg/dL (0.55-1.02); SODIUM 141 mmol/L (136-145); TOTAL PROTEIN 5.6 g/dL (6.4-8.2); eGFR BLACK RACES > 60 (>60); eGFR NON BLACK RACES > 60 (>60)
[2017-11-06] MEDS: LEVAQUIN PREMIX IV 750 MG 750 MG/150 ML BAG IV SCH (08:50)
[2017-11-06] MEDS: PROTONIX INJ 40 MG VIAL IVP SCH (08:50)
[2017-11-06] MEDS: ROBITUSSIN DM PO SCH ×2 (08:51→14:09)
[2017-11-06] MEDS: ASPIRIN PO SCH (08:51)
[2017-11-06] MEDS: CARDIZEM SR 120 MG PO SCH (08:51)
[2017-11-06] MEDS: LASIX PO SCH (08:51)
[2017-11-06] MEDS: K-DUR TAB 20 MEQ PO SCH (08:51)
[2017-11-06] MEDS: BENTYL CAP 10 MG PO SCH ×2 (08:51→14:09)
[2017-11-06] MEDS: ZESTRIL TAB 10 MG PO SCH (08:51)
[2017-11-06] MEDS: COLACE CAP 100 MG PO SCH (08:51)
[2017-11-06] MEDS: TAMIFLU PO SCH (08:52)
[2017-11-06] MEDS: TOPROL XL PO SCH (08:52)
[2017-11-06] MEDS: NEURONTIN CAP 100 MG PO SCH (08:52)
[2017-11-06] MEDS: BROVANA NEB SCH (09:01)
[2017-11-06] MEDS: PULMICORT NEB TX 0.5 MG NEB SCH (09:01)
[2017-11-06] MEDS: XOPENEX 1.25 MG/3 ML NEBULE NEB SCH (09:01)
[2017-11-06 12:17] VITALS: BP 100/78
== END 2017-11-06 14:25 | disposition home health service (06) | DRG 195 ==
LOC: MED/SURG 12:26
PROVIDERS: ADMIT Internal Medicine; ATTEND Internal Medicine
DX: J10.1 Influenza due to other identified influenza virus with other respiratory manifestations (principal); J20.5 Acute bronchitis due to respiratory syncytial virus; J44.9 Chronic obstructive pulmonary disease, unspecified; R06.02 Shortness of breath; I10 Essential (primary) hypertension; K21.9 Gastro-esophageal reflux disease without esophagitis; I25.10 Atherosclerotic heart disease of native coronary artery without angina pectoris; E78.2 Mixed hyperlipidemia; Z66 Do not resuscitate; R60.1 Generalized edema; M13.89 Other specified arthritis, multiple sites; I50.9 Heart failure, unspecified
CPT/HCPCS: 36415; 71045; 71046; 80053; 81001; 83735; 85025; 87040; 87070; 87086; 87205; 87420; 87502; 94640; 94760; A4222; C9113; G9035; J1940; J1956; J2405; J2930; J7626

== ENCOUNTER → 2017-12-05 | Outpatient (CLI) | payer OTHER, MEDICAID ==
[2017-11-06 12:17] VITALS: BP 100/78
[2017-12-05 08:45] LABS: ALANINE AMINOTRANSFERASE 21 Units/L (12-78); ALBUMIN 3.7 g/dL (3.4-5.0); ALKALINE PHOSPHATASE 102 Units/L (46-116); ASPARTATE AMINO TRANSFERASE 13 Units/L (15-37); BILIRUBIN,DIRECT 0.11 mg/dL (0-0.2); BLOOD UREA NITROGEN 21 mg/dL (7-18); CALCIUM 9.4 mg/dL (8.5-10.1); CARBON DIOXIDE 31.8 mmol/L (21-32); CHLORIDE 105 mmol/L (98-107); CHOL/HDL RATIO 3.2 (0.0-5.0); CHOLESTEROL 161 mg/dL (0-200); CREATININE 0.87 mg/dL (0.55-1.02); HDL CHOLESTEROL 51 mg/dL (40-60); SODIUM 144 mmol/L (136-145); TOTAL PROTEIN 7.4 g/dL (6.4-8.2); TRIGLYCERIDES 126 mg/dL (0-150); eGFR BLACK RACES > 60 (>60); eGFR NON BLACK RACES > 60 (>60)
[2017-12-05 08:47] LABS: BASOPHILS % (AUTO) 0.7 % (0.2-1.0); EOSINOPHILS # (AUTO) 0.1 x10^3/uL (0.0-0.2); EOSINOPHILS % (AUTO) 1.9 % (0.9-2.9); HEMATOCRIT 38.5 % (36.0-47.0); HEMOGLOBIN 12.7 g/dL (12.0-16.0); LYMPHOCYTES # (AUTO) 1.9 X10^3/uL (1.3-2.9); LYMPHOCYTES % (AUTO) 29.9 % (21.0-51.0); MEAN CORPUSCULAR HEMOGLOBIN 27.6 pg (27.0-34.0); MEAN CORPUSCULAR VOLUME 83.7 fL (80.0-100.0); MEAN PLATELET VOLUME 8.4 fL (7.4-11.0); MONOCYTES # (AUTO) 0.4 x10^3/uL (0.3-0.8); MONOCYTES % (AUTO) 6.9 % (0.0-13.0); NEUTROPHILS # (AUTO) 3.9 x10^3/uL (2.2-4.8); NEUTROPHILS % (AUTO) 60.6 % (42.0-75.0); PLATELET COUNT 267 X10^3/uL (150.0-450.0); RED BLOOD COUNT 4.61 X10^6/uL (3.5-5.4); RED CELL DISTRIBUTION WIDTH 15.7 % (11.6-16.5); WHITE BLOOD COUNT 6.5 X10^3/uL (3.6-10.0)
== END ==
LOC: LAB 08:12
PROVIDERS: ATTEND Internal Medicine Clinical Cardiac Electrophysiology
DX: Z79.899 Other long term (current) drug therapy (principal); I25.10 Atherosclerotic heart disease of native coronary artery without angina pectoris
CPT/HCPCS: 36415; 80048; 80061; 80076; 85025

== ENCOUNTER → 2017-12-17 | Outpatient (CLI) | payer OTHER, MEDICAID ==
--- NOTE | 2017-12-17 14:49 | CT ---
Examination: CT of the head. Clinical history: Dizziness with fall 1 week ago. Technique: Multiple axial images were obtained from the skull base to the vertex. No intravenous cont rast was administered. Dose reduction techniques including automated exposure control (AEC) and adjus tment of mA and kV were utilized. Comparison: 10/19/2016. Findings: There is no intra-, or extra-axial hemorrhage, acute infarct or mass lesion noted. The ventricles are normal in size and symmetric about the midline, with no midline shift or mass effe ct noted. The posterior fossa, brain stem and orbital regions are within normal limits. No bony or soft tissue abnormality is noted. Impression: 1. No acute infarct or hemorrhage. Reported By:
--- NOTE | 2017-12-17 15:29 | RAD ---
HISTORY: Back pain after fall 1 week prior. Study: AP and lateral thoracic spine with swimmer's lateral chest radiograph 10/30/2017 Comparison: Lateral chest radiograph 10/30/2017, CT scan of the chest reconstructions 03/19/2011 Findings: There is normal alignment on the frontal radiograph. There minimal lateral spurring is present at a few levels. The pedicles appear to be intact. A Port-A-Cath is present on the right the tip is at t he cavoatrial junction. Visualized lungs show minimal atelectatic change. The lateral view demonstr ates mild thoracic spondylosis. Mild anterior spurring is present multiple levels. Very minimal ant erior wedging of a couple thoracic vertebra present, unchanged. I see no definite evidence of rib fr actures. Please see rib details from the same day. No evidence of pneumothorax is noted. IMPRESSION: 1. Thoracic spondylosis as described above. 2. No acute bony abnormalities are identified. Reported By:
--- NOTE | 2017-12-17 15:35 | RAD ---
History: COPD, asthma. Sleep apnea. Dizziness with rib pain. Technique: PA view of the chest with left rib series. Six radiographs total. Comparison: 11/05/2017 Findings: There is a right-sided chest port present. Tip of the catheter terminates at the cavoatrial junction. There is minimal subsegmental atelectasis in the left lung base. Lungs otherwise appear clear withou t focal airspace opacities. Cardiac silhouette is mildly enlarged. There is a subtle cortical regular ity involving lateral aspect of the left 6th rib. This is best seen on series 1, image 5. Impression: 1. Subtle cortical regularity involving lateral aspect of the left 6th rib. This is concerning for an age-indeterminate rib fracture. Correlate clinically. 2. Minimal subsegmental atelectasis in the left lung base. This has improved since previous radiograp h. 3. Mild enlargement of the cardiac silhouette. Reported By:
== END | disposition home or self-care (01) | DRG 552 ==
LOC: RAD 13:47
PROVIDERS: ATTEND Internal Medicine
DX: M54.6 Pain in thoracic spine (principal); J98.11 Atelectasis; M47.894 Other spondylosis, thoracic region; S09.8XXA Other specified injuries of head, initial encounter; S00.83XA Contusion of other part of head, initial encounter; W19.XXXA Unspecified fall, initial encounter
CPT/HCPCS: 70450; 71111; 72072

== ENCOUNTER 2019-09-13 11:34 | Observation (INO) ==
[2019-09-13] MEDS ORDERED: REGLAN TAB 5 MG PO PRN (13:13)
[2019-09-13 13:25] LABS: BASOPHILS # (AUTO) 0.1 X10^3/uL (0.0-0.1); BASOPHILS % (AUTO) 0.8 % (0.2-1.0); EOSINOPHILS # (AUTO) 0.2 x10^3/uL (0.0-0.2); EOSINOPHILS % (AUTO) 2.1 % (0.9-2.9); HEMATOCRIT 37.1 % (36.0-47.0); HEMOGLOBIN 12.2 g/dL (12.0-16.0); LYMPHOCYTES # (AUTO) 1.5 X10^3/uL (1.3-2.9); LYMPHOCYTES % (AUTO) 18.1 % (21.0-51.0); MEAN CORPUSCULAR HEMOGLOBIN 28.3 pg (27.0-34.0); MEAN CORPUSCULAR HGB CONC 33.1 g/dL (33.0-35.0); MEAN CORPUSCULAR VOLUME 85.6 fL (80.0-100.0); MEAN PLATELET VOLUME 7.9 fL (7.4-11.0); MONOCYTES # (AUTO) 0.5 x10^3/uL (0.3-0.8); MONOCYTES % (AUTO) 6.1 % (0.0-13.0); NEUTROPHILS # (AUTO) 6.2 x10^3/uL (2.2-4.8); NEUTROPHILS % (AUTO) 72.9 % (42.0-75.0); PLATELET COUNT 249 X10^3/uL (150.0-450.0); RED BLOOD COUNT 4.33 X10^6/uL (3.5-5.4); RED CELL DISTRIBUTION WIDTH 14.8 % (11.6-16.5); WHITE BLOOD COUNT 8.5 X10^3/uL (3.6-10.0)
[2019-09-13] MEDS ORDERED: NS 1/2 1000 ML IV 1,000 ML IV ONE (13:38)
[2019-09-13 13:41] LABS: ALANINE AMINOTRANSFERASE 20 Units/L (12-78); ALBUMIN 3.3 g/dL (3.4-5.0); ALKALINE PHOSPHATASE 94 Units/L (46-116); ASPARTATE AMINO TRANSFERASE 15 Units/L (15-37); BLOOD UREA NITROGEN 15 mg/dL (7-18); CARBON DIOXIDE 32.5 mmol/L (21-32); CHLORIDE 103 mmol/L (98-107); COR CA(FOR HYPOALB) 9.6 mg/dL (8.5-10.1); CREATININE 0.74 mg/dL (0.55-1.02); SODIUM 141 mmol/L (136-145); TOTAL PROTEIN 6.7 g/dL (6.4-8.2); eGFR NON BLACK RACES > 60 (>60)
[2019-09-13] MEDS: ROBITUSSIN DM PO SCH ×3 (13:41→20:17)
[2019-09-13] MEDS: NS 1/2 1000 ML IV 1,000 ML IV SCH (13:42)
[2019-09-13] MEDS: ATARAX TAB 25 MG PO PRN ×2 (13:42→22:18)
[2019-09-13] MEDS: PULMICORT NEB TX 0.5 MG NEB SCH ×2 (13:46→20:48)
[2019-09-13] MEDS ORDERED: POTASSIUM CHLORIDE LIQ 20 MEQ UDC PO PRN (13:48)
[2019-09-13] MEDS ORDERED: POTASSIUM CHL 60 MEQ/NS 0.45% 500 ML IV PRN (13:48)
[2019-09-13] MEDS ORDERED: KLOR-CON PO PRN (13:48)
[2019-09-13] MEDS ORDERED: MICRO K EXTEN CAP 10 MEQ PO PRN (13:48)
[2019-09-13] MEDS ORDERED: K-RIDER 10 MEQ/NS 100 ML 10 MEQ/100 ML BAG IV PRN (13:48)
[2019-09-13] MEDS ORDERED: K-DUR TAB 20 MEQ PO PRN (13:48)
[2019-09-13] MEDS ORDERED: POTASSIUM CHL 40 MEQ/NS 0.45% 500 ML IV PRN (13:48)
[2019-09-13 13:54] VITALS: BMI 47.5
[2019-09-13] MEDS ORDERED: SALINE 3% 15 ML NEB TX NEB ONE (13:56)
[2019-09-13] MEDS: LEVAQUIN PREMIX IV 500 MG 500 MG/100 ML BAG IV SCH (14:29)
--- NOTE | 2019-09-13 16:41 | RAD ---
HISTORY: Pneumonia. Prior history of asthma and hypertension.Study: Two-view chestComparison: 11/05/2017.Findings:A right-sided Port-A-Cath is again seen inserted via subclavian approach with the tip in upper SVC. Trachea is midline. Heart size normal. There is aortic uncoiling. Mild hyperinflation of the lungs is appreciated without infiltrate significant atelectasis, CHF, pleural fluid or pneumothorax. No acute osseous changes are seen.IMPRESSION: Mild hyperinflation of the lungs. No acute cardiopulmonary disease is seen.Reported By:
[2019-09-13] MEDS: XOPENEX 1.25 MG/3 ML NEBULE NEB SCH (17:34)
--- NOTE | 2019-09-13 18:09 | DR.H&P ---
H&P - History & Physical for Day of: H&P Date: 09/13/19 - Chief Complaint Chief Complaint: CCC, FEVER, WHEEZING AND SOB - History of Present Illness History of Present Illness: 69 WF DIRECT ADMIT FROM DR YANEZ OFFICE WITH CO CCC, WHEEZING AND SOB. PT STARTED WITH COLD SYMPTOMS ON FRIDAY, PT FLU LIKE SYMPTOMS, FEVER, BODY ACHES. PT HAD NEGATIVE FLU SWAB IN OUR OFFICE. PT HAS DUO NEBS AT HOME WITHOUT IMPROVEMENT IN SYMPTOMS. PT HAS PMH OF COPD, CHF, AFIB, HTN, OA. PT ADMITTED FOR TREATMENT OF ACUTE BRONCHITIS. - Past Medical History Past Medical History: Angina, Arthritis, Asthma, COPD, Dyslipidemia, Hypertension, Sleep Apnea - Past Surgical History Surgical History: , Cholecystectomy, Joint Replacement, Ortho Surgery, Other - Family History Family Medical History: Diabetes Mellitus, [place], Hypertension - Social History Does patient currently use any type of tobacco product: No Have you used tobacco products in the last 12 months: No Type of Tobacco Use: None Does any household member use tobacco: No Alcohol Use: None Drug Use: Prescription Drugs - Medications Home Medications: adhesive tape Allergy (Verified 09/13/19 12:28) azithromycin [From Zithromax] Allergy (Verified 09/13/19 12:27) morphine Allergy (Verified 09/13/19 12:27) nitrofurantoin [From Macrodantin] Allergy (Verified 09/13/19 12:27) Sulfa (Sulfonamide Antibiotics) [SULFA] Allergy (Verified 09/13/19 12:27) CONTINUE taking the following medications albuterol sulfate 2 inh INHALATION PRN PRN 09/13/19 [History] apixaban [Eliquis] 5 mg PO BID 09/13/19 [History] gabapentin 100 mg PO HS 09/13/19 [History] metoclopramide HCl [Reglan] 5 mg PO BID PRN 09/13/19 [History] oxycodone-acetaminophen [Percocet] 5 - 325 tab PO DAILY PRN 09/13/19 [History] pantoprazole 10 mg PO DAILY 09/13/19 [History] ranitidine HCl [Zantac 75] 150 mg PO BID 09/13/19 [History] - Review of Systems Constitutional: Weakness Eyes: No Symptoms Reported ENT: No Symptoms Reported Respiratory: Cough, Shortness of Breath, SOB with Excertion, Sputum, Wheezing Cardiovascular: No Symptoms Reported, Light Headedness Gastrointestinal: Nausea Genitourinary: No Symptoms Reported Musculoskeletal: Back Pain Skin: No Symptoms Reported Neurological: Weakness - Physical Exam Vital Signs: Temperature 98.2 F Pulse Rate [Left Brachial] 80 Pulse Rate 78 Respiratory Rate 18 Blood Pressure [Left Arm] 140/74 Blood Pressure [Right Arm] 100/78 Blood Pressure 137/69 O2 Sat by Pulse Oximetry 99 Oriented: Normal Eyes: Normal Ear: Normal Nose: Normal Throat: Dry Respiratory: Rhonchi Throughout, Wheezes Throughout, RLL Diminished, LLL Diminished Cardiovascular: Tachycardia, Edema : Normal Auscultation: Bowel Sounds: Normal Palpation: Normal Tenderness: Normal Skin: Decreased [place] Musculoskeletal: Right, Left, Knee, Back:Lumbar Psychiatric: Anxiety Affect: Anxious Speech Pattern: Clear, Appropriate - Assessment/Plan (1) Acute bronchitis with chronic obstructive pulmonary disease (COPD) Status: Acute Plan: ADMIT, PNEUMONIA PROTOCOL. IV ANTIBIOTICS, SUPPLEMENTAL O2, RESP THERAPY. VERIFY HOME MEDICATIONS, GENTLE IV HYDRATION. PULMONARY TOILETING, BLOOD AND SPUTUM CULTURES ON ADMISSION. CXR ON ADMISSION, BP CONTROL (2) Chronic a-fib Status: Acute (3) CAD (coronary artery disease) Status: Chronic (4) Hypertension Status: Chronic - Allergies Allergies/Adverse Reactions: Allergies Allergy/AdvReac Type Severity Reaction Status Date / Time adhesive tape Allergy Verified 09/13/19 12:28 azithromycin [From Zithromax] Allergy Verified 09/13/19 12:27 morphine Allergy Verified 09/13/19 12:27 nitrofurantoin Allergy Verified 09/13/19 12:27 [From Macrodantin] Sulfa (Sulfonamide Allergy Verified 09/13/19 12:27 Antibiotics) [SULFA]
[2019-09-13] MEDS: SOLU-Medrol 125 MG VIAL IVP SCH ×2 (18:24→22:18)
[2019-09-13 19:35] LABS: MYCOPLASMA PNEUMONIAE IGM AB NEGATIVE (NEGATIVE)
[2019-09-13] MEDS: ELIQUIS PO SCH (20:16)
[2019-09-13] MEDS: ZOCOR TAB 40 MG PO SCH (20:16)
[2019-09-13] MEDS: NEURONTIN CAP 100 MG PO SCH (20:16)
[2019-09-13] MEDS: TOPROL XL PO SCH (20:17)
[2019-09-13] MEDS: ZOFRAN INJ 4 MG VIAL IVP PRN (20:18)
[2019-09-13] MEDS: PERCOCET TAB 5/325 MG PO PRN (20:18)
[2019-09-13] MEDS ORDERED: RANITIDINE HCL 150 MG PO SCH (21:00)
[2019-09-14] MEDS: XOPENEX 1.25 MG/3 ML NEBULE NEB SCH ×4 (00:39→17:00)
[2019-09-14] MEDS: TUSSIONEX PENNKINETIC SUSP PO PRN ×2 (01:02→21:12)
[2019-09-14] MEDS ORDERED: NS 1/2 1000 ML IV 1,000 ML IV ONE ×2 (03:52→19:10)
[2019-09-14] MEDS: NS 1/2 1000 ML IV 1,000 ML IV SCH ×2 (03:57→17:18)
[2019-09-14] MEDS: SOLU-Medrol 125 MG VIAL IVP SCH (05:01)
[2019-09-14 06:29] LABS: BASOPHILS # (AUTO) 0.1 X10^3/uL (0.0-0.1); BASOPHILS % (AUTO) 0.7 % (0.2-1.0); EOSINOPHILS % (AUTO) 0.1 % (0.9-2.9); HEMATOCRIT 39.4 % (36.0-47.0); HEMOGLOBIN 12.7 g/dL (12.0-16.0); LYMPHOCYTES # (AUTO) 0.6 X10^3/uL (1.3-2.9); LYMPHOCYTES % (AUTO) 7.5 % (21.0-51.0); MEAN CORPUSCULAR HEMOGLOBIN 27.9 pg (27.0-34.0); MEAN CORPUSCULAR HGB CONC 32.3 g/dL (33.0-35.0); MEAN CORPUSCULAR VOLUME 86.4 fL (80.0-100.0); MEAN PLATELET VOLUME 7.7 fL (7.4-11.0); MONOCYTES # (AUTO) 0.1 x10^3/uL (0.3-0.8); MONOCYTES % (AUTO) 0.8 % (0.0-13.0); NEUTROPHILS # (AUTO) 7.3 x10^3/uL (2.2-4.8); NEUTROPHILS % (AUTO) 90.9 % (42.0-75.0); PLATELET COUNT 266 X10^3/uL (150.0-450.0); RED BLOOD COUNT 4.56 X10^6/uL (3.5-5.4); RED CELL DISTRIBUTION WIDTH 14.9 % (11.6-16.5)
[2019-09-14 06:35] LABS: ALANINE AMINOTRANSFERASE 21 Units/L (12-78); ALBUMIN 3.1 g/dL (3.4-5.0); ALKALINE PHOSPHATASE 100 Units/L (46-116); ASPARTATE AMINO TRANSFERASE 17 Units/L (15-37); BLOOD UREA NITROGEN 15 mg/dL (7-18); CALCIUM 9.3 mg/dL (8.5-10.1); CARBON DIOXIDE 29.7 mmol/L (21-32); CHLORIDE 103 mmol/L (98-107); COR NA(FOR HYPERGLY) 140 mmol/L (136-145); CREATININE 0.94 mg/dL (0.55-1.02); SODIUM 139 mmol/L (136-145); eGFR NON BLACK RACES > 60 (>60)
[2019-09-14 06:41] LABS: PLATELET MORPHOLOGY COMMENT NORMAL (NORMAL)
[2019-09-14] MEDS: LASIX PO SCH (08:21)
[2019-09-14] MEDS: ZESTRIL TAB 10 MG PO SCH (08:21)
[2019-09-14] MEDS: ROBITUSSIN DM PO SCH ×4 (08:21→20:18)
[2019-09-14] MEDS: PROTONIX TAB 40 MG PO SCH (08:21)
[2019-09-14] MEDS: ELIQUIS PO SCH ×2 (08:22→20:18)
[2019-09-14] MEDS: TOPROL XL PO SCH (08:22)
[2019-09-14] MEDS: K-DUR TAB 20 MEQ PO SCH (08:22)
[2019-09-14] MEDS: LEVAQUIN PREMIX IV 500 MG 500 MG/100 ML BAG IV SCH (08:25)
[2019-09-14] MEDS: PULMICORT NEB TX 0.5 MG NEB SCH ×2 (08:35→20:10)
[2019-09-14] MEDS: PEPCID 20 MG IV PREMIX* 20 MG/50 ML BAG IV SCH (09:59)
[2019-09-14] MEDS ORDERED: ZANTAC PO SCH (10:00)
[2019-09-14] MEDS: COLACE CAP 100 MG PO SCH (10:13)
[2019-09-14] MEDS: NEURONTIN CAP 100 MG PO SCH (20:18)
[2019-09-14] MEDS: ZOCOR TAB 40 MG PO SCH (20:18)
[2019-09-14] MEDS: ATARAX TAB 25 MG PO PRN (20:19)
[2019-09-14] MEDS: PERCOCET TAB 5/325 MG PO PRN (20:21)
[2019-09-14] MEDS: ZOFRAN INJ 4 MG VIAL IVP PRN (20:24)
[2019-09-15] MEDS: XOPENEX 1.25 MG/3 ML NEBULE NEB SCH ×2 (00:05→05:01)
[2019-09-15] MEDS: NS 1/2 1000 ML IV 1,000 ML IV SCH ×2 (04:16→07:13)
[2019-09-15 05:25] LABS: BASOPHILS % (AUTO) 0.1 % (0.2-1.0); EOSINOPHILS % (AUTO) 0.1 % (0.9-2.9); HEMATOCRIT 34.2 % (36.0-47.0); HEMOGLOBIN 11.3 g/dL (12.0-16.0); LYMPHOCYTES # (AUTO) 1.2 X10^3/uL (1.3-2.9); LYMPHOCYTES % (AUTO) 12.9 % (21.0-51.0); MEAN CORPUSCULAR HEMOGLOBIN 28.7 pg (27.0-34.0); MEAN CORPUSCULAR VOLUME 86.9 fL (80.0-100.0); MEAN PLATELET VOLUME 7.8 fL (7.4-11.0); MONOCYTES # (AUTO) 0.6 x10^3/uL (0.3-0.8); MONOCYTES % (AUTO) 6.6 % (0.0-13.0); NEUTROPHILS # (AUTO) 7.5 x10^3/uL (2.2-4.8); NEUTROPHILS % (AUTO) 80.3 % (42.0-75.0); PLATELET COUNT 261 X10^3/uL (150.0-450.0); RED BLOOD COUNT 3.94 X10^6/uL (3.5-5.4); WHITE BLOOD COUNT 9.4 X10^3/uL (3.6-10.0)
[2019-09-15] MEDS: ROBITUSSIN DM PO SCH ×2 (05:43→08:16)
[2019-09-15 05:44] LABS: ALANINE AMINOTRANSFERASE 16 Units/L (12-78); ALBUMIN 2.8 g/dL (3.4-5.0); ALKALINE PHOSPHATASE 78 Units/L (46-116); ASPARTATE AMINO TRANSFERASE 9 Units/L (15-37); BLOOD UREA NITROGEN 19 mg/dL (7-18); CALCIUM 9.1 mg/dL (8.5-10.1); CARBON DIOXIDE 32.5 mmol/L (21-32); CHLORIDE 106 mmol/L (98-107); COR CA(FOR HYPOALB) 10.1 mg/dL (8.5-10.1); CREATININE 0.91 mg/dL (0.55-1.02); SODIUM 141 mmol/L (136-145); TOTAL PROTEIN 6.1 g/dL (6.4-8.2); eGFR NON BLACK RACES > 60 (>60)
[2019-09-15] MEDS: COLACE CAP 100 MG PO SCH (08:13)
[2019-09-15] MEDS ORDERED: SOLU-Medrol 40 MG VIAL IVP ONE (08:13)
[2019-09-15] MEDS: ZESTRIL TAB 10 MG PO SCH (08:13)
[2019-09-15] MEDS: ELIQUIS PO SCH (08:13)
[2019-09-15] MEDS: LASIX PO SCH (08:13)
[2019-09-15] MEDS: PROTONIX TAB 40 MG PO SCH (08:13)
[2019-09-15] MEDS: K-DUR TAB 20 MEQ PO SCH (08:14)
[2019-09-15] MEDS: LEVAQUIN PREMIX IV 500 MG 500 MG/100 ML BAG IV SCH (08:15)
[2019-09-15] MEDS: TUSSIONEX PENNKINETIC SUSP PO PRN (08:15)
[2019-09-15] MEDS: PEPCID 20 MG IV PREMIX* 20 MG/50 ML BAG IV SCH (08:15)
[2019-09-15] MEDS: PULMICORT NEB TX 0.5 MG NEB SCH (08:46)
[2019-09-15] MEDS ORDERED: LOPRESSOR TAB 25 MG PO SCH (09:00)
[2019-09-15 11:40] VITALS: BP 116/68
== END 2019-09-15 13:20 | disposition home or self-care (01) ==
LOC: MED/SURG
PROVIDERS: ADMIT Internal Medicine; ATTEND Internal Medicine
DX: Z79.01 Long term (current) use of anticoagulants; R06.02 Shortness of breath; I25.10 Atherosclerotic heart disease of native coronary artery without angina pectoris; J44.9 Chronic obstructive pulmonary disease, unspecified; J20.9 Acute bronchitis, unspecified; I10 Essential (primary) hypertension; I48.20 Chronic atrial fibrillation, unspecified; E78.2 Mixed hyperlipidemia; K21.9 Gastro-esophageal reflux disease without esophagitis; M19.90 Unspecified osteoarthritis, unspecified site
CPT/HCPCS: 36415; 71020; 71046; 80053; 83735; 85025; 86738; 87040; 87070; 87205; 87502; 94640; 94760; 96360; 96361; 96374; A4222; S0028; G0378; J1956; J2405; J2920; J2930; J7626

== ENCOUNTER 2019-11-08 10:57 | Inpatient (IN) ==
[2019-11-08 12:43] LABS: BASOPHILS # (AUTO) 0.1 X10^3/uL (0.0-0.1); BASOPHILS % (AUTO) 0.9 % (0.2-1.0); EOSINOPHILS # (AUTO) 0.2 x10^3/uL (0.0-0.2); EOSINOPHILS % (AUTO) 2.1 % (0.9-2.9); HEMATOCRIT 41.3 % (36.0-47.0); HEMOGLOBIN 13.5 g/dL (12.0-16.0); LYMPHOCYTES # (AUTO) 1.8 X10^3/uL (1.3-2.9); LYMPHOCYTES % (AUTO) 19.4 % (21.0-51.0); MEAN CORPUSCULAR HEMOGLOBIN 27.5 pg (27.0-34.0); MEAN CORPUSCULAR HGB CONC 32.6 g/dL (33.0-35.0); MEAN CORPUSCULAR VOLUME 84.3 fL (80.0-100.0); MEAN PLATELET VOLUME 7.6 fL (7.4-11.0); MONOCYTES # (AUTO) 0.5 x10^3/uL (0.3-0.8); MONOCYTES % (AUTO) 5.4 % (0.0-13.0); NEUTROPHILS # (AUTO) 6.6 x10^3/uL (2.2-4.8); NEUTROPHILS % (AUTO) 72.2 % (42.0-75.0); PLATELET COUNT 275 X10^3/uL (150.0-450.0); RED CELL DISTRIBUTION WIDTH 15.3 % (11.6-16.5); WHITE BLOOD COUNT 9.2 X10^3/uL (3.6-10.0)
[2019-11-08 12:46] LABS: ABG BASE EXCESS 4.8 mmol/L (-2.0-2.0); ABG HCO3 29.9 mmol/L (22-26)
[2019-11-08 12:59] LABS: ALANINE AMINOTRANSFERASE 23 Units/L (12-78); ALKALINE PHOSPHATASE 122 Units/L (46-116); ASPARTATE AMINO TRANSFERASE 17 Units/L (15-37); BLOOD UREA NITROGEN 11 mg/dL (7-18); CALCIUM 9.6 mg/dL (8.5-10.1); CARBON DIOXIDE 31.5 mmol/L (21-32); CHLORIDE 101 mmol/L (98-107); SODIUM 139 mmol/L (136-145); TOTAL PROTEIN 8.2 g/dL (6.4-8.2); eGFR NON BLACK RACES > 60 (>60)
[2019-11-08] MEDS: ROBITUSSIN DM PO SCH ×3 (13:30→20:52)
[2019-11-08] MEDS: NS 1000 ML 1,000 ML IV SCH (13:30)
[2019-11-08] MEDS: SOLU-Medrol 125 MG VIAL IVP SCH ×3 (13:30→20:59)
[2019-11-08] MEDS: LEVAQUIN PREMIX IV 500 MG 500 MG/100 ML BAG IV SCH (13:30)
--- NOTE | 2019-11-08 17:10 | RAD ---
HISTORYSOB and feverSTUDYPortable AP chestCOMPARISONDecember 2018FINDINGSThe heart and mediastinum are unremarkable. There is a unchanged Port-A-Cath via the right subclavian vein. The lungs are grossly clear.IMPRESSIONNo evidence for acute cardiopulmonary diseaseElectronically signed by: KATI DONOHUE (Nov 08, 2019 12:52:51)
[2019-11-08 17:29] LABS: MYCOPLASMA PNEUMONIAE IGM AB NEGATIVE (NEGATIVE)
[2019-11-08] MEDS ORDERED: ATARAX TAB 25 MG PO PRN (21:01)
[2019-11-08] MEDS: PROVENTIL NEB TX 0.083% 2.5MG/ 3ML NEB SCH (21:25)
[2019-11-09 06:26] LABS: BASOPHILS % (AUTO) 0.3 % (0.2-1.0); EOSINOPHILS % (AUTO) 0.2 % (0.9-2.9); HEMATOCRIT 37.7 % (36.0-47.0); HEMOGLOBIN 12.5 g/dL (12.0-16.0); LYMPHOCYTES # (AUTO) 0.5 X10^3/uL (1.3-2.9); LYMPHOCYTES % (AUTO) 6.2 % (21.0-51.0); MEAN CORPUSCULAR HEMOGLOBIN 28.1 pg (27.0-34.0); MEAN CORPUSCULAR HGB CONC 33.1 g/dL (33.0-35.0); MEAN CORPUSCULAR VOLUME 84.9 fL (80.0-100.0); MEAN PLATELET VOLUME 8.2 fL (7.4-11.0); MONOCYTES # (AUTO) 0.1 x10^3/uL (0.3-0.8); NEUTROPHILS # (AUTO) 7.7 x10^3/uL (2.2-4.8); NEUTROPHILS % (AUTO) 92.3 % (42.0-75.0); PLATELET COUNT 267 X10^3/uL (150.0-450.0); RED BLOOD COUNT 4.43 X10^6/uL (3.5-5.4); RED CELL DISTRIBUTION WIDTH 15.1 % (11.6-16.5); WHITE BLOOD COUNT 8.4 X10^3/uL (3.6-10.0)
[2019-11-09 06:37] LABS: ALANINE AMINOTRANSFERASE 18 Units/L (12-78); ALBUMIN 3.1 g/dL (3.4-5.0); ALKALINE PHOSPHATASE 97 Units/L (46-116); ASPARTATE AMINO TRANSFERASE 13 Units/L (15-37); BLOOD UREA NITROGEN 12 mg/dL (7-18); CALCIUM 9.7 mg/dL (8.5-10.1); CHLORIDE 105 mmol/L (98-107); COR CA(FOR HYPOALB) 10.4 mg/dL (8.5-10.1); COR NA(FOR HYPERGLY) 141 mmol/L (136-145); CREATININE 0.79 mg/dL (0.55-1.02); SODIUM 140 mmol/L (136-145); TOTAL PROTEIN 6.8 g/dL (6.4-8.2); eGFR NON BLACK RACES > 60 (>60)
[2019-11-09 06:53] LABS: BAND NEUTROPHILS % 3 % (0-10); PLATELET MORPHOLOGY COMMENT NORMAL (NORMAL)
[2019-11-09] MEDS: PROVENTIL NEB TX 0.083% 2.5MG/ 3ML NEB SCH ×5 (08:59→20:40)
[2019-11-09] MEDS: LEVAQUIN PREMIX IV 500 MG 500 MG/100 ML BAG IV SCH (09:24)
[2019-11-09] MEDS: ROBITUSSIN DM PO SCH ×4 (09:24→20:47)
[2019-11-09] MEDS ORDERED: REGLAN TAB 5 MG PO PRN (09:26)
[2019-11-09] MEDS ORDERED: PERCOCET TAB 5/325 MG PO PRN (09:26)
[2019-11-09] MEDS ORDERED: TUSSIONEX PENNKINETIC SUSP PO PRN (09:28)
[2019-11-09] MEDS: PROTONIX TAB 40 MG PO SCH (11:09)
[2019-11-09] MEDS: ELIQUIS PO SCH ×2 (11:09→20:46)
[2019-11-09] MEDS: K-DUR TAB 20 MEQ PO SCH (11:09)
[2019-11-09] MEDS: LOPRESSOR TAB 25 MG PO SCH ×2 (11:09→20:46)
[2019-11-09 11:51] LABS: BILIRUBIN,URINE NEGATIVE (NEGATIVE); BLOOD/HEMOGLOBIN,URINE 2+ (NEGATIVE); GLUCOSE, URINE 1+ (NEGATIVE); KETONES,URINE 1+ (NEGATIVE); LEUKOCYTE ESTERASE ,URINE 1+ (NEGATIVE); NITRITES,URINE NEGATIVE (NEGATIVE); PROTEIN,URINE 1+ (NEGATIVE); UROBILINOGEN,URINE NORMAL (NORMAL)
[2019-11-09 11:59] LABS: APPEARANCE,URINE HAZY (CLEAR); BACTERIA,URINE NEGATIVE /HPF (NEGATIVE); COLOR,URINE YELLOW (YELLOW); RBC,URINE 0-2 /HPF (0-3); SQUAMOUS EPITHELIAL CELL,UR NEGATIVE /HPF (NEGATIVE)
[2019-11-09 12:00] LABS: MUCUS,URINE FEW /HPF (NEGATIVE)
[2019-11-09] MEDS: PULMICORT NEB TX 0.5 MG NEB SCH ×2 (13:59→20:40)
[2019-11-09] MEDS: NEURONTIN CAP 100 MG PO SCH (20:45)
[2019-11-09] MEDS: ZOCOR TAB 40 MG PO SCH (20:46)
[2019-11-09] MEDS: NS 1000 ML 1,000 ML IV SCH (20:47)
[2019-11-10 06:09] LABS: BASOPHILS % (AUTO) 0.2 % (0.2-1.0); EOSINOPHILS % (AUTO) 0.1 % (0.9-2.9); HEMATOCRIT 35.2 % (36.0-47.0); HEMOGLOBIN 11.5 g/dL (12.0-16.0); LYMPHOCYTES # (AUTO) 1.6 X10^3/uL (1.3-2.9); LYMPHOCYTES % (AUTO) 16.7 % (21.0-51.0); MEAN CORPUSCULAR HGB CONC 32.8 g/dL (33.0-35.0); MEAN CORPUSCULAR VOLUME 85.4 fL (80.0-100.0); MEAN PLATELET VOLUME 7.9 fL (7.4-11.0); MONOCYTES # (AUTO) 0.5 x10^3/uL (0.3-0.8); MONOCYTES % (AUTO) 5.4 % (0.0-13.0); NEUTROPHILS # (AUTO) 7.3 x10^3/uL (2.2-4.8); NEUTROPHILS % (AUTO) 77.6 % (42.0-75.0); PLATELET COUNT 246 X10^3/uL (150.0-450.0); RED BLOOD COUNT 4.12 X10^6/uL (3.5-5.4); RED CELL DISTRIBUTION WIDTH 15.6 % (11.6-16.5); WHITE BLOOD COUNT 9.4 X10^3/uL (3.6-10.0)
[2019-11-10 06:25] LABS: ALANINE AMINOTRANSFERASE 17 Units/L (12-78); ALBUMIN 2.8 g/dL (3.4-5.0); ALKALINE PHOSPHATASE 80 Units/L (46-116); ASPARTATE AMINO TRANSFERASE 11 Units/L (15-37); BLOOD UREA NITROGEN 20 mg/dL (7-18); CALCIUM 9.5 mg/dL (8.5-10.1); CARBON DIOXIDE 31.8 mmol/L (21-32); CHLORIDE 110 mmol/L (98-107); COR CA(FOR HYPOALB) 10.5 mg/dL (8.5-10.1); CREATININE 0.85 mg/dL (0.55-1.02); SODIUM 145 mmol/L (136-145); eGFR NON BLACK RACES > 60 (>60)
[2019-11-10] MEDS: K-DUR TAB 20 MEQ PO SCH (08:34)
[2019-11-10] MEDS: ELIQUIS PO SCH ×2 (08:34→20:32)
[2019-11-10] MEDS: LOPRESSOR TAB 25 MG PO SCH ×2 (08:35→20:32)
[2019-11-10] MEDS: ROBITUSSIN DM PO SCH ×4 (08:35→20:33)
[2019-11-10] MEDS: PROTONIX TAB 40 MG PO SCH (08:35)
[2019-11-10] MEDS: LEVAQUIN PREMIX IV 500 MG 500 MG/100 ML BAG IV SCH (08:36)
[2019-11-10] MEDS: ZESTRIL TAB 10 MG PO SCH (08:37)
[2019-11-10] MEDS: PULMICORT NEB TX 0.5 MG NEB SCH ×2 (08:42→20:10)
[2019-11-10] MEDS: PROVENTIL NEB TX 0.083% 2.5MG/ 3ML NEB SCH ×4 (08:42→20:10)
[2019-11-10] MEDS ORDERED: LASIX IVP SCH (10:00)
[2019-11-10] MEDS: NS 1000 ML 1,000 ML IV SCH ×2 (10:58→12:39)
[2019-11-10] MEDS: SOLU-Medrol 40 MG VIAL IVP SCH ×3 (10:59→21:05)
--- NOTE | 2019-11-10 12:29 | DR.UPDATE ---
H&P Update History and Physical Update: History and Physical reviewed and patient examined. 11/08/2019 Changes noted: NO Prescription drug monitoring program results: PDMP reviewed and no concerns identified H&P Reviewed: Yes Patient was examined?: Yes
--- NOTE | 2019-11-10 12:53 | PCM.PROG ---
Progress Note - Progress Note for Day of Date of Exam: 11/09/19 - Subjective Subjective: PT IS 69 WF ADMITTED ON 11/08 WITH AB, FEVER AND CCC. PT HAD BEEN EXPOSED TO INFLUENZA PRIOR TO ONSET OF SICKNESS. PT HAD NEGATIVE FLU AND MYCOPLASMA. PT IS CURRENTLY ON IV LEVAQUIN AND IV SOLU MEDROL WITH CONTINUED DIFFUSE WHEEZING AND PERSISTANT COUGH WITH MINIMAL SPUTUM PRODUCTION. PT STATES SHE DID NOT REST LAST PM DUE TO COUGHING. - Past Medical Family Social History Past Med/Fam/Surg Hx: No changes since H&P Allergies: Allergies adhesive tape Allergy (Verified 09/13/19 12:28) azithromycin [From Zithromax] Allergy (Verified 09/13/19 12:27) morphine Allergy (Verified 09/13/19 12:27) nitrofurantoin [From Macrodantin] Allergy (Verified 09/13/19 12:27) Sulfa (Sulfonamide Antibiotics) [SULFA] Allergy (Verified 09/13/19 12:27) - Review of Systems ROS: No change since H&P - Vital Signs and I&O's Vital Signs: Temperature 98.0 F Pulse Rate [Right Brachial] 79 Pulse Rate 79 Respiratory Rate 18 Blood Pressure [Right Arm] 136/64 Blood Pressure [Left Arm] 150/71 Blood Pressure 137/69 O2 Sat by Pulse Oximetry 96 Intake and Output: Intake & Output 11/08/19 11/09/19 11/10/19 11/11/19 11:59 11:59 11:59 11:59 Intake Total 1760 / 1760 1570 / 1570 Balance 1760 / 1760 1570 / 1570 - Physical Exam Oriented: Normal Eyes: Normal Ear: Normal Nose: Normal Throat: Normal Respiratory: Diminished, Wheezes, Rhonchi Cardiovascular: Normal : Normal, Hematuria Palpation: Normal Tenderness: Normal Skin: Decreased Turgur Musculoskeletal: Right, Left, Knee, Back:Thoracic, Back:Lumbar Mood Description: Calm Speech Pattern: Clear, Appropriate - Laboratory and Diagnostics Result Diagrams: 11/10/19 05:34 11/10/19 05:34 Labs: 11/08/19 12:31 Blood Blood Culture - Preliminary 11/08/19 12:23 Blood Blood Culture - Preliminary 11/08/19 16:50 Sputum - Expectorated Sputum Sputum Culture - Final 11/08/19 16:50 Sputum - Expectorated Sputum - Final Laboratory WBC 9.4 X10^3/uL (3.6-10.0) 11/10/19 05:34 RBC 4.12 X10^6/uL (3.5-5.4) 11/10/19 05:34 Hgb 11.5 g/dL (12.0-16.0) L 11/10/19 05:34 Hct 35.2 % (36.0-47.0) L 11/10/19 05:34 MCV 85.4 fL (80.0-100.0) 11/10/19 05:34 MCH 28.0 pg (27.0-34.0) 11/10/19 05:34 MCHC 32.8 g/dL (33.0-35.0) L 11/10/19 05:34 RDW 15.6 % (11.6-16.5) 11/10/19 05:34 Plt Count 246 X10^3/uL (150.0-450.0) 11/10/19 05:34 Plt Count Comment Adequate (ADEQUATE) 11/09/19 05:25 MPV 7.9 fL (7.4-11.0) 11/10/19 05:34 Neut % (Auto) 77.6 % (42.0-75.0) H 11/10/19 05:34 Lymph % (Auto) 16.7 % (21.0-51.0) L 11/10/19 05:34 [place] % (Auto) 5.4 % (0.0-13.0) 11/10/19 05:34 Eos % (Auto) 0.1 % (0.9-2.9) L 11/10/19 05:34 Baso % (Auto) 0.2 % (0.2-1.0) 11/10/19 05:34 Neut # (Auto) 7.3 x10^3/uL (2.2-4.8) H 11/10/19 05:34 Lymph # (Auto) 1.6 X10^3/uL (1.3-2.9) 11/10/19 05:34 [place] # (Auto) 0.5 x10^3/uL (0.3-0.8) 11/10/19 05:34 Eos # (Auto) 0.0 x10^3/uL (0.0-0.2) 11/10/19 05:34 Baso # (Auto) 0.0 X10^3/uL (0.0-0.1) 11/10/19 05:34 Absolute Nucleated RBC 0.0 /100WBC 11/10/19 05:34 Total Counted 100 11/09/19 05:25 Neutrophils % (Manual) 91 % (39-76) H 11/09/19 05:25 Band Neutrophils % 3 % (0-10) 11/09/19 05:25 Lymphocytes % (Manual) 5 % (13-43) L 11/09/19 05:25 Monocytes % (Manual) 1 % (4-9) L 11/09/19 05:25 Plt Morphology Comment Normal (NORMAL) 11/09/19 05:25 RBC Morphology Normal (NORMAL) 11/09/19 05:25 Sample Site Left brachial 11/08/19 12:38 ABG pH 7.430 (7.35-7.45) 11/08/19 12:38 ABG pCO2 45.0 mmHg (35.0-45.0) 11/08/19 12:38 ABG pO2 69.0 mmHg (80.0-100.0) L 11/08/19 12:38 ABG HCO3 29.9 mmol/L (22-26) H 11/08/19 12:38 ABG O2 Saturation 94.0 % (90-100) 11/08/19 12:38 ABG Base Excess 4.8 mmol/L (-2.0-2.0) H 11/08/19 12:38 Pete Test Na 11/08/19 12:38 A-a Gradient 24.0 mmHg 11/08/19 12:38 FiO2 21.0 11/08/19 12:38 Blood Gas Comments Hood well aw 11/08/19 12:38 Sodium 145 mmol/L (136-145) 11/10/19 05:34 Corrected Sodium TNP 11/10/19 05:34 Potassium 4.1 mmol/L (3.5-5.1) 11/10/19 05:34 Chloride 110 mmol/L (98-107) H 11/10/19 05:34 Carbon Dioxide 31.8 mmol/L (21-32) 11/10/19 05:34 BUN 20 mg/dL (7-18) H 11/10/19 05:34 Creatinine 0.85 mg/dL (0.55-1.02) 11/10/19 05:34 Est GFR (MDRD) Af Amer > 60 (>60) 11/10/19 05:34 Est GFR (MDRD) Non-Af > 60 (>60) 11/10/19 05:34 Glucose 98 mg/dL (65-99) 11/10/19 05:34 Calcium 9.5 mg/dL (8.5-10.1) 11/10/19 05:34 Corrected Calcium 10.5 mg/dL (8.5-10.1) H 11/10/19 05:34 Total Bilirubin 0.20 mg/dL (0.2-1.0) 11/10/19 05:34 AST 11 Units/L (15-37) L 11/10/19 05:34 ALT 17 Units/L (12-78) 11/10/19 05:34 Alkaline Phosphatase 80 Units/L (46-116) 11/10/19 05:34 Total Protein 6.0 g/dL (6.4-8.2) L 11/10/19 05:34 Albumin 2.8 g/dL (3.4-5.0) L 11/10/19 05:34 Globulin 3.2 g/dL (2.5-4.5) 11/10/19 05:34 Albumin/Globulin Ratio 0.9 Ratio (1.1-2.1) L 11/10/19 05:34 Specimen Type Clean catch urine 11/09/19 11:15 Urine Color Yellow (YELLOW) 11/09/19 11:15 Urine Appearance Hazy (CLEAR) 11/09/19 11:15 Urine pH 6.0 (5.0 - 8.0) 11/09/19 11:15 Ur Specific [place] 1.020 (1.000-1.030) 11/09/19 11:15 Urine Protein 1+ (NEGATIVE) 11/09/19 11:15 Urine Glucose (UA) 1+ (NEGATIVE) 11/09/19 11:15 Urine Ketones 1+ (NEGATIVE) 11/09/19 11:15 Urine Occult Blood 2+ (NEGATIVE) 11/09/19 11:15 Urine Nitrite Negative (NEGATIVE) 11/09/19 11:15 Urine Bilirubin Negative (NEGATIVE) 11/09/19 11:15 Urine Urobilinogen Normal (NORMAL) 11/09/19 11:15 Ur Leukocyte Esterase 1+ (NEGATIVE) 11/09/19 11:15 Urine RBC 0-2 /HPF (0-3) 11/09/19 11:15 Urine WBC 0-2 /HPF (0-5) 11/09/19 11:15 Ur Squamous Epith Cells Negative /HPF (NEGATIVE) 11/09/19 11:15 Urine Bacteria Negative /HPF (NEGATIVE) 11/09/19 11:15 Urine Mucus Few /HPF (NEGATIVE) 11/09/19 11:15 Ur Culture Indicated? No/not indicated 11/09/19 11:15 Influenza Type A (PCR) Negative (NEGATIVE) 11/08/19 21:15 Influenza Type B (PCR) Negative (NEGATIVE) 11/08/19 21:15 Mycoplasma pneumon IgG Negative (NEGATIVE) 11/08/19 12:23 - Plan (1) Acute bronchitis with chronic obstructive pulmonary disease (COPD) Status: Acute Plan: CONTINUE IV ATBX, RESP THERAPY. ADD BUDESONIDE TO NEBS BID. CONTINUE DUO NEBS, PRN SUPPLEMENTAL O2 AND PULMONARY TOILETING. BP CONTROL, TELEMETRY, ENCOURAGE ORAL HYDRATION. REPEAT AM LABS, ADD TUSSIONEX AND ROBITUSSIN. (2) Chronic a-fib Status: Acute (3) CAD (coronary artery disease) Status: Chronic (4) Hypertension Status: Chronic (5) Raynaud disease Status: Chronic
[2019-11-10] MEDS: NEURONTIN CAP 100 MG PO SCH (20:32)
[2019-11-10] MEDS: ZOCOR TAB 40 MG PO SCH (20:33)
[2019-11-11] MEDS: SOLU-Medrol 40 MG VIAL IVP SCH ×2 (05:50→14:03)
[2019-11-11 06:36] LABS: BASOPHILS % (AUTO) 0 % (0.2-1.0); HEMATOCRIT 34.8 % (36.0-47.0); HEMOGLOBIN 11.4 g/dL (12.0-16.0); LYMPHOCYTES # (AUTO) 0.7 X10^3/uL (1.3-2.9); LYMPHOCYTES % (AUTO) 7.9 % (21.0-51.0); MEAN CORPUSCULAR HEMOGLOBIN 27.8 pg (27.0-34.0); MEAN CORPUSCULAR HGB CONC 32.9 g/dL (33.0-35.0); MEAN CORPUSCULAR VOLUME 84.4 fL (80.0-100.0); MEAN PLATELET VOLUME 8.3 fL (7.4-11.0); MONOCYTES # (AUTO) 0.1 x10^3/uL (0.3-0.8); MONOCYTES % (AUTO) 1.6 % (0.0-13.0); NEUTROPHILS # (AUTO) 8.4 x10^3/uL (2.2-4.8); NEUTROPHILS % (AUTO) 90.5 % (42.0-75.0); PLATELET COUNT 269 X10^3/uL (150.0-450.0); RED BLOOD COUNT 4.12 X10^6/uL (3.5-5.4); RED CELL DISTRIBUTION WIDTH 15.4 % (11.6-16.5); WHITE BLOOD COUNT 9.3 X10^3/uL (3.6-10.0)
[2019-11-11 06:55] LABS: ALANINE AMINOTRANSFERASE 17 Units/L (12-78); ALBUMIN 2.9 g/dL (3.4-5.0); ALKALINE PHOSPHATASE 86 Units/L (46-116); ASPARTATE AMINO TRANSFERASE 12 Units/L (15-37); BLOOD UREA NITROGEN 20 mg/dL (7-18); CALCIUM 9.3 mg/dL (8.5-10.1); CARBON DIOXIDE 31.4 mmol/L (21-32); CHLORIDE 106 mmol/L (98-107); COR CA(FOR HYPOALB) 10.2 mg/dL (8.5-10.1); COR NA(FOR HYPERGLY) 143 mmol/L (136-145); CREATININE 0.81 mg/dL (0.55-1.02); SODIUM 142 mmol/L (136-145); TOTAL PROTEIN 6.2 g/dL (6.4-8.2); eGFR NON BLACK RACES > 60 (>60)
[2019-11-11 07:04] LABS: PLATELET MORPHOLOGY COMMENT NORMAL (NORMAL)
[2019-11-11] MEDS: LEVAQUIN PREMIX IV 500 MG 500 MG/100 ML BAG IV SCH (08:38)
[2019-11-11] MEDS: ELIQUIS PO SCH (08:39)
[2019-11-11] MEDS: LOPRESSOR TAB 25 MG PO SCH (08:39)
[2019-11-11] MEDS: ZESTRIL TAB 10 MG PO SCH (08:39)
[2019-11-11] MEDS: PULMICORT NEB TX 0.5 MG NEB SCH (08:39)
[2019-11-11] MEDS: K-DUR TAB 20 MEQ PO SCH (08:39)
[2019-11-11] MEDS: PROVENTIL NEB TX 0.083% 2.5MG/ 3ML NEB SCH ×2 (08:39→12:07)
[2019-11-11] MEDS: ROBITUSSIN DM PO SCH ×2 (08:40→14:03)
[2019-11-11] MEDS: PROTONIX TAB 40 MG PO SCH (08:40)
--- NOTE | 2019-11-11 09:26 | RAD ---
HISTORYBronchitisSTUDYCHEST, PA/LAT ADULTCOMPARISONFebruary 2019FINDINGSThere is a port present on the right. The heart is within normal limits in size. The lior are normal. The lung [place] are clear. The bony thorax is unremarkable.IMPRESSIONNo significant abnormality identifiedElectronically signed by: HEMANTH HINES (Nov 11, 2019 09:25:15)
[2019-11-11 16:06] VITALS: BP 143/72
== END 2019-11-11 16:05 | disposition home or self-care (01) | DRG 202 ==
LOC: ICU → MED/SURG 11:53
PROVIDERS: ADMIT Internal Medicine; ATTEND Internal Medicine
DX: J20.8 Acute bronchitis due to other specified organisms; I48.20 Chronic atrial fibrillation, unspecified; R50.9 Fever, unspecified; I73.00 Raynaud's syndrome without gangrene; M19.90 Unspecified osteoarthritis, unspecified site; J44.0 Chronic obstructive pulmonary disease with (acute) lower respiratory infection; I50.9 Heart failure, unspecified; R06.02 Shortness of breath; I25.10 Atherosclerotic heart disease of native coronary artery without angina pectoris; I10 Essential (primary) hypertension
CPT/HCPCS: 36415; 36600; 71010; 71020; 71045; 71046; 80053; 81001; 82803; 85025; 86738; 87040; 87070; 87205; 87502; 94640; 94669; 94760; A4222; G0378; J1642; J1940; J1956; J2920; J2930; J7030; J7613; J7626

== ENCOUNTER 2021-02-12 14:51 | Inpatient (IN) ==
[2021-02-12] MEDS ORDERED: REGLAN TAB 5 MG PO PRN (15:46)
[2021-02-12 16:22] LABS: BASOPHILS # (AUTO) 0.1 X10^3/uL (0.0-0.1); BASOPHILS % (AUTO) 1.2 % (0.2-1.0); EOSINOPHILS # (AUTO) 0.1 x10^3/uL (0.0-0.2); EOSINOPHILS % (AUTO) 1.5 % (0.9-2.9); HEMATOCRIT 42.5 % (36.0-47.0); HEMOGLOBIN 13.9 g/dL (12.0-16.0); LYMPHOCYTES # (AUTO) 0.9 X10^3/uL (1.3-2.9); LYMPHOCYTES % (AUTO) 13.9 % (21.0-51.0); MEAN CORPUSCULAR HEMOGLOBIN 27.9 pg (27.0-34.0); MEAN CORPUSCULAR HGB CONC 32.7 g/dL (33.0-35.0); MEAN CORPUSCULAR VOLUME 85.3 fL (80.0-100.0); MEAN PLATELET VOLUME 7.6 fL (7.4-11.0); MONOCYTES # (AUTO) 0.6 x10^3/uL (0.3-0.8); NEUTROPHILS # (AUTO) 4.8 x10^3/uL (2.2-4.8); NEUTROPHILS % (AUTO) 74.4 % (42.0-75.0); PLATELET COUNT 234 X10^3/uL (150.0-450.0); RED BLOOD COUNT 4.98 X10^6/uL (3.5-5.4); WHITE BLOOD COUNT 6.5 X10^3/uL (3.6-10.0)
[2021-02-12] MEDS: PULMICORT NEB TX 0.5 MG NEB SCH ×2 (16:31→21:00)
[2021-02-12 16:35] LABS: ALANINE AMINOTRANSFERASE 42 Units/L (12-78); ALBUMIN 3.7 g/dL (3.4-5.0); ALKALINE PHOSPHATASE 131 Units/L (46-116); ASPARTATE AMINO TRANSFERASE 37 Units/L (15-37); BLOOD UREA NITROGEN 16 mg/dL (7-18); CALCIUM 9.6 mg/dL (8.5-10.1); CARBON DIOXIDE 31.2 mmol/L (21-32); CHLORIDE 101 mmol/L (98-107); CREATININE 0.85 mg/dL (0.55-1.02); SODIUM 138 mmol/L (136-145); TOTAL PROTEIN 7.9 g/dL (6.4-8.2); eGFR NON BLACK RACES > 60 (>60)
--- NOTE | 2021-02-12 17:05 | DR.H&P ---
H&P - History & Physical for Day of: H&P Date: 02/12/21 - Chief Complaint Chief Complaint: ccc, fever, increased sob, wheezing - History of Present Illness History of Present Illness: PT IS 70 WF DIRECT ADMIT FROM DR YANEZ OFFICE WITH COCCC, FEVER, SOB AND INCREASED WHEEZING. PT FAILED OUTPT THERAPY WITH ROUND OF 7 DAYS OF LEVAQUIN AND IM ROCEPHIN X 2. PT HAD O2 SAT 84 IN OFFICE TODAY. PT HAS PMH OF PULM HTN, AFIB, HTN, OA, COPD, CHF. PT ADMITTED FOR TREATMENT OF ACUTE ILLNESS, RO COVID 19 - Past Medical History Past Medical History: Angina, Arthritis, Asthma, COPD, Dyslipidemia, Hypertension, Sleep Apnea - Past Surgical History Surgical History: , Cholecystectomy, Joint Replacement, Ortho Surgery, Other - Family History Family Medical History: Diabetes Mellitus, NC, Hypertension - Social History Does patient currently use any type of tobacco product: No Have you used tobacco products in the last 12 months: No Type of Tobacco Use: None Does any household member use tobacco: No Alcohol Use: None Drug Use: None Risks, benefits, and alternatives of opioids discussed: No - Medications Home Medications: adhesive tape Allergy (Verified 09/13/19 12:28) azithromycin [From Zithromax] Allergy (Verified 09/13/19 12:27) morphine Allergy (Verified 09/13/19 12:27) nitrofurantoin [From Macrodantin] Allergy (Verified 09/13/19 12:27) Sulfa (Sulfonamide Antibiotics) [SULFA] Allergy (Verified 09/13/19 12:27) - Review of Systems Constitutional: Weakness Eyes: No Symptoms Reported ENT: No Symptoms Reported Respiratory: Cough, Shortness of Breath, SOB with Excertion, Wheezing Cardiovascular: No Symptoms Reported Gastrointestinal: No Symptoms Reported Genitourinary: No Symptoms Reported Musculoskeletal: Back Pain Skin: No Symptoms Reported Neurological: Weakness - Physical Exam Vital Signs: Temperature 98.4 F Pulse Rate [Left Radial] 90 Respiratory Rate 20 Blood Pressure [Right Arm] 150/71 Blood Pressure [Left Arm] 143/72 O2 Sat by Pulse Oximetry 100 Oriented: Person Eyes: Normal Ear: Normal Nose: Normal Throat: Normal Respiratory: Diminished Throughout, Rhonchi Throughout, Wheezes Throughout, RLL Diminished, LLL Diminished Cardiovascular: Normal, Edema : Normal Auscultation: Bowel Sounds: Normal Palpation: Normal Tenderness: Normal Skin: Decreased Turgur Musculoskeletal: Normal Psychiatric: Anxiety Affect: Anxious Speech Pattern: Clear, Appropriate - Assessment/Plan (1) Acute bronchitis with chronic obstructive pulmonary disease (COPD) Status: Acute Plan: ADMIT, RESP THERAPY, SPUTUM CULTURE, BC. RSV AND FLU SWAB. CT CHEST THIS AM PER PULMONARY, WILL OBTAIN RESULTS. GENTLE IV HYDRATION, IV ATBX. VERIFY AND RESUME HOME MEDICATION (2) Chronic a-fib Status: Acute (3) SOB (shortness of breath) Status: Acute (4) CAD (coronary artery disease) Status: Chronic (5) Hyperlipidemia Status: Chronic - Allergies Allergies/Adverse Reactions: Allergies Allergy/AdvReac Type Severity Reaction Status Date / Time adhesive tape Allergy Verified 09/13/19 12:28 azithromycin [From Zithromax] Allergy Verified 09/13/19 12:27 morphine Allergy Verified 09/13/19 12:27 nitrofurantoin Allergy Verified 09/13/19 12:27 [From Macrodantin] Sulfa (Sulfonamide Allergy Verified 09/13/19 12:27 Antibiotics) [SULFA]
[2021-02-12] MEDS: XOPENEX 1.25 MG/3 ML NEBULE NEB SCH ×2 (17:15→21:00)
[2021-02-12] MEDS: NS 1000 ML 1,000 ML IV SCH (17:20)
[2021-02-12] MEDS: SOLU-Medrol 125 MG VIAL IVP SCH ×2 (17:20→21:06)
[2021-02-12] MEDS: ROBITUSSIN DM PO SCH ×2 (17:20→21:06)
[2021-02-12 17:48] LABS: RSV AG DETECTION NEGATIVE (NEGATIVE)
[2021-02-12] MEDS: ELIQUIS PO SCH (21:06)
[2021-02-12] MEDS: NEURONTIN CAP 100 MG PO SCH (21:06)
[2021-02-12 21:43] LABS: BILIRUBIN,URINE NEGATIVE (NEGATIVE); BLOOD/HEMOGLOBIN,URINE 2+ (NEGATIVE); GLUCOSE, URINE NEGATIVE (NEGATIVE); KETONES,URINE NEGATIVE (NEGATIVE); LEUKOCYTE ESTERASE ,URINE NEGATIVE (NEGATIVE); NITRITES,URINE NEGATIVE (NEGATIVE); PROTEIN,URINE NEGATIVE (NEGATIVE); UROBILINOGEN,URINE NORMAL (NORMAL)
[2021-02-12 21:55] LABS: APPEARANCE,URINE CLEAR (CLEAR); COLOR,URINE STRAW (YELLOW)
[2021-02-12 21:56] LABS: BACTERIA,URINE NEGATIVE /HPF (NEGATIVE); RBC,URINE 0-2 /HPF (0-3); SQUAMOUS EPITHELIAL CELL,UR RARE /HPF (NEGATIVE)
[2021-02-13 06:00] LABS: BASOPHILS % (AUTO) 0.2 % (0.2-1.0); HEMATOCRIT 37.4 % (36.0-47.0); HEMOGLOBIN 12.3 g/dL (12.0-16.0); LYMPHOCYTES # (AUTO) 0.4 X10^3/uL (1.3-2.9); MEAN CORPUSCULAR HEMOGLOBIN 27.8 pg (27.0-34.0); MEAN CORPUSCULAR HGB CONC 32.8 g/dL (33.0-35.0); MEAN CORPUSCULAR VOLUME 84.8 fL (80.0-100.0); MEAN PLATELET VOLUME 7.8 fL (7.4-11.0); MONOCYTES # (AUTO) 0.1 x10^3/uL (0.3-0.8); MONOCYTES % (AUTO) 1.4 % (0.0-13.0); NEUTROPHILS # (AUTO) 3.7 x10^3/uL (2.2-4.8); NEUTROPHILS % (AUTO) 88.4 % (42.0-75.0); PLATELET COUNT 238 X10^3/uL (150.0-450.0); RED BLOOD COUNT 4.41 X10^6/uL (3.5-5.4); RED CELL DISTRIBUTION WIDTH 15.8 % (11.6-16.5); WHITE BLOOD COUNT 4.2 X10^3/uL (3.6-10.0)
[2021-02-13] MEDS: SOLU-Medrol 125 MG VIAL IVP SCH ×3 (06:03→21:21)
--- NOTE | 2021-02-13 06:19 | RAD ---
HISTORYCOUGH, BRONCHITISSTUDYCHEST, 1 VIEWCOMPARISONChest radiograph 03/07/2020.TECHNIQUEAP view of the chestFINDINGSRight chest wall port with tip in good position. [The cardiac and mediastinal contours are within normal limits. The lungs are clear without focal consolidation or segmental collapse. Blunted left costophrenic sulcus likely due to patient rotation. No discernible pneumothorax.]IMPRESSIONBlunted left costophrenic sulcus likely due to patient rotation but pleural scarring or small left pleural effusion is not excluded.Electronically signed by: Fidel Gurrola (February 13, 2021 06:16:52)
[2021-02-13 06:27] LABS: ALANINE AMINOTRANSFERASE 38 Units/L (12-78); ALBUMIN 3.1 g/dL (3.4-5.0); ALKALINE PHOSPHATASE 114 Units/L (46-116); ASPARTATE AMINO TRANSFERASE 27 Units/L (15-37); BLOOD UREA NITROGEN 17 mg/dL (7-18); CALCIUM 9.6 mg/dL (8.5-10.1); CARBON DIOXIDE 28.5 mmol/L (21-32); CHLORIDE 105 mmol/L (98-107); COR CA(FOR HYPOALB) 10.3 mg/dL (8.5-10.1); COR NA(FOR HYPERGLY) 141 mmol/L (136-145); CREATININE 0.77 mg/dL (0.55-1.02); SODIUM 140 mmol/L (136-145); TOTAL PROTEIN 6.8 g/dL (6.4-8.2); eGFR NON BLACK RACES > 60 (>60)
[2021-02-13 07:43] VITALS: BMI 48.4
[2021-02-13] MEDS: PULMICORT NEB TX 0.5 MG NEB SCH ×2 (08:09→21:03)
[2021-02-13] MEDS: XOPENEX 1.25 MG/3 ML NEBULE NEB SCH ×4 (08:09→21:03)
[2021-02-13] MEDS: ELIQUIS PO SCH ×2 (09:01→21:22)
[2021-02-13] MEDS: ROBITUSSIN DM PO SCH ×4 (09:01→21:22)
[2021-02-13] MEDS ORDERED: CRESTOR TAB 10 MG PO SCH (09:45)
[2021-02-13] MEDS ORDERED: TOPROL XL PO ONE (11:42)
[2021-02-13] MEDS: LASIX PO SCH (12:00)
[2021-02-13] MEDS: TOPROL XL PO SCH (12:00)
--- NOTE | 2021-02-13 14:06 | NM ---
HISTORYC/C/C, FEVER, WHEEZING, HISTORY OF DVT 21 YEARS AGOSTUDYPERFUSION LUNG SCAN ONLYCOMPARISON[Chest radiograph from 02/13/2021.]TECHNIQUE[Nuclear medicine perfusion scintigraphy. [5.6] mCi of technetium 99 M maa was administered.]FINDINGS[No large perfusion defects are identified. Recent chest radiograph showed possible small left pleural effusion with subsegmental atelectasis..]IMPRESSION[Low probability] for pulmonary emboli based on modified PIOPED criteria.Electronically signed by: Fidel Gurrola (February 13, 2021 14:04:07)
[2021-02-13] MEDS: NEURONTIN CAP 100 MG PO SCH (21:22)
[2021-02-13] MEDS: SINGULAIR TAB 10 MG PO SCH (21:22)
[2021-02-13] MEDS: ATARAX TAB 25 MG PO PRN (21:45)
[2021-02-14] MEDS: SOLU-Medrol 125 MG VIAL IVP SCH ×3 (06:01→21:22)
[2021-02-14] MEDS ORDERED: TOPROL XL PO ONE (07:36)
[2021-02-14] MEDS: NS 1000 ML 1,000 ML IV SCH ×2 (08:47→17:02)
[2021-02-14] MEDS: LASIX PO SCH (08:48)
[2021-02-14] MEDS: TOPROL XL PO SCH (08:48)
[2021-02-14] MEDS: ROBITUSSIN DM PO SCH ×4 (08:48→20:36)
[2021-02-14] MEDS: ELIQUIS PO SCH ×2 (08:48→20:36)
[2021-02-14] MEDS: XOPENEX 1.25 MG/3 ML NEBULE NEB SCH ×4 (08:53→20:20)
[2021-02-14] MEDS: PULMICORT NEB TX 0.5 MG NEB SCH ×2 (08:53→20:20)
[2021-02-14] MEDS ORDERED: PERCOCET TAB 5/325 MG PO PRN ×2 (09:05→10:00)
[2021-02-14] MEDS ORDERED: ANTIVERT TAB 25 MG PO PRN (09:05)
[2021-02-14] MEDS ORDERED: ZOFRAN TAB 4 MG PO PRN (09:05)
[2021-02-14 09:23] LABS: BASOPHILS % (AUTO) 0 % (0.2-1.0); HEMATOCRIT 38.1 % (36.0-47.0); HEMOGLOBIN 12.5 g/dL (12.0-16.0); LYMPHOCYTES # (AUTO) 0.8 X10^3/uL (1.3-2.9); LYMPHOCYTES % (AUTO) 7.4 % (21.0-51.0); MEAN CORPUSCULAR HEMOGLOBIN 27.9 pg (27.0-34.0); MEAN CORPUSCULAR HGB CONC 32.9 g/dL (33.0-35.0); MEAN CORPUSCULAR VOLUME 84.9 fL (80.0-100.0); MONOCYTES # (AUTO) 0.6 x10^3/uL (0.3-0.8); MONOCYTES % (AUTO) 5.6 % (0.0-13.0); NEUTROPHILS # (AUTO) 9.8 x10^3/uL (2.2-4.8); PLATELET COUNT 256 X10^3/uL (150.0-450.0); RED BLOOD COUNT 4.49 X10^6/uL (3.5-5.4); WHITE BLOOD COUNT 11.3 X10^3/uL (3.6-10.0)
[2021-02-14 09:34] LABS: ALANINE AMINOTRANSFERASE 33 Units/L (12-78); ALBUMIN 2.9 g/dL (3.4-5.0); ALKALINE PHOSPHATASE 99 Units/L (46-116); ASPARTATE AMINO TRANSFERASE 16 Units/L (15-37); BLOOD UREA NITROGEN 20 mg/dL (7-18); CALCIUM 9.6 mg/dL (8.5-10.1); CARBON DIOXIDE 28.9 mmol/L (21-32); CHLORIDE 107 mmol/L (98-107); COR CA(FOR HYPOALB) 10.5 mg/dL (8.5-10.1); COR NA(FOR HYPERGLY) 145 mmol/L (136-145); CREATININE 0.94 mg/dL (0.55-1.02); SODIUM 144 mmol/L (136-145); TOTAL PROTEIN 6.5 g/dL (6.4-8.2); eGFR NON BLACK RACES > 60 (>60)
[2021-02-14] MEDS ORDERED: ZETIA TAB 10 MG PO SCH (10:00)
[2021-02-14] MEDS: TUSSIONEX PENNKINETIC SUSP PO PRN (12:38)
[2021-02-14] MEDS: ATARAX TAB 25 MG PO PRN (14:12)
[2021-02-14] MEDS: SINGULAIR TAB 10 MG PO SCH (20:36)
[2021-02-14] MEDS: CRESTOR TAB 10 MG PO SCH (20:36)
[2021-02-14] MEDS: NEURONTIN CAP 100 MG PO SCH (20:36)
[2021-02-14] MEDS: PROTONIX TAB 40 MG PO SCH (20:40)
[2021-02-14] MEDS: ZETIA TAB 10 MG PO SCH (20:40)
[2021-02-15 04:47] LABS: BASOPHILS % (AUTO) 0 % (0.2-1.0); HEMOGLOBIN 11.6 g/dL (12.0-16.0); LYMPHOCYTES # (AUTO) 0.6 X10^3/uL (1.3-2.9); LYMPHOCYTES % (AUTO) 7.1 % (21.0-51.0); MEAN CORPUSCULAR HGB CONC 33.1 g/dL (33.0-35.0); MEAN CORPUSCULAR VOLUME 84.6 fL (80.0-100.0); MEAN PLATELET VOLUME 8.3 fL (7.4-11.0); MONOCYTES # (AUTO) 0.3 x10^3/uL (0.3-0.8); MONOCYTES % (AUTO) 3.2 % (0.0-13.0); NEUTROPHILS # (AUTO) 7.1 x10^3/uL (2.2-4.8); NEUTROPHILS % (AUTO) 89.7 % (42.0-75.0); PLATELET COUNT 233 X10^3/uL (150.0-450.0); RED BLOOD COUNT 4.13 X10^6/uL (3.5-5.4); RED CELL DISTRIBUTION WIDTH 15.9 % (11.6-16.5)
[2021-02-15 05:05] LABS: ALANINE AMINOTRANSFERASE 25 Units/L (12-78); ALBUMIN 2.7 g/dL (3.4-5.0); ALKALINE PHOSPHATASE 80 Units/L (46-116); ASPARTATE AMINO TRANSFERASE 13 Units/L (15-37); BLOOD UREA NITROGEN 27 mg/dL (7-18); CALCIUM 9.2 mg/dL (8.5-10.1); CARBON DIOXIDE 32.2 mmol/L (21-32); CHLORIDE 110 mmol/L (98-107); COR CA(FOR HYPOALB) 10.2 mg/dL (8.5-10.1); COR NA(FOR HYPERGLY) 147 mmol/L (136-145); CREATININE 0.93 mg/dL (0.55-1.02); SODIUM 146 mmol/L (136-145); TOTAL PROTEIN 5.8 g/dL (6.4-8.2); eGFR NON BLACK RACES > 60 (>60)
[2021-02-15] MEDS: SOLU-Medrol 125 MG VIAL IVP SCH ×3 (05:23→21:35)
[2021-02-15] MEDS: TUSSIONEX PENNKINETIC SUSP PO PRN ×2 (06:08→20:29)
[2021-02-15] MEDS ORDERED: TOPROL XL PO ONE (08:14)
[2021-02-15] MEDS: TOPROL XL PO SCH (08:45)
[2021-02-15] MEDS: ROBITUSSIN DM PO SCH ×4 (08:45→20:29)
[2021-02-15] MEDS: LASIX PO SCH (08:46)
[2021-02-15] MEDS: PROTONIX TAB 40 MG PO SCH ×2 (08:46→20:28)
[2021-02-15] MEDS: K-DUR TAB 20 MEQ PO SCH (08:46)
[2021-02-15] MEDS: ELIQUIS PO SCH ×2 (08:46→20:28)
[2021-02-15] MEDS: NS 1/2 1000 ML IV 1,000 ML IV SCH (09:11)
[2021-02-15] MEDS: XOPENEX 1.25 MG/3 ML NEBULE NEB SCH ×4 (09:55→20:55)
[2021-02-15] MEDS: PULMICORT NEB TX 0.5 MG NEB SCH ×2 (09:55→20:55)
--- NOTE | 2021-02-15 10:06 | RAD ---
HISTORYBRONCHITISSTUDYCHEST x-ray, 1 VIEWCOMPARISONX-ray 02/13/2021FINDINGSPort catheter terminates in the region of the mid SVC. Borderline CHF could be accentuated due to AP technique. Improvement of atelectasis at the left lung base. No pneumothorax or pleural effusion is seen.IMPRESSIONBorderline CHF changes.Resolution of densities at the left lung base seen on prior study.Electronically signed by: Dontrell Parekh (February 15, 2021 10:05:08)
[2021-02-15] MEDS ORDERED: LEVAQUIN PREMIX IV 500 MG 500 MG/100 ML BAG IV ONE (16:30)
[2021-02-15] MEDS ORDERED: LASIX IVP NR (17:00)
--- NOTE | 2021-02-15 17:31 | PCM.PROG ---
Progress Note - Progress Note for Day of Date of Exam: 02/15/21 - Subjective Subjective: The patient is a 70-year-old white female suffering from bronchopneumonia and failed outpatient treatment. She has a history of chronic obstructive pulmonary disease as well as pulmonary hypertension. The patient reports that she is feeling some better this morning after receiving some IV co rticosteroid therapy. She had some thick mucous production yesterday but had a scant amount for a preliminary sputum culture showing moderate gram positive cocci as well as some moderate white blood cell count, final culture today with Gram +. Pt was started on IV levaquin. The patient denies any hemoptysis. CXR this am with mild CHF changes. pt is on lasix 40mg po daily, we added lasix 20mg IV x 1 dose - Past Medical Family Social History Past Med/Fam/Surg Hx: No changes since H&P Allergies: Allergies adhesive tape Allergy (Verified 09/13/19 12:28) azithromycin [From Zithromax] Allergy (Verified 09/13/19 12:27) morphine Allergy (Verified 09/13/19 12:27) nitrofurantoin [From Macrodantin] Allergy (Verified 09/13/19 12:27) Sulfa (Sulfonamide Antibiotics) [SULFA] Allergy (Verified 09/13/19 12:27) - Review of Systems ROS: No change since H&P - Vital Signs and I&O's Vital Signs: Temperature 98.1 F Pulse Rate [Left Radial] 107 Pulse Rate 118 Respiratory Rate 20 Blood Pressure [Right Arm] 127/72 Blood Pressure [Left Arm] 143/72 O2 Sat by Pulse Oximetry 98 Intake and Output: Intake & Output 02/13/21 02/14/21 02/15/21 02/16/21 11:59 11:59 11:59 11:59 Intake Total 1083 / 1083 1711 / 1711 2223 / 2223 169 / 169 Balance 1083 / 1083 1711 / 1711 2222 / 2223 169 / 169 - Physical Exam Oriented: Person Eyes: Normal Ear: Normal Nose: Normal Throat: Normal Respiratory: Diminished, Wheezes Cardiovascular: Normal, Edema : Normal Auscultation: Bowel Sounds: Normal Tenderness: Normal Skin: Decreased Turgur Musculoskeletal: Normal Psychiatric: Anxiety Affect: Anxious Speech Pattern: Clear, Appropriate - Laboratory and Diagnostics Result Diagrams: 02/15/21 04:10 02/15/21 04:10 Labs: 02/14/21 12:31 Sputum - Expectorated Sputum Sputum Culture - Preliminary 02/14/21 12:31 Sputum - Expectorated Sputum - Final 02/12/21 16:11 Blood Blood Culture - Preliminary 02/12/21 16:01 Blood Blood Culture - Preliminary Laboratory WBC 8.0 X10^3/uL (3.6-10.0) 02/15/21 04:10 RBC 4.13 X10^6/uL (3.5-5.4) 02/15/21 04:10 Hgb 11.6 g/dL (12.0-16.0) L 02/15/21 04:10 Hct 35.0 % (36.0-47.0) L 02/15/21 04:10 MCV 84.6 fL (80.0-100.0) 02/15/21 04:10 MCH 28.0 pg (27.0-34.0) 02/15/21 04:10 MCHC 33.1 g/dL (33.0-35.0) 02/15/21 04:10 RDW 15.9 % (11.6-16.5) 02/15/21 04:10 Plt Count 233 X10^3/uL (150.0-450.0) 02/15/21 04:10 MPV 8.3 fL (7.4-11.0) 02/15/21 04:10 Neut % (Auto) 89.7 % (42.0-75.0) H 02/15/21 04:10 Lymph % (Auto) 7.1 % (21.0-51.0) L 02/15/21 04:10 [place] % (Auto) 3.2 % (0.0-13.0) 02/15/21 04:10 Eos % (Auto) 0.0 % (0.9-2.9) L 02/15/21 04:10 Baso % (Auto) 0 % (0.2-1.0) L 02/15/21 04:10 Neut # (Auto) 7.1 x10^3/uL (2.2-4.8) H 02/15/21 04:10 Lymph # (Auto) 0.6 X10^3/uL (1.3-2.9) L 02/15/21 04:10 [place] # (Auto) 0.3 x10^3/uL (0.3-0.8) 02/15/21 04:10 Eos # (Auto) 0.0 x10^3/uL (0.0-0.2) 02/15/21 04:10 Baso # (Auto) 0.0 X10^3/uL (0.0-0.1) 02/15/21 04:10 Absolute Nucleated RBC 0.1 /100WBC 02/15/21 04:10 Sodium 146 mmol/L (136-145) H 02/15/21 04:10 Corrected Sodium 147 mmol/L (136-145) H 02/15/21 04:10 Potassium 4.2 mmol/L (3.5-5.1) 02/15/21 04:10 Chloride 110 mmol/L (98-107) H 02/15/21 04:10 Carbon Dioxide 32.2 mmol/L (21-32) H 02/15/21 04:10 BUN 27 mg/dL (7-18) H 02/15/21 04:10 Creatinine 0.93 mg/dL (0.55-1.02) 02/15/21 04:10 Est GFR (MDRD) Af Amer > 60 (>60) 02/15/21 04:10 Est GFR (MDRD) Non-Af > 60 (>60) 02/15/21 04:10 Glucose 148 mg/dL (65-99) H 02/15/21 04:10 Calcium 9.2 mg/dL (8.5-10.1) 02/15/21 04:10 Corrected Calcium 10.2 mg/dL (8.5-10.1) H 02/15/21 04:10 Total Bilirubin 0.20 mg/dL (0.2-1.0) 02/15/21 04:10 AST 13 Units/L (15-37) L 02/15/21 04:10 ALT 25 Units/L (12-78) 02/15/21 04:10 Alkaline Phosphatase 80 Units/L (46-116) 02/15/21 04:10 Total Protein 5.8 g/dL (6.4-8.2) L 02/15/21 04:10 Albumin 2.7 g/dL (3.4-5.0) L 02/15/21 04:10 Globulin 3.1 g/dL (2.5-4.5) 02/15/21 04:10 Albumin/Globulin Ratio 0.9 Ratio (1.1-2.1) L 02/15/21 04:10 Specimen Type Clean catch urine 02/12/21 21:25 Urine Color Straw (YELLOW) 02/12/21 21: Urine Appearance Clear (CLEAR) 02/12/21 21: Urine pH 6.0 (5.0 - 8.0) 02/12/21 21:25 Ur Specific [place] 1.010 (1.000-1.030) 02/12/21 21:25 Urine Protein Negative (NEGATIVE) 02/12/21 21: Urine Glucose (UA) Negative (NEGATIVE) 02/12/21 21: Urine Ketones Negative (NEGATIVE) 02/12/21 21: Urine Occult Blood 2+ (NEGATIVE) 02/12/21 21:25 Urine Nitrite Negative (NEGATIVE) 02/12/21 21: Urine Bilirubin Negative (NEGATIVE) 02/12/21 21: Urine Urobilinogen Normal (NORMAL) 02/12/21 21:25 Ur Leukocyte Esterase Negative (NEGATIVE) 02/12/21 21:25 Urine RBC 0-2 /HPF (0-3) 02/12/21 21:25 Urine WBC 0-2 /HPF (0-5) 02/12/21 21:25 Ur Squamous Epith Cells Rare /HPF (NEGATIVE) 02/12/21 21:25 Urine Bacteria Negative /HPF (NEGATIVE) 02/12/21 21:25 Ur Culture Indicated? No/not indicated 02/12/21 21:25 RSV Nasal Swab Negative (NEGATIVE) 02/12/21 17:12 Influenza Type A Ag Negative-presumptive (NEGATIVE) 02/12/21 17:12 Influenza Type B Ag Negative-presumptive (NEGATIVE) 02/12/21 17:12 SARS CoV-2 RNA Rapid WILLA Negative (NEGATIVE) 02/12/21 15:36 - Plan (1) Acute bronchitis with chronic obstructive pulmonary disease (COPD) Status: Acute Plan: CONTINUE RESP THERAPY, SPUTUM CULTURE, BC ON ADMISSION. RSV AND FLU SWAB. CT CHEST THIS AM PER PULMONARY, WILL OBTAIN RESULTS. GENTLE IV HYDRATION, IV LEVAQUIN. VERIFY AND RESUME HOME MEDICATION (2) Chronic a-fib Status: Acute (3) SOB (shortness of breath) Status: Acute (4) CAD (coronary artery disease) Status: Chronic (5) Hyperlipidemia Status: Chronic
[2021-02-15] MEDS: SINGULAIR TAB 10 MG PO SCH (20:27)
[2021-02-15] MEDS: CRESTOR TAB 10 MG PO SCH (20:28)
[2021-02-15] MEDS: NEURONTIN CAP 100 MG PO SCH (20:28)
[2021-02-15] MEDS: ZETIA TAB 10 MG PO SCH (20:28)
[2021-02-16] MEDS: SOLU-Medrol 125 MG VIAL IVP SCH ×3 (05:04→21:14)
[2021-02-16 05:10] LABS: BASOPHILS % (AUTO) 0 % (0.2-1.0); HEMATOCRIT 36.2 % (36.0-47.0); HEMOGLOBIN 11.7 g/dL (12.0-16.0); LYMPHOCYTES # (AUTO) 0.5 X10^3/uL (1.3-2.9); LYMPHOCYTES % (AUTO) 8.3 % (21.0-51.0); MEAN CORPUSCULAR HEMOGLOBIN 27.5 pg (27.0-34.0); MEAN CORPUSCULAR HGB CONC 32.2 g/dL (33.0-35.0); MEAN CORPUSCULAR VOLUME 85.2 fL (80.0-100.0); MEAN PLATELET VOLUME 8.3 fL (7.4-11.0); MONOCYTES # (AUTO) 0.3 x10^3/uL (0.3-0.8); MONOCYTES % (AUTO) 4.6 % (0.0-13.0); NEUTROPHILS # (AUTO) 5.5 x10^3/uL (2.2-4.8); NEUTROPHILS % (AUTO) 87.1 % (42.0-75.0); PLATELET COUNT 226 X10^3/uL (150.0-450.0); RED BLOOD COUNT 4.24 X10^6/uL (3.5-5.4); RED CELL DISTRIBUTION WIDTH 15.8 % (11.6-16.5); WHITE BLOOD COUNT 6.3 X10^3/uL (3.6-10.0)
[2021-02-16 05:11] LABS: ALANINE AMINOTRANSFERASE 26 Units/L (12-78); ALBUMIN 2.7 g/dL (3.4-5.0); ALKALINE PHOSPHATASE 78 Units/L (46-116); ASPARTATE AMINO TRANSFERASE 14 Units/L (15-37); BLOOD UREA NITROGEN 23 mg/dL (7-18); CALCIUM 8.7 mg/dL (8.5-10.1); CARBON DIOXIDE 33.1 mmol/L (21-32); CHLORIDE 107 mmol/L (98-107); COR CA(FOR HYPOALB) 9.7 mg/dL (8.5-10.1); COR NA(FOR HYPERGLY) 143 mmol/L (136-145); CREATININE 1.02 mg/dL (0.55-1.02); SODIUM 142 mmol/L (136-145); TOTAL PROTEIN 5.9 g/dL (6.4-8.2); eGFR NON BLACK RACES 57 (>60)
[2021-02-16] MEDS ORDERED: POTASSIUM CHL 60 MEQ/NS 0.45% 500 ML IV PRN (07:06)
[2021-02-16] MEDS ORDERED: KLOR-CON PO PRN (07:06)
[2021-02-16] MEDS ORDERED: POTASSIUM CHLORIDE LIQ 20 MEQ UDC PO PRN (07:06)
[2021-02-16] MEDS ORDERED: K-RIDER 10 MEQ/NS 100 ML 10 MEQ/100 ML BAG IV PRN (07:06)
[2021-02-16] MEDS ORDERED: MICRO K EXTEN CAP 10 MEQ PO PRN (07:06)
[2021-02-16] MEDS ORDERED: K-DUR TAB 20 MEQ PO PRN (07:06)
[2021-02-16] MEDS ORDERED: POTASSIUM CHL 40 MEQ/NS 0.45% 500 ML IV PRN (07:06)
[2021-02-16] MEDS ORDERED: TOPROL XL PO ONE (08:22)
[2021-02-16] MEDS: LASIX PO SCH (08:34)
[2021-02-16] MEDS: PROTONIX TAB 40 MG PO SCH ×2 (08:34→21:12)
[2021-02-16] MEDS: ROBITUSSIN DM PO SCH ×4 (08:34→21:13)
[2021-02-16] MEDS: K-DUR TAB 20 MEQ PO SCH (08:34)
[2021-02-16] MEDS: ELIQUIS PO SCH ×2 (08:35→21:11)
[2021-02-16] MEDS: NS 1/2 1000 ML IV 1,000 ML IV SCH (08:36)
[2021-02-16] MEDS: TOPROL XL PO SCH (08:36)
[2021-02-16] MEDS ORDERED: LEVAQUIN PREMIX IV 500 MG 500 MG/100 ML BAG IV ONE (08:51)
[2021-02-16] MEDS: PULMICORT NEB TX 0.5 MG NEB SCH ×2 (09:10→21:27)
[2021-02-16] MEDS: XOPENEX 1.25 MG/3 ML NEBULE NEB SCH ×4 (09:10→21:27)
[2021-02-16] MEDS: MUCINEX DM PO SCH ×2 (10:47→21:11)
[2021-02-16] MEDS: MUCOMYST (RESPIRATORY USE ONLY) NEB SCH ×2 (16:23→21:27)
[2021-02-16] MEDS: ATARAX TAB 25 MG PO PRN (17:47)
[2021-02-16] MEDS: CRESTOR TAB 10 MG PO SCH (21:10)
[2021-02-16] MEDS: NEURONTIN CAP 100 MG PO SCH (21:12)
[2021-02-16] MEDS: ZETIA TAB 10 MG PO SCH (21:13)
[2021-02-16] MEDS: SINGULAIR TAB 10 MG PO SCH (21:13)
[2021-02-17] MEDS ORDERED: NS 1/2 1000 ML IV 1,000 ML IV ONE ×2 (05:42→19:30)
[2021-02-17 05:54] LABS: ALANINE AMINOTRANSFERASE 38 Units/L (12-78); ALBUMIN 2.7 g/dL (3.4-5.0); ALKALINE PHOSPHATASE 75 Units/L (46-116); ASPARTATE AMINO TRANSFERASE 25 Units/L (15-37); BLOOD UREA NITROGEN 22 mg/dL (7-18); CALCIUM 8.6 mg/dL (8.5-10.1); CARBON DIOXIDE 34.6 mmol/L (21-32); CHLORIDE 107 mmol/L (98-107); COR CA(FOR HYPOALB) 9.6 mg/dL (8.5-10.1); COR NA(FOR HYPERGLY) 146 mmol/L (136-145); CREATININE 1.01 mg/dL (0.55-1.02); SODIUM 144 mmol/L (136-145); TOTAL PROTEIN 5.9 g/dL (6.4-8.2); eGFR NON BLACK RACES 58 (>60)
[2021-02-17 06:05] LABS: BASOPHILS % (AUTO) 0.1 % (0.2-1.0); HEMOGLOBIN 12.2 g/dL (12.0-16.0); LYMPHOCYTES # (AUTO) 0.6 X10^3/uL (1.3-2.9); MONOCYTES # (AUTO) 0.3 x10^3/uL (0.3-0.8); RED BLOOD COUNT 4.41 X10^6/uL (3.5-5.4); RED CELL DISTRIBUTION WIDTH 15.5 % (11.6-16.5)
--- NOTE | 2021-02-17 06:09 | RAD ---
HISTORYPneumoniaSTUDYAP chestCOMPARISONMay 2020FINDINGSStable upper-normal heart size. No change in position of right subclavian port. Angular deformity of left cardiac apex consistent with atelectasis or pleural-pericardial adhesion. No airspace disease, pulmonary edema, pneumothorax or pleural fluid. There is no convincing evidence for CHF.IMPRESSIONNo acute/significant chest findings. See above.Electronically signed by: VIRGINIA GONZALES (February 17, 2021 06:07:17)
[2021-02-17 06:11] LABS: EOSINOPHILS % (AUTO) 0.1 % (0.9-2.9); HEMATOCRIT 37.1 % (36.0-47.0); LYMPHOCYTES % (AUTO) 10.1 % (21.0-51.0); MEAN CORPUSCULAR HEMOGLOBIN 27.7 pg (27.0-34.0); MEAN CORPUSCULAR HGB CONC 32.9 g/dL (33.0-35.0); MEAN CORPUSCULAR VOLUME 84.1 fL (80.0-100.0); MEAN PLATELET VOLUME 8.4 fL (7.4-11.0); MONOCYTES % (AUTO) 5.6 % (0.0-13.0); NEUTROPHILS # (AUTO) 5.1 x10^3/uL (2.2-4.8); NEUTROPHILS % (AUTO) 84.1 % (42.0-75.0); PLATELET COUNT 213 X10^3/uL (150.0-450.0)
[2021-02-17 06:46] LABS: PLATELET MORPHOLOGY COMMENT NORMAL (NORMAL)
[2021-02-17] MEDS: PULMICORT NEB TX 0.5 MG NEB SCH ×2 (08:37→20:22)
[2021-02-17] MEDS: MUCOMYST (RESPIRATORY USE ONLY) NEB SCH ×2 (08:37→20:22)
[2021-02-17] MEDS: XOPENEX 1.25 MG/3 ML NEBULE NEB SCH ×4 (08:37→20:22)
[2021-02-17] MEDS ORDERED: TOPROL XL PO ONE (09:06)
[2021-02-17] MEDS: MUCINEX DM PO SCH ×2 (09:16→21:03)
[2021-02-17] MEDS: ROBITUSSIN DM PO SCH ×4 (09:16→21:03)
[2021-02-17] MEDS: LEVAQUIN PREMIX IV 500 MG 500 MG/100 ML BAG IV SCH (09:16)
[2021-02-17] MEDS: ELIQUIS PO SCH ×2 (09:16→21:03)
[2021-02-17] MEDS: TOPROL XL PO SCH (09:17)
[2021-02-17] MEDS: K-DUR TAB 20 MEQ PO SCH (09:17)
[2021-02-17] MEDS: PROTONIX TAB 40 MG PO SCH ×2 (09:17→21:03)
[2021-02-17] MEDS: LASIX PO SCH (09:18)
[2021-02-17] MEDS: SOLU-Medrol 125 MG VIAL IVP SCH ×3 (13:22→21:04)
[2021-02-17] MEDS: NS 1/2 1000 ML IV 1,000 ML IV SCH ×2 (13:23→21:05)
[2021-02-17] MEDS: CRESTOR TAB 10 MG PO SCH (21:02)
[2021-02-17] MEDS: NEURONTIN CAP 100 MG PO SCH (21:03)
[2021-02-17] MEDS: SINGULAIR TAB 10 MG PO SCH (21:04)
[2021-02-17] MEDS: ZETIA TAB 10 MG PO SCH (21:04)
--- NOTE | 2021-02-18 00:27 | PCM.PROG ---
Progress Note - Progress Note for Day of Date of Exam: 02/17/21 - Subjective Subjective: IS A 70 YEAR OLD PATIENT OF . SHE IS BEING TREATED FOR BRONCHOPNEUMONIA AND COPD EXACERBATION. SHE HAS A PMH OF AFIB, PULMONARY HTN, GERD, AND OSTEOARTHRITIS. TODAY, SHE IS ALERT AND ORIENTED, SITTING UP IN BED ON MORNING ROUNDS. SHE CONTINUES WITH COMPLAINTS OF COUGH AND SHORTNESS OF BREATH. ON EXAMINATION, HEART IS REGULAR IN RATE AND RHYTHM. BILATERAL LUNGS CONTINUE WITH EXPIRATORY WHEEZING. ABDOMEN IS ROUND, SOFT, AND NON-TENDER WITH NORMAL BOWEL SOUNDS NOTED IN ALL QUARANTS. SHE IS NOTED TO HAVE MILD UPPER AND LOWER EXTREMITY WEAKNESS. HER VITALS THIS MORNING ARE: 97.9-76-18-95%-171/84. LABS WERE OBTAINED. ABNORMAL LAB VALUES INCLUDE THE FOLLOWING: CARBON DIOXIDE 34.6, BUN 22, GLUCOSE 166, TOTAL PROTEIN 5.9, ALBUMIN 2.7. A CHEST XRAY WAS OBTAINED AND REVEALED: Stable upper-normal heart size. No change in position of right subclavian port. Angular deformity of left cardiac apex consistent with atelectasis or pleural-pericardial adhesion. No airspace d isease, pulmonary edema, pneumothorax or pleural fluid. There is no convincing evidence for CHF. SHE IS CURRENTLY RECEIVING 1/2NS AT 20ML/HR, POTASSIUM AND MAGNESIUM PROTOCOLS, SOLU-MEDROL 80MG IV Q8H, LEVAQUIN 500MG IV DAILY, XOPENEX NEBS QID, PULMICORT NEBS BID, MUCOMYST IN NEBS BID, TUSSIONEX Q12H PRN, ROBITUSSIN DM 10ML PO QID, MUCINEX DM 1 TAB PO BID, AND HER HOME MEDICATIONS WERE RESUMED. WE WILL CONTINUE WITH CURRENT PLAN OF CARE TODAY. OTHERWISE, WE PLAN TO FOLLOW UP WITH AM LABS AND CONTINUE TO MONITOR. TIME SPENT ON CLINICAL ASSESSMENT, REVIEWING LABS AND IMAGING, DECISION MAKING, AND DOCUMENTATION WAS GREATER THAN 45 MINUTES. - Past Medical Family Social History Past Med/Fam/Surg Hx: No changes since H&P Allergies: Allergies adhesive tape Allergy (Verified 09/13/19 12:28) azithromycin [From Zithromax] Allergy (Verified 09/13/19 12:27) morphine Allergy (Verified 09/13/19 12:27) nitrofurantoin [From Macrodantin] Allergy (Verified 09/13/19 12:27) Sulfa (Sulfonamide Antibiotics) [SULFA] Allergy (Verified 09/13/19 12:27) - Review of Systems ROS: No change since H&P - Vital Signs and I&O's Vital Signs: Temperature 97.5 F Pulse Rate [Left Radial] 73 Pulse Rate 63 Respiratory Rate 18 Blood Pressure [Right Arm] 171/76 Blood Pressure [Left Arm] 143/72 O2 Sat by Pulse Oximetry 96 Intake and Output: Intake & Output 02/15/21 02/16/21 02/17/21 02/18/21 11:59 11:59 11:59 11:59 Intake Total 2223 / 2223 3345 / 3345 2380 / 2380 1385 / 1385 Balance 2223 / 2223 3345 / 3345 2380 / 2380 1385 / 1385 - Physical Exam Oriented: Person Eyes: Normal Ear: Normal Nose: Normal Throat: Normal Respiratory: Diminished, Wheezes Cardiovascular: Normal : Normal Auscultation: Bowel Sounds: Normal Palpation: Normal Tenderness: Normal Skin: Decreased Turgur Musculoskeletal: Normal Psychiatric: Anxiety Affect: Anxious Speech Pattern: Clear, Appropriate - Laboratory and Diagnostics Result Diagrams: 02/17/21 04:51 02/17/21 04:51 Labs: 02/14/21 12:31 Sputum - Expectorated Sputum Sputum Culture - Final 02/14/21 12:31 Sputum - Expectorated Sputum - Final 02/12/21 16:11 Blood Blood Culture - Preliminary 02/12/21 16:01 Blood Blood Culture - Preliminary Laboratory WBC 6.0 X10^3/uL (3.6-10.0) 02/17/21 04:51 RBC 4.41 X10^6/uL (3.5-5.4) 02/17/21 04:51 Hgb 12.2 g/dL (12.0-16.0) 02/17/21 04:51 Hct 37.1 % (36.0-47.0) 02/17/21 04:51 MCV 84.1 fL (80.0-100.0) 02/17/21 04:51 MCH 27.7 pg (27.0-34.0) 02/17/21 04:51 MCHC 32.9 g/dL (33.0-35.0) L 02/17/21 04:51 RDW 15.5 % (11.6-16.5) 02/17/21 04:51 Plt Count 213 X10^3/uL (150.0-450.0) 02/17/21 04:51 Plt Count Comment Adequate (ADEQUATE) 02/17/21 04:51 MPV 8.4 fL (7.4-11.0) 02/17/21 04:51 Neut % (Auto) 84.1 % (42.0-75.0) H 02/17/21 04:51 Lymph % (Auto) 10.1 % (21.0-51.0) L 02/17/21 04:51 [place] % (Auto) 5.6 % (0.0-13.0) 02/17/21 04:51 Eos % (Auto) 0.1 % (0.9-2.9) L 02/17/21 04:51 Baso % (Auto) 0.1 % (0.2-1.0) L 02/17/21 04:51 Neut # (Auto) 5.1 x10^3/uL (2.2-4.8) H 02/17/21 04:51 Lymph # (Auto) 0.6 X10^3/uL (1.3-2.9) L 02/17/21 04:51 [place] # (Auto) 0.3 x10^3/uL (0.3-0.8) 02/17/21 04:51 Eos # (Auto) 0.0 x10^3/uL (0.0-0.2) 02/17/21 04:51 Baso # (Auto) 0.0 X10^3/uL (0.0-0.1) 02/17/21 04:51 Absolute Nucleated RBC 0.1 /100WBC 02/17/21 04:51 Total Counted 100 02/17/21 04:51 Neutrophils % (Manual) 86 % (39-76) H 02/17/21 04:51 Lymphocytes % (Manual) 9 % (13-43) L 02/17/21 04:51 Monocytes % (Manual) 5 % (4-9) 02/17/21 04:51 Plt Morphology Comment Normal (NORMAL) 02/17/21 04:51 RBC Morphology Normal (NORMAL) 02/17/21 04:51 Sodium 144 mmol/L (136-145) 02/17/21 04:51 Corrected Sodium 146 mmol/L (136-145) H 02/17/21 04:51 Potassium 3.8 mmol/L (3.5-5.1) 02/17/21 04:51 Chloride 107 mmol/L (98-107) 02/17/21 04:51 Carbon Dioxide 34.6 mmol/L (21-32) H 02/17/21 04:51 BUN 22 mg/dL (7-18) H 02/17/21 04:51 Creatinine 1.01 mg/dL (0.55-1.02) 02/17/21 04:51 Est GFR (MDRD) Af Amer > 60 (>60) 02/17/21 04:51 Est GFR (MDRD) Non-Af 58 (>60) L 02/17/21 04:51 Glucose 166 mg/dL (65-99) H 02/17/21 04:51 Calcium 8.6 mg/dL (8.5-10.1) 02/17/21 04:51 Corrected Calcium 9.6 mg/dL (8.5-10.1) 02/17/21 04:51 Magnesium 2.0 mg/dL (1.7-2.9) 02/16/21 04:15 Total Bilirubin 0.30 mg/dL (0.2-1.0) 02/17/21 04:51 AST 25 Units/L (15-37) 02/17/21 04:51 ALT 38 Units/L (12-78) 02/17/21 04:51 Alkaline Phosphatase 75 Units/L (46-116) 02/17/21 04:51 Total Protein 5.9 g/dL (6.4-8.2) L 02/17/21 04:51 Albumin 2.7 g/dL (3.4-5.0) L 02/17/21 04:51 Globulin 3.2 g/dL (2.5-4.5) 02/17/21 04:51 Albumin/Globulin Ratio 0.8 Ratio (1.1-2.1) L 02/17/21 04:51 Specimen Type Clean catch urine 02/12/21 21:25 Urine Color Straw (YELLOW) 02/12/21 21:25 Urine Appearance Clear (CLEAR) 02/12/21 21:25 Urine pH 6.0 (5.0 - 8.0) 02/12/21 21:25 Ur Specific [place] 1.010 (1.000-1.030) 02/12/21 21:25 Urine Protein Negative (NEGATIVE) 02/12/21 21:25 Urine Glucose (UA) Negative (NEGATIVE) 02/12/21 21:25 Urine Ketones Negative (NEGATIVE) 02/12/21 21:25 Urine Occult Blood 2+ (NEGATIVE) 02/12/21 21:25 Urine Nitrite Negative (NEGATIVE) 02/12/21 21:25 Urine Bilirubin Negative (NEGATIVE) 02/12/21 21:25 Urine Urobilinogen Normal (NORMAL) 02/12/21 21:25 Ur Leukocyte Esterase Negative (NEGATIVE) 02/12/21 21:25 Urine RBC 0-2 /HPF (0-3) 02/12/21 21:25 Urine WBC 0-2 /HPF (0-5) 02/12/21 21:25 Ur Squamous Epith Cells Rare /HPF (NEGATIVE) 02/12/21 21:25 Urine Bacteria Negative /HPF (NEGATIVE) 02/12/21 21:25 Ur Culture Indicated? No/not indicated 02/12/21 21:25 RSV Nasal Swab Negative (NEGATIVE) 02/12/21 17:12 Influenza Type A Ag Negative-presumptive (NEGATIVE) 02/12/21 17:12 Influenza Type B Ag Negative-presumptive (NEGATIVE) 02/12/21 17:12 SARS CoV-2 RNA Rapid WILLA Negative (NEGATIVE) 02/12/21 15:36 - Plan (1) Bronchopneumonia Status: Acute (2) COPD (chronic obstructive pulmonary disease) Status: Chronic Qualifiers: COPD type: unspecified COPD Qualified Code(s): J44.9 - Chronic obstructive pulmonary disease, unspecified (3) SOB (shortness of breath) Status: Acute
[2021-02-18] MEDS: SOLU-Medrol 125 MG VIAL IVP SCH ×3 (05:25→21:20)
[2021-02-18 06:16] LABS: BASOPHILS % (AUTO) 0.5 % (0.2-1.0); EOSINOPHILS % (AUTO) 0.4 % (0.9-2.9); HEMATOCRIT 39.9 % (36.0-47.0); HEMOGLOBIN 13.1 g/dL (12.0-16.0); LYMPHOCYTES # (AUTO) 0.6 X10^3/uL (1.3-2.9); LYMPHOCYTES % (AUTO) 10.4 % (21.0-51.0); MEAN CORPUSCULAR HEMOGLOBIN 27.7 pg (27.0-34.0); MEAN CORPUSCULAR HGB CONC 32.9 g/dL (33.0-35.0); MEAN PLATELET VOLUME 8.3 fL (7.4-11.0); MONOCYTES # (AUTO) 0.3 x10^3/uL (0.3-0.8); MONOCYTES % (AUTO) 4.5 % (0.0-13.0); NEUTROPHILS # (AUTO) 5.1 x10^3/uL (2.2-4.8); NEUTROPHILS % (AUTO) 84.2 % (42.0-75.0); PLATELET COUNT 225 X10^3/uL (150.0-450.0); RED BLOOD COUNT 4.75 X10^6/uL (3.5-5.4); RED CELL DISTRIBUTION WIDTH 15.6 % (11.6-16.5)
[2021-02-18 06:38] LABS: ALANINE AMINOTRANSFERASE 59 Units/L (12-78); ALBUMIN 2.8 g/dL (3.4-5.0); ALKALINE PHOSPHATASE 77 Units/L (46-116); ASPARTATE AMINO TRANSFERASE 29 Units/L (15-37); BLOOD UREA NITROGEN 20 mg/dL (7-18); CALCIUM 8.6 mg/dL (8.5-10.1); CHLORIDE 105 mmol/L (98-107); COR CA(FOR HYPOALB) 9.6 mg/dL (8.5-10.1); COR NA(FOR HYPERGLY) 146 mmol/L (136-145); SODIUM 145 mmol/L (136-145); TOTAL PROTEIN 6.1 g/dL (6.4-8.2); eGFR NON BLACK RACES 58 (>60)
--- NOTE | 2021-02-18 06:45 | RAD ---
HISTORYSOBSTUDYAP [id number] normal heart size with essentially clear lungs. There is no evidence for developing airspace disease, edema, pneumothorax or pleural fluid. Stable position of injection port.IMPRESSIONNo change; no acute findings.Electronically signed by: VIRGINIA GONZALES (February 18, 2021 06:43:56)
[2021-02-18] MEDS ORDERED: MAGNESIUM SULFATE 1 GRAM/100 mL PREMIX 1 GM/100 ML BAG IV PRN (08:41)
[2021-02-18] MEDS ORDERED: TOPROL XL PO ONE (08:54)
[2021-02-18] MEDS: PULMICORT NEB TX 0.5 MG NEB SCH ×2 (09:11→21:08)
[2021-02-18] MEDS: MUCOMYST (RESPIRATORY USE ONLY) NEB SCH ×2 (09:11→21:09)
[2021-02-18] MEDS: XOPENEX 1.25 MG/3 ML NEBULE NEB SCH ×4 (09:11→21:09)
[2021-02-18] MEDS: TOPROL XL PO SCH (09:20)
[2021-02-18] MEDS: ROBITUSSIN DM PO SCH ×4 (09:20→20:04)
[2021-02-18] MEDS: ELIQUIS PO SCH ×2 (09:20→20:04)
[2021-02-18] MEDS: MUCINEX DM PO SCH ×2 (09:20→20:05)
[2021-02-18] MEDS: PROTONIX TAB 40 MG PO SCH ×2 (09:20→20:05)
[2021-02-18] MEDS: K-DUR TAB 20 MEQ PO SCH (09:20)
[2021-02-18] MEDS: LEVAQUIN PREMIX IV 500 MG 500 MG/100 ML BAG IV SCH (09:20)
[2021-02-18] MEDS: LASIX PO SCH (09:20)
[2021-02-18] MEDS: NS 1/2 1000 ML IV 1,000 ML IV SCH (13:08)
[2021-02-18] MEDS: NEURONTIN CAP 100 MG PO SCH (20:05)
[2021-02-18] MEDS: ZETIA TAB 10 MG PO SCH (20:05)
[2021-02-18] MEDS: CRESTOR TAB 10 MG PO SCH (20:05)
[2021-02-18] MEDS: SINGULAIR TAB 10 MG PO SCH (20:05)
[2021-02-18] MEDS: ATARAX TAB 25 MG PO PRN (20:18)
--- NOTE | 2021-02-19 00:05 | PCM.PROG ---
Progress Note - Progress Note for Day of Date of Exam: 02/18/21 - Subjective Subjective: IS A 70 YEAR OLD PATIENT OF . SHE IS BEING TREATED FOR BRONCHOPNEUMONIA AND COPD EXACERBATION. SHE HAS A PMH OF AFIB, PULMONARY HTN, GERD, AND OSTEOARTHRITIS. TODAY, SHE IS ALERT AND ORIENTED, SITTING UP IN BED ON MORNING ROUNDS. SHE CONTINUES WITH COMPLAINTS OF COUGH AND SHORTNESS OF BREATH. ON EXAMINATION, HEART IS REGULAR IN RATE AND RHYTHM. BILATERAL LUNGS NOTED WITH DIMINISHED LUNG SOUNDS THROUGHOUT. ABDOMEN IS ROUND, SOFT, AND NON-TENDER WITH NORMAL BOWEL SOUNDS NOTED IN ALL QUARANTS. SHE IS NOTED TO HAVE MILD UPPER AND LOWER EXTREMITY WEAKNESS. HER VITALS THIS MORNING ARE: 98.3-78-18-96%-178/77. LABS WERE OBTAINED. ABNORMAL LAB VALUES INCLUDE THE FOLLOWING: POTASSIUM 3.3, CARBON DIOXIDE 34, BUN 20, GLUCOSE 159, TOTAL PROTEIN 6.1, ALBUMIN 2.8. A CHEST XRAY WAS OBTAINED AND REVEALED: Similar normal heart size with essentially clear lungs. There is no evidence for developing airspace disease, edema, pneumothorax or pleural fluid. Stable position of injection port. SHE IS CURRENTLY RECEIVING 1/2NS AT 20ML/HR, POTASSIUM AND MAGNESIUM PROTOCOLS, SOLU-MEDROL 80MG IV Q8H, LEVAQUIN 500MG IV DAILY, XOPENEX NEBS QID, PULMICORT NEBS BID, MUCOMYST IN NEBS BID, TUSSIONEX Q12H PRN, ROBITUSSIN DM 10ML PO QID, MUCINEX DM 1 TAB PO BID, AND HER HOME MEDICATIONS WERE RESUMED. WE WILL CONTINUE WITH CURRENT PLAN OF CARE TODAY. OTHERWISE, WE PLAN TO FOLLOW UP WITH AM LABS AND CONTINUE TO MONITOR. TIME SPENT ON CLINICAL ASSESSMENT, REVIEWING LABS AND IMAGING, DECISION MAKING, AND DOCUMENTATION WAS GREATER THAN 45 MINUTES. - Past Medical Family Social History Past Med/Fam/Surg Hx: No changes since H&P Allergies: Allergies adhesive tape Allergy (Verified 09/13/19 12:28) azithromycin [From Zithromax] Allergy (Verified 09/13/19 12:27) morphine Allergy (Verified 09/13/19 12:27) nitrofurantoin [From Macrodantin] Allergy (Verified 09/13/19 12:27) Sulfa (Sulfonamide Antibiotics) [SULFA] Allergy (Verified 09/13/19 12:27) - Review of Systems ROS: No change since H&P - Vital Signs and I&O's Vital Signs: Temperature 98.1 F Pulse Rate [Left Radial] 76 Pulse Rate 67 Respiratory Rate 20 Blood Pressure [Right Arm] 133/68 Blood Pressure [Left Arm] 143/72 O2 Sat by Pulse Oximetry 97 Intake and Output: Intake & Output 02/16/21 02/17/21 02/18/21 02/19/21 11:59 11:59 11:59 11:59 Intake Total 3345 / 3345 2380 / 2380 1819 / 1819 926 / 926 Balance 3345 / 3345 2380 / 2380 1819 / 1819 926 / 926 - Physical Exam Oriented: Person Eyes: Normal Ear: Normal Nose: Normal Throat: Normal Respiratory: Diminished, Wheezes Cardiovascular: Normal : Normal Auscultation: Bowel Sounds: Normal Palpation: Normal Tenderness: Normal Skin: Decreased Turgur Musculoskeletal: Normal Psychiatric: Anxiety Affect: Anxious Speech Pattern: Clear, Appropriate - Laboratory and Diagnostics Result Diagrams: 02/18/21 05:22 02/18/21 22:11 Labs: 02/12/21 16:11 Blood Blood Culture - Final 02/12/21 16:01 Blood Blood Culture - Final 02/14/21 12:31 Sputum - Expectorated Sputum Sputum Culture - Final 02/14/21 12:31 Sputum - Expectorated Sputum - Final Laboratory WBC 6.0 X10^3/uL (3.6-10.0) 02/18/21 05:22 RBC 4.75 X10^6/uL (3.5-5.4) 02/18/21 05:22 Hgb 13.1 g/dL (12.0-16.0) 02/18/21 05:22 Hct 39.9 % (36.0-47.0) 02/18/21 05:22 MCV 84.0 fL (80.0-100.0) 02/18/21 05:22 MCH 27.7 pg (27.0-34.0) 02/18/21 05:22 MCHC 32.9 g/dL (33.0-35.0) L 02/18/21 05:22 RDW 15.6 % (11.6-16.5) 02/18/21 05:22 Plt Count 225 X10^3/uL (150.0-450.0) 02/18/21 05:22 Plt Count Comment Adequate (ADEQUATE) 02/17/21 04:51 MPV 8.3 fL (7.4-11.0) 02/18/21 05:22 Neut % (Auto) 84.2 % (42.0-75.0) H 02/18/21 05:22 Lymph % (Auto) 10.4 % (21.0-51.0) L 02/18/21 05:22 [place] % (Auto) 4.5 % (0.0-13.0) 02/18/21 05:22 Eos % (Auto) 0.4 % (0.9-2.9) L 02/18/21 05:22 Baso % (Auto) 0.5 % (0.2-1.0) 02/18/21 05:22 Neut # (Auto) 5.1 x10^3/uL (2.2-4.8) H 02/18/21 05:22 Lymph # (Auto) 0.6 X10^3/uL (1.3-2.9) L 02/18/21 05:22 [place] # (Auto) 0.3 x10^3/uL (0.3-0.8) 02/18/21 05:22 Eos # (Auto) 0.0 x10^3/uL (0.0-0.2) 02/18/21 05:22 Baso # (Auto) 0.0 X10^3/uL (0.0-0.1) 02/18/21 05:22 Absolute Nucleated RBC 0.1 /100WBC 02/18/21 05:22 Total Counted 100 02/17/21 04:51 Neutrophils % (Manual) 86 % (39-76) H 02/17/21 04:51 Lymphocytes % (Manual) 9 % (13-43) L 02/17/21 04:51 Monocytes % (Manual) 5 % (4-9) 02/17/21 04:51 Plt Morphology Comment Normal (NORMAL) 02/17/21 04:51 RBC Morphology Normal (NORMAL) 02/17/21 04:51 Sodium 145 mmol/L (136-145) 02/18/21 05:22 Corrected Sodium 146 mmol/L (136-145) H 02/18/21 05:22 Potassium 3.7 mmol/L (3.5-5.1) 02/18/21 22:11 Chloride 105 mmol/L (98-107) 02/18/21 05:22 Carbon Dioxide 34.0 mmol/L (21-32) H 02/18/21 05:22 BUN 20 mg/dL (7-18) H 02/18/21 05:22 Creatinine 1.00 mg/dL (0.55-1.02) 02/18/21 05:22 Est GFR (MDRD) Af Amer > 60 (>60) 02/18/21 05:22 Est GFR (MDRD) Non-Af 58 (>60) L 02/18/21 05:22 Glucose 159 mg/dL (65-99) H 02/18/21 05:22 Calcium 8.6 mg/dL (8.5-10.1) 02/18/21 05:22 Corrected Calcium 9.6 mg/dL (8.5-10.1) 02/18/21 05:22 Magnesium 2.3 mg/dL (1.7-2.9) 02/18/21 05:22 Total Bilirubin 0.40 mg/dL (0.2-1.0) 02/18/21 05:22 AST 29 Units/L (15-37) 02/18/21 05:22 ALT 59 Units/L (12-78) 02/18/21 05:22 Alkaline Phosphatase 77 Units/L (46-116) 02/18/21 05:22 Total Protein 6.1 g/dL (6.4-8.2) L 02/18/21 05:22 Albumin 2.8 g/dL (3.4-5.0) L 02/18/21 05:22 Globulin 3.3 g/dL (2.5-4.5) 02/18/21 05:22 Albumin/Globulin Ratio 0.8 Ratio (1.1-2.1) L 02/18/21 05:22 Specimen Type Clean catch urine 02/12/21 21:25 Urine Color Straw (YELLOW) 02/12/21 21:25 Urine Appearance Clear (CLEAR) 02/12/21 21:25 Urine pH 6.0 (5.0 - 8.0) 02/12/21 21:25 Ur Specific [place] 1.010 (1.000-1.030) 02/12/21 21:25 Urine Protein Negative (NEGATIVE) 02/12/21 21:25 Urine Glucose (UA) Negative (NEGATIVE) 02/12/21 21:25 Urine Ketones Negative (NEGATIVE) 02/12/21 21:25 Urine Occult Blood 2+ (NEGATIVE) 02/12/21 21:25 Urine Nitrite Negative (NEGATIVE) 02/12/21 21:25 Urine Bilirubin Negative (NEGATIVE) 02/12/21 21:25 Urine Urobilinogen Normal (NORMAL) 02/12/21 21:25 Ur Leukocyte Esterase Negative (NEGATIVE) 02/12/21 21:25 Urine RBC 0-2 /HPF (0-3) 02/12/21 21:25 Urine WBC 0-2 /HPF (0-5) 02/12/21 21:25 Ur Squamous Epith Cells Rare /HPF (NEGATIVE) 02/12/21 21:25 Urine Bacteria Negative /HPF (NEGATIVE) 02/12/21 21:25 Ur Culture Indicated? No/not indicated 02/12/21 21:25 RSV Nasal Swab Negative (NEGATIVE) 02/12/21 17:12 Influenza Type A Ag Negative-presumptive (NEGATIVE) 02/12/21 17:12 Influenza Type B Ag Negative-presumptive (NEGATIVE) 02/12/21 17:12 SARS CoV-2 RNA Rapid WILLA Negative (NEGATIVE) 02/12/21 15:36 - Plan (1) Bronchopneumonia Status: Acute (2) COPD (chronic obstructive pulmonary disease) Status: Chronic Qualifiers: COPD type: unspecified COPD Qualified Code(s): J44.9 - Chronic obstructive pulmonary disease, unspecified (3) SOB (shortness of breath) Status: Acute
[2021-02-19 05:46] LABS: BASOPHILS % (AUTO) 0.2 % (0.2-1.0); HEMATOCRIT 37.3 % (36.0-47.0); HEMOGLOBIN 12.5 g/dL (12.0-16.0); LYMPHOCYTES # (AUTO) 0.7 X10^3/uL (1.3-2.9); LYMPHOCYTES % (AUTO) 10.3 % (21.0-51.0); MEAN CORPUSCULAR HEMOGLOBIN 27.7 pg (27.0-34.0); MEAN CORPUSCULAR HGB CONC 33.5 g/dL (33.0-35.0); MEAN CORPUSCULAR VOLUME 82.9 fL (80.0-100.0); MEAN PLATELET VOLUME 8.4 fL (7.4-11.0); MONOCYTES # (AUTO) 0.3 x10^3/uL (0.3-0.8); MONOCYTES % (AUTO) 4.2 % (0.0-13.0); NEUTROPHILS # (AUTO) 6.2 x10^3/uL (2.2-4.8); NEUTROPHILS % (AUTO) 85.3 % (42.0-75.0); PLATELET COUNT 219 X10^3/uL (150.0-450.0); RED CELL DISTRIBUTION WIDTH 15.6 % (11.6-16.5); WHITE BLOOD COUNT 7.2 X10^3/uL (3.6-10.0)
[2021-02-19] MEDS: SOLU-Medrol 125 MG VIAL IVP SCH (05:48)
[2021-02-19 05:55] LABS: ALANINE AMINOTRANSFERASE 62 Units/L (12-78); ALBUMIN 2.6 g/dL (3.4-5.0); ALKALINE PHOSPHATASE 68 Units/L (46-116); ASPARTATE AMINO TRANSFERASE 23 Units/L (15-37); BLOOD UREA NITROGEN 23 mg/dL (7-18); CALCIUM 8.3 mg/dL (8.5-10.1); CARBON DIOXIDE 35.4 mmol/L (21-32); CHLORIDE 104 mmol/L (98-107); COR CA(FOR HYPOALB) 9.4 mg/dL (8.5-10.1); COR NA(FOR HYPERGLY) 146 mmol/L (136-145); CREATININE 0.91 mg/dL (0.55-1.02); SODIUM 144 mmol/L (136-145); TOTAL PROTEIN 5.4 g/dL (6.4-8.2); eGFR NON BLACK RACES > 60 (>60)
[2021-02-19 06:33] LABS: BAND NEUTROPHILS % 3 % (0-10); PLATELET MORPHOLOGY COMMENT NORMAL (NORMAL)
--- NOTE | 2021-02-19 07:48 | RAD ---
HISTORYSOBSTUDYCHEST, 1 VIEWCOMPARISONPortable chest February 18, 2021FINDINGSThe trachea is midline. The cardiac silhouette is unremarkable. A right subclavian port is in place. The lungs are clear without focal infiltrate or effusion. The bony thorax is unremarkable.IMPRESSIONNo acute cardiopulmonary disease no change from recent film February 18, 2021..Electronically signed by: IJEOMA SAXENA (February 19, 2021 07:46:33)
[2021-02-19] MEDS ORDERED: TOPROL XL PO ONE (08:42)
[2021-02-19] MEDS: LEVAQUIN PREMIX IV 500 MG 500 MG/100 ML BAG IV SCH (08:51)
[2021-02-19] MEDS: K-DUR TAB 20 MEQ PO SCH (08:52)
[2021-02-19] MEDS: PROTONIX TAB 40 MG PO SCH (08:52)
[2021-02-19] MEDS: TOPROL XL PO SCH (08:52)
[2021-02-19] MEDS: ROBITUSSIN DM PO SCH ×2 (08:52→13:34)
[2021-02-19] MEDS: MUCINEX DM PO SCH (08:52)
[2021-02-19] MEDS: ELIQUIS PO SCH (08:52)
[2021-02-19] MEDS: LASIX PO SCH (08:52)
[2021-02-19] MEDS: MUCOMYST (RESPIRATORY USE ONLY) NEB SCH (09:34)
[2021-02-19] MEDS: XOPENEX 1.25 MG/3 ML NEBULE NEB SCH (09:34)
[2021-02-19] MEDS: PULMICORT NEB TX 0.5 MG NEB SCH (09:34)
[2021-02-19 12:54] VITALS: BP 137/68
[2021-02-19] MEDS ORDERED: ELIQUIS PO SCH (15:46)
== END 2021-02-19 13:50 | disposition home or self-care (01) | DRG 194 ==
LOC: MED/SURG
PROVIDERS: ADMIT Internal Medicine; ATTEND Internal Medicine
DX: Z20.822 Contact with and (suspected) exposure to COVID-19; J18.0 Bronchopneumonia, unspecified organism; R50.9 Fever, unspecified; I27.20 Pulmonary hypertension, unspecified; Z79.01 Long term (current) use of anticoagulants; R06.02 Shortness of breath; J44.1 Chronic obstructive pulmonary disease with (acute) exacerbation; I25.10 Atherosclerotic heart disease of native coronary artery without angina pectoris; J44.0 Chronic obstructive pulmonary disease with (acute) lower respiratory infection; E78.2 Mixed hyperlipidemia; M51.36 Other intervertebral disc degeneration, lumbar region; I48.20 Chronic atrial fibrillation, unspecified